=== PATIENT | male | born 1935 | race Caucasian/White ===

== ENCOUNTER 2020-07-12 10:36 | Outpatient (CLI) | payer MEDICARE, OTHER, SELFPAY ==
--- NOTE | 2020-07-12 11:11 | XR_ITS ---
WS: [id number] Exam: XR chest 2V* [id number] Date/Time of Exam: 07/12/2020 11:11 AM Reason For Exam: Shortness of breath Comparison 03/27/2017. The lungs are fully expanded. Chronic interstitial change in the left lower lobe. Heart size is koffi l. Signs of previous CABG surgery. No pleural effusion or pneumothorax. The mediastinum is normal in contour. Regional bony structures are unremarkable. XR/XR chest 2V* [id number] IMPRESSION: 1. Chronic interstitial changes in the left base. 2. No acute process noted.
== END 2020-07-12 10:37 | disposition home or self-care (01) ==
PROVIDERS: PCP Electrodiagnostic Medicine; Visit Provider Internal Medicine Critical Care Medicine
DX: R06.02 Shortness of breath (principal)
CPT/HCPCS: 71046

== ENCOUNTER → 2020-07-30 09:41 | Outpatient (BNVA) | payer MEDICARE, OTHER, SELFPAY | PROVIDERS: PCP Electrodiagnostic Medicine; Visit Provider Internal Medicine Critical Care Medicine | DX: I25.10 Atherosclerotic heart disease of native coronary artery without angina pectoris (principal) | CPT/HCPCS: 87635 ==

== ENCOUNTER 2020-08-03 11:19 | Outpatient (CLI) | payer MEDICARE, OTHER, SELFPAY ==
--- NOTE | 2020-08-03 12:45 | USCV_ITS ---
Florin Rouse Age: 85 Gender: M : 1935 Exam Date: 08/03/2020 11:53 Ordering Phys: Juliano Zavala MD Technologist: Maryjane Huitron Exam Location: [facility] [place] Indication: SOB BP: 146 / 69 HR: 52 Rhythm: Sinus Technical Quality: Fair MEASUREMENTS (Male / Female) Normal Values 2D ECHO LV Diastolic Diameter PLAX 5.8 cm 4.2 - 5.9 / 3.9 - 5.3 cm LV Systolic Diameter PLAX 4.9 cm LV Chamber Size 4.5 cm IVS Diastolic Thickness 0.9 cm 0.6 - 1.0 / 0.6 - 0.9 cm IVS Systolic Thickness 1.3 cm LVPW Diastolic Thickness 0.8 cm 0.6 - 1.0 / 0.6 - 0.9 cm LVPW Systolic Thickness 0.8 cm RV Chamber Size 3.7 cm LVOT Diameter 2.0 cm LV Ejection Fraction 2D Teich 32.4 % LV Ejection Fraction MOD 2C 55.8 % LV Ejection Fraction 2C AL 59.7 % LA Diameter 3.2 cm LA Width 3.5 cm LA Height 4.5 cm RA Width 2.7 cm RA Height 4.3 cm Aorta at Sinotubular Diameter 2.4 cm M-MODE LV Diastolic Diameter MM 4.9 cm 4.2 - 5.9 / 3.9 - 5.3 cm LV Systolic Diameter MM 4.2 cm LV Ejection Fraction MM Teich 33.6 % IVS Diastolic Thickness MM 0.6 cm 0.6 - 1.0 / 0.6 - 0.9 cm IVS Systolic Thickness MM 0.6 cm LVPW Diastolic Thickness MM 1.2 cm 0.6 - 1.0 / 0.6 - 0.9 cm LVPW Systolic Thickness MM 1.4 cm Aortic Annulus Diameter 3.0 cm LA Ao Ratio MM 1.2 MV E Point Septal Separation 0.6 cm DOPPLER AV Peak Velocity 92.0 cm/s LVOT Peak Velocity 66.0 cm/s AV Area Cont Eq vti 2.3 cm squared AV Area Cont Eq pk 2.3 cm squared MV Area PHT 2.6 cm squared Mitral E to A Ratio 0.9 MV E' Velocity 31.0 cm/s Mitral E to MV E' Ratio 4.9 Mitral E to LV E' Lateral Ratio 5.2 Mitral E to LV E' Septal Ratio 4.7 TR Peak Velocity 209.2 cm/s TR Peak Gradient 17.5 mmHg TR Mean Velocity 166.4 cm/s TR Mean Gradient 12.2 mmHg TR Velocity Time Integral 71.0 cm TV Peak E Velocity 48.0 cm/s Right Atrial Pressure 3.0 mmHg Pulmonary Artery Systolic Pressu 20.5 mmHg PV Peak Velocity 98.0 cm/s RV Acceleration Time 0.1 s RV Ejection Time 0.2 s RV AcT/ET 0.3 FINDINGS Left Ventricle Moderate diffuse hypokinesia of the septum and anteroseptal segments. Overall LV ejection fraction around 50% Right Ventricle The right ventricle is normal in size and function. Right Atrium The right atrium is normal in size. Left Atrium Mildly increased left atrial size. Mitral Valve Mild mitral valve regurgitation. Mild mitral annular calcification. Aortic Valve Thickened aortic valve. Tricuspid Valve Mild tricuspid valve regurgitation. Pulmonic Valve Structurally normal pulmonic valve without significant stenosis. There is no pulmonic regurgitation. Pericardium Normal pericardium without effusion. Aorta Normal ascending aorta dimension. CONCLUSIONS Normal LV size with slightly diminished ejection fraction of 50%. Wall motion abnormality as mentioned above. Mildly increased left atrial size. Mild mitral and tricuspid regurgitation. Thickened aortic valve. Mild mitral annular calcification. There is no pericardial effusion. There are no intracardiac masses. Compared to the study from 03/28/2017, there may not be a significant change Dr Mynor Greenwood MD [facility] (Electronically Signed) Final Date: 03 August 2020 18:41 S
--- NOTE | 2020-08-03 13:15 | PFTS_ITS ---
Date of Study:08/03/20 Date of Dictation: 08/06/20 MECHANICS: Prebronchodilator Forced vital capacity (FVC) is normal. Prebronchodilator Forced expiratory volume in one second (FEV1) is normal . FEV1/FVC is normal. Post bronchodilator study not performed. FLOW VOLUME LOOP: normal . LUNG VOLUMES: Total lung capacity (TLC) is Normal . Residual volume (RV) is normal. DIFFUSING CAPACITY FOR CARBON MONOXIDE: Moderately reduced 48% . INTERPRETATION: Moderately reduced gas transfer . Isolated gas transfer with Normal Spirometry and Lung volumes suggest pulmonary vascular disease. Correlate Clinically. MTDD
== END 2020-08-03 11:20 | disposition home or self-care (01) ==
LOC: RT 11:22
PROVIDERS: PCP Electrodiagnostic Medicine; Visit Provider Internal Medicine Critical Care Medicine
DX: R06.02 Shortness of breath (principal); I08.3 Combined rheumatic disorders of mitral, aortic and tricuspid valves
CPT/HCPCS: 93306; 94010; 94726; 94729

== ENCOUNTER 2020-08-12 08:02 | Outpatient (CLI) | payer MEDICARE, OTHER, SELFPAY ==
--- NOTE | 2020-08-12 08:30 | CT_ITS ---
WS: [id number] CT CHEST CT-HIGH RESOLUTION, NONCONTRAST. HISTORY: Fibrosis. Technique: High-resolution chest CT is performed in inspiration, expiration, supine and prone positio neil. All CT scans at [facility] use at least one of these dose optimization techniques: automa mami exposure control; mA and/or kV adjustment per patient size (includes targeted exams where dose is matched to clinical indication); or iterative reconstruction. DLP: 1501.65 mGycm COMPARISON: 12/10/2015 Findings: Mild pulmonary hyperexpansion. There are numerous subcentimeter nodules scattered throughou t both lungs which are stable since 12/10/2015. The largest nodules measure 5 to 6 mm and these are pr edominantly within the RIGHT lung. There is some very mild interstitial thickening in the posterior l ungs. No honeycombing or traction bronchiectasis of any significance is appreciated at this time. The re is mild thickening of the interstitium and reticular prominence. There is no air trapping on inspi ration and expiration. No significant groundglass attenuation on the inspiratory portion. There is no area of persistent atelectasis. Moderate atherosclerosis of the aorta. Prior CABG. Pulmonary artery size is slightly enlarged. No jc nopathy in the thorax. Slight elevation of the LEFT diaphragm. Adrenal glands are negative. Moderate atrophy of the spleen. CT/CT chest wo con [id number] Impression: 1. Mild interstitial thickening and reticulation most significant in the poste rior lower lung burton. No honeycombing or traction bronchiectasis at this time of any significance. Consider nonspecific interstitial pneumonitis. 2. Subcentimeter pulmonary nodules are stable since 2015. 3. Prior CABG. 4. No adenopathy.
== END 2020-08-12 08:03 | disposition home or self-care (01) ==
PROVIDERS: PCP Electrodiagnostic Medicine; Visit Provider Internal Medicine Critical Care Medicine
DX: R06.02 Shortness of breath (principal); J84.10 Pulmonary fibrosis, unspecified; Z95.1 Presence of aortocoronary bypass graft; R91.8 Other nonspecific abnormal finding of lung field
CPT/HCPCS: 71250

== ENCOUNTER → 2021-09-13 08:12 | Outpatient (BNVA) | payer MEDICARE, SELFPAY | PROVIDERS: PCP Electrodiagnostic Medicine; Referring Provider Electrodiagnostic Medicine; Visit Provider Surgery | DX: D50.0 Iron deficiency anemia secondary to blood loss (chronic) (principal) | CPT/HCPCS: 99203 ==

== ENCOUNTER → 2021-10-05 08:41 | Outpatient (BNVA) | payer MEDICARE, SELFPAY | PROVIDERS: PCP Electrodiagnostic Medicine; Visit Provider Surgery | DX: D50.9 Iron deficiency anemia, unspecified (principal) | CPT/HCPCS: 99213 ==

== ENCOUNTER → 2022-06-06 09:46 | Outpatient (BNVA) | payer MEDICARE, SELFPAY | PROVIDERS: PCP Electrodiagnostic Medicine; Referring Provider Electrodiagnostic Medicine; Visit Provider Orthopaedic Surgery | DX: S62.305A Unspecified fracture of fourth metacarpal bone, left hand, initial encounter for closed fracture (principal); W00.0XXA Fall on same level due to ice and snow, initial encounter | CPT/HCPCS: 73130 ==

== ENCOUNTER 2022-06-06 15:13 | Outpatient (CLI) | payer MEDICARE, SELFPAY | END 2022-06-06 15:14 | disposition home or self-care (01) | LOC: SPT 15:14 | PROVIDERS: PCP Electrodiagnostic Medicine; Visit Provider Orthopaedic Surgery | DX: Z46.89 Encounter for fitting and adjustment of other specified devices (principal); S62.305D Unspecified fracture of fourth metacarpal bone, left hand, subsequent encounter for fracture with routine healing; X58.XXXD Exposure to other specified factors, subsequent encounter | CPT/HCPCS: 26600; 97760; L3984 ==

== ENCOUNTER → 2022-06-20 10:21 | Outpatient (BNVA) | payer MEDICARE, SELFPAY | PROVIDERS: PCP Electrodiagnostic Medicine; Visit Provider Orthopaedic Surgery | DX: S62.305A Unspecified fracture of fourth metacarpal bone, left hand, initial encounter for closed fracture (principal); X58.XXXA Exposure to other specified factors, initial encounter | CPT/HCPCS: 73130; 99024 ==

== ENCOUNTER 2023-05-07 09:41 | Outpatient (CLI) | payer OTHER, SELFPAY ==
--- NOTE | 2023-05-07 09:48 | CT_ITS ---
WS: [id number] CT chest w con* [id number] HISTORY: PULMONARY NODULES TECHNIQUE: Axial imaging performed through the thorax. Coronal and sagittal reformats are submitted. All CT scans at [facility] use at least one of these dose optimization techniques: automated exposure control; mA and/or kV adjustment per patient size (includes targeted exams where dose is mat ched to clinical indication); or iterative reconstruction. CONTRAST: Omnipaque 350; 100 mL IV. DLP: 412.20 mGy.cm COMPARISON: 08/12/2020, 12/10/2015 Lungs and central airway: Chronic emphysematous changes. Interstitial thickening in the lower lung fi elds. There are scattered very small nodules throughout both lungs. No mass or increasing size of nod ule since 2016. There is a new area of groundglass attenuation along the inferior LEFT hilar region, medial LEFT lower lobe which needs to be further evaluated. Groundglass attenuation measures 2.0 x 2. 3 cm. Pleura: Normal. No pleural effusion. Heart and pericardium: Normal size heart with no pericardial effusion. Prior median sternotomy. Mediastinum and monico: No mediastinum or hilar adenopathy. Vessels: Mild atherosclerosis aorta. No aneurysm. Normal size pulmonary artery. Chest wall and lower neck: No soft tissue masses. Upper abdomen: Small to moderate hiatal hernia. Suprarenal atherosclerotic changes within the aorta. Atherosclerotic changes in the mesenteric arteries. Gallbladder is mildly contracted. Severe atrophy of the pancreas is diffuse. Osseous structures: No destructive process. IMPRESSION: 1. New groundglass attenuation in the medial LEFT lower lobe measures 2.0 x 2.3 cm. This will need t o be further evaluated long-term to demonstrate stability. This may be an area of hypersensitivity pn eumonia. Low-grade neoplasm not excluded. 2. Additional interstitial thickening in the lower lung burton and pulmonary nodules are stable. 3. Prior CABG. 4. Moderate atherosclerosis aorta. 5. No pneumonia.
[2023-05-07 10:10] LABS: Blood Urea Nitrogen 25 mg/dL (8-23)
[2023-05-07] MEDS: iohexol 350 mg/mL 500 mL Btl (per mL) IV (10:14)
== END 2023-05-07 09:42 | disposition home or self-care (01) ==
LOC: RAD 09:42
PROVIDERS: PCP Electrodiagnostic Medicine; Visit Provider Family Medicine
DX: Z01.89 Encounter for other specified special examinations (principal); R91.8 Other nonspecific abnormal finding of lung field; I70.0 Atherosclerosis of aorta; J43.9 Emphysema, unspecified; Z98.890 Other specified postprocedural states
CPT/HCPCS: 71260; 82565; 84520; Q9967

== ENCOUNTER → 2023-06-26 14:28 | Outpatient (BNVA) | payer OTHER, SELFPAY | PROVIDERS: PCP Electrodiagnostic Medicine; Referring Provider Family Medicine; Visit Provider Internal Medicine Pulmonary Disease | DX: R91.8 Other nonspecific abnormal finding of lung field (principal); R06.02 Shortness of breath; I25.10 Atherosclerotic heart disease of native coronary artery without angina pectoris; G47.33 Obstructive sleep apnea (adult) (pediatric) | CPT/HCPCS: 99204 ==

== ENCOUNTER 2023-07-17 07:47 | Outpatient (CLI) | payer OTHER, SELFPAY | END 2023-07-17 07:48 | disposition home or self-care (01) | PROVIDERS: PCP Electrodiagnostic Medicine; Visit Provider Internal Medicine Pulmonary Disease | DX: R06.02 Shortness of breath (principal) | CPT/HCPCS: 94010; 94618; 94726; 94729 ==

== ENCOUNTER → 2023-08-09 13:50 | Outpatient (BNVA) | payer OTHER, SELFPAY | PROVIDERS: PCP Electrodiagnostic Medicine; Visit Provider Internal Medicine Pulmonary Disease | DX: R91.8 Other nonspecific abnormal finding of lung field (principal); R06.02 Shortness of breath; G47.33 Obstructive sleep apnea (adult) (pediatric); I25.10 Atherosclerotic heart disease of native coronary artery without angina pectoris; Z87.891 Personal history of nicotine dependence; I12.9 Hypertensive chronic kidney disease with stage 1 through stage 4 chronic kidney disease, or unspecified chronic kidney disease; N18.9 Chronic kidney disease, unspecified | CPT/HCPCS: 99214 ==

== ENCOUNTER 2023-08-28 07:41 | Outpatient (CLI) | payer OTHER, SELFPAY ==
--- NOTE | 2023-08-28 08:00 | PETR_ITS ---
PROCEDURE INFORMATION: Exam: PET/CT Skull Base to Mid-thigh Exam date and time: 08/28/2023 8:45 AM Age: 88 years old Clinical indication: Abnormal findings; Pulmonary nodules. Impression: . 1. New groundglass attenuation in the medial left lower lobe measures 2.0 x 2.3 cm. This will need to be further evaluated long-term to demonstrate stability. This may be an area of hypersensitivity pneumonia. Low-grade neoplasm not excluded. 2. Additional interstitial thickening in the lower lung burton and pulmonary nodules are stable; Prior surgery; Surgery date: 6+ months; Surgery type: Cabg; Additional info: Abnormal CT LABS AND CLINICAL REPORTS: Glucose: 108 mg/dl Treatment strategy for malignancy (PET staging): Initial Staging (PI) TECHNIQUE: Imaging protocol: Following at least four-hour fasting and following the injection of radiopharmaceutical, low dose CT images were obtained. Then, PET images were obtained. Attenuation corrected images were constructed using the CT scan. Fused images of PET and CT were reviewed. The standardized uptake values (SUV) reported below are maximum values within a region of interest, expressed in gm/ml. Exam includes orbital meatal line to mid-thigh. Radiopharmaceutical: 14.8 mCi F-18 FDG (Fluorodeoxyglucose), IV. Time of imaging post radiopharmaceutical administration: 1 hour Injection site: Left antecubital vein COMPARISON: CT chest 05/07/2023 and 08/12/2020 FINDINGS: Brain: Visualized brain has normal physiologic uptake. Pharynx: No abnormal uptake. Larynx: No abnormal uptake. Lungs, pleura and trachea: Borderline increased uptake of 2.3-2.4 SUV is associated with dependent reticular/ground-glass opacities in the lower lobes morphologically stable since 2020 is suggestive of benign finding suggestive of mild fibrosis. Focal area of ground-glass opacity medially in the left lower lobe in the anterior perihilar area noted on 05/07/2023 is not well appreciated on the current exam though this area is poorly evaluated due to significant breathing motion artifacts. 1.5 cm ground-glass opacity in the right upper lobe on axial image 79 of series 3 is stable in size since 2020. No purely solid nodules or masses. No pleural effusion. Heart: Normal physiologic uptake. Status post CABG surgery. There is no pericardial effusion. Mediastinal space: See below in lymph nodes . Liver: No abnormal uptake. Gallbladder and bile ducts: No abnormal uptake. No calcified gallstones. Pancreas: No abnormal uptake. Spleen: No abnormal uptake. No splenomegaly. The calcified granulomas in the spleen. Adrenal glands: No abnormal uptake. No nodules. Kidneys and ureters: Normal physiologic uptake. The no hydronephrosis. The simple cysts in the left kidney with the largest cyst exophytic from the lower pole measuring 5 cm. Stomach and bowel: Diffusely increased uptake in the left and right colon and a few loops of ileum with is benign. Vasculature: No abnormal uptake. No aortic aneurysm. Lymph nodes: Mildly increased uptake of 3.9 SUV in the right hilum. Stable sequela of exposure to granulomatous disease with calcified granulomas in normal size paratracheal, subcarinal and bilateral hilar lymph nodes. No FDG avid lymphadenopathy in the head, neck, chest, abdomen, pelvis, and extremities. Bones/joints: No abnormal uptake in the visualized axial and appendicular skeleton. Status post sternotomy. Soft tissues: No abnormal uptake in the visualized head, neck, chest, abdomen, pelvis, and extremities. PET/PET [facility] INITIAL [id number] IMPRESSION: No focal abnormal radiotracer uptake within the left lower lobe anterior central area where new ground-glass opacity was present on 05/07/2023. This opacity is not appreciated on the current exam though the evaluation is limited by breathing motion artifacts. 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 Mildly increased uptake of 3.9 SUV within the normal size right hilar lymph nodes is probably benign reactive in nature.
== END 2023-08-28 07:42 | disposition home or self-care (01) ==
LOC: RAD 07:41
PROVIDERS: PCP Electrodiagnostic Medicine; Visit Provider Internal Medicine Pulmonary Disease
DX: R91.8 Other nonspecific abnormal finding of lung field (principal)
CPT/HCPCS: 78815; A9552

== ENCOUNTER → 2023-09-28 08:36 | Outpatient (BNVA) | payer OTHER, SELFPAY | PROVIDERS: PCP Electrodiagnostic Medicine; Visit Provider Internal Medicine Pulmonary Disease | DX: R91.8 Other nonspecific abnormal finding of lung field (principal); R06.02 Shortness of breath; I25.10 Atherosclerotic heart disease of native coronary artery without angina pectoris; G47.33 Obstructive sleep apnea (adult) (pediatric); Z87.891 Personal history of nicotine dependence | CPT/HCPCS: 99214 ==

== ENCOUNTER 2023-11-20 20:00 | Outpatient (CLI) | payer OTHER, SELFPAY | END 2023-11-20 20:01 | disposition home or self-care (01) | LOC: SLEEP 22:44 | PROVIDERS: PCP Electrodiagnostic Medicine; Visit Provider Internal Medicine Pulmonary Disease | DX: G47.33 Obstructive sleep apnea (adult) (pediatric) (principal) | CPT/HCPCS: 95811 ==

== ENCOUNTER 2024-05-21 15:04 | Outpatient (CLI) | payer OTHER, SELFPAY ==
[2024-05-21 15:39] LABS: Basophils % 0.4 %; Eosinophils # 0.1 10^3/uL (0.0-0.8); Eosinophils % 1.5 %; Hematocrit 42.5 % (37-53); Lymphocytes # 2.1 10^3/uL (0.8-4.8); Lymphocytes % 26.5 %; Mean Corpuscular HGB Conc 32.2 g/dL (30-55); Mean Corpuscular Hemoglobin 33.7 pg (27-33); Mean Corpuscular Volume 104.4 fl (82-101); Mean Platelet Volume 11.5 fL (7.4-10.4); Monocytes # 0.8 10^3/uL (0.2-0.9); Monocytes % 10.2 %; Neutrophils # 4.88 10^3/uL (1.8-7.7); Neutrophils % 61.3 %; Nucleated Red Blood Cells % 0 %; Platelet Count 230 10^3/cmm (157-399); Red Blood Count 4.07 10^6/uL (3.85-5.65); Red Cell Distribution Width 13.3 % (12.1-15.1); White Blood Count 7.96 10^3/uL (3.29-11.43)
[2024-05-21 16:07] LABS: Alanine Aminotransferase 20 U/L (0-41); Albumin Level 3.7 g/dL (3.5-5.2); Alkaline Phosphatase 74 U/L (40-130); Aspartate Amino Transferase 30 U/L (0-40); Blood Urea Nitrogen 19 mg/dL (8-23); Calcium 9.9 mg/dL (8.5-10.5); Carbon Dioxide 24 mmol/L (22-29); Chloride 106 mmol/L (98-107); Glucose 125 mg/dL (65-115); Osmolality Calculated 294 mOsm/kg (285-295); Sodium 140 mmol/L (136-145); Thyroid Stimulating Hormone 0.86 uIU/mL (0.27-4.20); Total Bilirubin 1.3 mg/dL (0.15-1.2); Total Protein 6.7 g/dL (6.6-8.7)
[2024-05-21 16:36] LABS: Anion Gap 14.4 (5-19); Potassium 4.4 mmol/L (3.5-5.1)
== END 2024-05-21 15:05 | disposition home or self-care (01) ==
LOC: LAB 15:10
PROVIDERS: PCP Electrodiagnostic Medicine; Visit Provider Internal Medicine Interventional Cardiology
DX: I48.0 Paroxysmal atrial fibrillation (principal); Z95.1 Presence of aortocoronary bypass graft; I10 Essential (primary) hypertension; I25.810 Atherosclerosis of coronary artery bypass graft(s) without angina pectoris; I34.0 Nonrheumatic mitral (valve) insufficiency; I51.9 Heart disease, unspecified
CPT/HCPCS: 80053; 84443; 85025

== ENCOUNTER 2024-07-21 12:31 | Emergency (ER) | payer OTHER, MEDICARE, SELFPAY ==
--- NOTE | 2024-07-21 12:35 | ECG_ITS ---
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1935 Requested By: Bertha Blas Order Number: [id number] Reading MD: Measurements Intervals [place] Rate: 140 P: 0 [place]: 0 QRS: 17 QRSD: 89 T: 238 QT: 295 QTc: 450 Interpretive Statements ATRIAL FLUTTER/TACHYCARDIA WITH RAPID VENTRICULAR RESPONSE ST DEVIATION AND MODERATE T-WAVE ABNORMALITY, CONSIDER LATERAL ISCHEMIA [-0.1+ mV T-WAVE IN I/aVL/V5/V6] ST DEVIATION AND MODERATE T-WAVE ABNORMALITY, CONSIDER INFERIOR ISCHEMIA [-0.1+ mV T-WAVE IN II/aVF] No previous ECG available for comparison [email or web address]
[2024-07-21 12:37] VITALS: BP 135/101; PULSE 140; RESP 16; TEMP 36.3; O2SAT 97; BMI 24.4
--- NOTE | 2024-07-21 12:43 | PC.PHAR ---
patient is va, sent fax at 12:30pm
--- NOTE | 2024-07-21 12:55 | XR_ITS ---
WS: [id number] XR chest 1V portable [id number] REASON FOR EXAM: tachycardia FINDINGS: The chest is stable compared to 03/28/2023. Previous coronary artery bypass surgery. Moderate tortuosity and ectasia of the thoracic aorta. Heart size within normal limits. Calcified granulomatous disease bilaterally. No acute pulmonary parenchymal or pleural abnormality is identified. XR/XR chest 1V portable [id number] IMPRESSION: Stable chest without acute abnormality.
--- NOTE | 2024-07-21 12:56 | W.ED.BACK ---
Documented by User: ROHAN Gonzalez 07/21/24 14:28 HPI - Back Pain/Injury General: Chief Complaint: Back Pain/Injury Stated Complaint: back pain - afib Time Seen by Provider: 07/21/24 12:47 Source: patient Mode of arrival: EMS Limitations: no limitations History of Present Illness: Patient is an 89-year-old male presents to ED today with complaint of lower back pain. He states this is the primary reason to which he called an ambulance. Patient states he fell about 2 weeks ago. He states his primary care ordered him lumbar x-rays. These were completed on 07/15 and showed a moderate L1 compression fracture. Patient states he has been taking Oxycodone 10mg every hours as needed. Patient states when he lies flat he does not have any discomfort at all. He does feel like his pain medications take the edge off but continues to have significant pain with ambulation. He is not sure if his primary care, Dr. Garcia referred him to Dr. Pelayo but did mention follow-up for potential kyphoplasty. Patient does not have any physical complaints apart from his back. He is lying in bed and at time of my initial examination is not complaining of any discomfort. He does arrive to the emergency department tachycardic with a heart rate in the 140s. Patient states he has a history of atrial fibrillation. He is on anticoagulation as well as a rate drug but is not sure the name of this. Patient states he did take his medications this morning. He is not complaining of any chest pain, shortness of breath, difficulty breathing, palpitations. 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 He also was supposed to have an MRI this morning at 9:00 of his back but canceled stating he did not have a ride-states they rescheduled for 12:30 today but looking at his chart it is rescheduled for 2:30. elicited complaint: back pain and back injury Onset (ago): week(s) Timing: constant Severity: severe Similar Symptoms Previously: No Location: lumbar spine Radiation: none Exacerbating factors: movement and walking Relieving factors: other (lying flat) Associated symptoms: Reports no associated symptoms; Deny abdominal pain, chills, dysuria, fatigue, fever(s), hematuria or syncope Treatments prior to arrival: prescription analgesics Work related injury: No Related Data Home Medications ?Medication ?Instructions ?Recorded ?Confirmed lisinopril 2.5 mg tablet 2.5 mg PO DAILY 03/01/20 07/21/24 simvastatin 10 mg tablet 20 mg PO DAILY 03/01/20 07/21/24 insulin glargine 100 unit/mL 38 unit SUBCUT DAILY 10/18/20 07/21/24 subcutaneous solution (Lantus U-100 Insulin) insulin regular human 100 unit/mL 20 unit SUBCUT BID 10/18/20 07/21/24 injection solution (Novolin R Regular U-100 Insulin) isosorbide mononitrate 30 mg 60 mg PO DAILY 10/18/20 07/21/24 tablet,extended release 24 hr levothyroxine 50 mcg tablet 75 mcg PO DAILY 10/18/20 07/21/24 metformin 1,000 mg tablet 1,000 mg PO BID 10/18/20 07/21/24 alprazolam 0.25 mg tablet 0.25 mg PO DAILY PRN Anxiety 12/15/20 07/21/24 nitroglycerin 0.4 mg sublingual 0.4 mg sublingual Q5M PRN Chest 12/15/20 07/21/24 tablet (Nitrostat) Pain metoprolol tartrate 25 mg tablet 25 mg PO BID 12/31/20 07/21/24 escitalopram oxalate 10 mg tablet 10 mg PO DAILY 07/21/24 07/21/24 hydrocodone 5 mg-acetaminophen 325 1 tab PO Q6H 07/21/24 07/21/24 mg tablet oxycodone 10 mg tablet 10 mg PO Q4H PRN Pain 07/21/24 07/21/24 Allergies Allergy/AdvReac Type Severity Reaction Status Date / Time No Known Allergies Allergy Verified 09/28/23 08:59 Review of Systems Const: Denies: fever(s), chills, body aches, fatigue or malaise Card: Reports: irregular heart rhythm (hx of atrial fib); Denies: chest pain, palpitations, edema, swelling of feet/ankles, lightheadedness, syncope, pre-syncope, dyspnea on exertion, orthopnea, leg pain with exertion or acrocyanosis Resp: Denies: dyspnea GI: Denies: abdominal pain : Denies: flank pain, dysuria or hematuria Musc: Reports: back pain; Denies: neck pain, extremity pain, extremity swelling, joint pain, joint swelling or joint redness Skin/Breast: Denies: rash Neuro: Denies: headache(s), numbness in extremities, weakness in extremities or sensory changes PFSH ED PFSH: Medical History Anemia CKD (chronic kidney disease) CAD (coronary artery disease) Mixed hyperlipidemia Atrial fibrillation Hypertension CVA (cerebral vascular accident) Hypersomnia Surgical History History of PTCA History of colonoscopy Hx of CABG Family History Mother Clotting disorder Father CAD (coronary artery disease) Brother CAD (coronary artery disease) Sister Cancer Denies family history of Diabetes Dementia Chronic kidney disease (CKD) Suicide Anesthesia complication Bleeding disorder Lung disease Stroke Social History Smoking and tobacco/nicotine status: former use of tobacco/nicotine Quit status (tobacco/nicotine): has quit using Year quit tobacco: 1973 Former quit date comment: Hx of 0.5 PPD x 12 Years Second hand smoke exposure: No Alcohol intake: never Substance/Drug Use: never Lives independently: Yes Household members: spouse Marital status: service: Yes Current occupational status: retired Pets and animals: Yes Pets & animals: farm animals Do you think of yourself as: Straight/Heterosexual Current gender identity: Male Physical Exam Const: COMMON NORMALS: no acute distress, average body habitus, patient oriented x3, no limitations, healthy appearing, alert and well nourished GENERAL APPEARANCE: cooperative Neck/C-Spine: COMMON NORMALS: full ROM, no lymphadenopathy, supple, no meningeal signs and no JVD Resp: COMMON NORMALS: normal respiratory effort and clear to auscultation bilaterally AUSCULTATION: clear to auscultation bilaterally Cardio: COMMON NORMALS: no JVD and regular rhythm RATE: tachycardic RHYTHM: regular rhythm GI: COMMON NORMALS: Normal to inspection, nondistended, normoactive bowel sounds present, Soft to palpation, non-tender, No hepatosplenomegaly present and no masses PALPATION: Yes Soft to palpation and Yes No hepatosplenomegaly present : COMMON NORMALS: Yes no CVA tenderness BLADDER/KIDNEY EXAM: Yes no CVA tenderness Back/Pelvis: COMMON NORMALS: no CVA tenderness LUMBAR SPINE/LOWER BACK: Yes lumbar spinal tenderness Extremity: COMMON NORMALS: normal to inspection GENERAL: Yes normal exam except as noted Neuro: COMMON NORMALS: patient oriented x3 SENSORIUM/ORIENTATION: Yes alert MENINGEAL SIGNS: Yes no meningeal signs Skin: COMMON NORMALS: no rashes or lesions noted GENERAL SKIN EXAM: no rashes or lesions noted Course ED course: infection prevention coordinator was able to verify that MRI is scheduled for 2:30 today. She also contacted Brendon Jacome who confirmed patient is being referred to Dr. Pelayo. ES Vital Signs: Vital signs: Vital Signs Temperature 97.3 F L 07/21/24 12:37 Pulse Rate 95 07/21/24 14:46 Respiratory Rate 16 07/21/24 14:46 Blood Pressure 144/78 07/21/24 14:46 Pulse Oximetry 94 07/21/24 14:46 Oxygen Delivery Me thod Room Air 07/21/24 14:15 MDM - Back Pain/Injury Medical Decision Making Patient is an 89-year-old male here for complaints of lower back pain related to a known L1 compression fracture. He states he is not having any pain while lying flat but has significant discomfort with walking/movement. He has been prescribed oxycodone 10mg by his primary care provider that he is using every 4 hours. We did discuss taking this with a muscle relaxer. Patient feels like he has some of these at home he can try. I do not feel we need to increase pain dosing at this time. He arrived to the emergency department tachycardic with a rate of 140. He does have a history of atrial fibrillation however his EKG upon arrival looked more sinus tachycardia. EKG was reviewed with Dr. Villa. Ultimately heart rate came down to the 90s without any intervention. His blood work and UA are nonactionable. CXR is stable. As previously discussed, he does have an MRI of his lumbar spine scheduled for 2:30 today. Patient will be allowed discharge with recommendations to go straight to this appointment. Brendon Jacome did verify that they are currently scheduling him an appointment with Dr. Pelayo. Medical Records I reviewed the patient's medical records. Labs I reviewed the patient's lab results. 07/21/24 13:28 07/21/24 13:28 Radiology Impressions Chest X-Ray 07/21/24 12:55 IMPRESSION: Stable chest without acute abnormality. Laboratory Results WBC 11.32 10^3/uL (3.29-11.43) 07/21/24 13:28 RBC 5.10 10^6/uL (3.85-5.65) 07/21/24 13:28 Hgb 17.20 g/dL (11.27-16.99) H 07/21/24 13:28 Hct 52.7 % (37-53) 07/21/24 13:28 MCV 103.3 fl (82-101) H 07/21/24 13:28 MCH 33.7 pg (27-33) H 07/21/24 13:28 MCHC 32.6 g/dL (30-55) 07/21/24 13:28 RDW 13.0 % (12.1-15.1) 07/21/24 13:28 Plt Count 216 10^3/cmm (157-399) 07/21/24 13:28 MPV 11.3 fL (7.4-10.4) H 07/21/24 13:28 Neut % (Auto) 73.7 % 07/21/24 13:28 Lymph % (Auto) 17.9 % 07/21/24 13:28 [place] % (Auto) 6.4 % 07/21/24 13:28 Eos % (Auto) 1.3 % 07/21/24 13:28 Baso % (Auto) 0.3 % 07/21/24 13:28 Neut # (Auto) 8.34 10^3/uL (1.8-7.7) H 07/21/24 13:28 Lymph # (Auto) 2.0 10^3/uL (0.8-4.8) 07/21/24 13:28 [place] # (Auto) 0.7 10^3/uL (0.2-0.9) 07/21/24 13:28 Eos # (Auto) 0.2 10^3/uL (0.0-0.8) 07/21/24 13:28 Baso # (Auto) 0.0 10^3/uL (0.0-0.1) 07/21/24 13:28 Nucleated RBC % (auto) 0 % 07/21/24 13:28 Nucleated RBCs # 0.0 /100WBC 07/21/24 13:28 Sodium 135 mmol/L (136-145) L 07/21/24 13:28 Potassium 4.7 mmol/L (3.5-5.1) 07/21/24 13:28 Chloride 98 mmol/L (98-107) 07/21/24 13:28 Carbon Dioxide 21 mmol/L (22-29) L 07/21/24 13:28 Anion Gap 20.7 (5-19) H 07/21/24 13:28 BUN 28 mg/dL (8-23) H 07/21/24 13:28 Creatinine 1.2 mg/dL (0.7-1.2) 07/21/24 13:28 GFR Calculation Not Reportable 07/21/24 13:28 Glucose 160 mg/dL (65-115) H 07/21/24 13:28 Calculated Osmolality 289 mOsm/kg (285-295) 07/21/24 13:28 Calcium 9.6 mg/dL (8.5-10.5) 07/21/24 13:28 Total Bilirubin 1.7 mg/dL (0.15-1.2) H 07/21/24 13:28 AST 31 U/L (0-40) 07/21/24 13:28 ALT 27 U/L (0-41) 07/21/24 13:28 Alkaline Phosphatase 112 U/L (40-130) 07/21/24 13:28 Total Protein 7.4 g/dL (6.6-8.7) 07/21/24 13:28 Albumin 3.4 g/dL (3.5-5.2) L 07/21/24 13:28 Globulin 4.0 g/dL (1.3-4.6) 07/21/24 13:28 Urine Color Yellow (Yellow) 07/21/24 13:54 Urine Appearance Clear (CLEAR) 07/21/24 13:54 Urine pH 5 (5-7) 07/21/24 13:54 Ur Specific [place] 1.025 (1.005-1.030) 07/21/24 13:54 Urine Protein Neg (Negative) 07/21/24 13:54 Urine Glucose (UA) 4+ (Normal) H 07/21/24 13:54 Urine Ketones 2+ (Negative) H 07/21/24 13:54 Urine Blood 3+ (Negative) H 07/21/24 13:54 Urine Nitrate Negative (Negative) 07/21/24 13:54 Urine Bilirubin Neg (Negative) 07/21/24 13:54 Urine Urobilinogen Norm mg/dL (Negative) 07/21/24 13:54 Ur Leukocyte Esterase Negative (Negative) 07/21/24 13:54 Urine RBC 6-10 /hpf (0-2) 07/21/24 13:54 Urine WBC 0-5 /hpf (0-5) 07/21/24 13:54 Ur Squamous Epith Cells 0-5 /hpf (0-5) 07/21/24 13:54 Amorphous Sediment Not Reportable 07/21/24 13:54 Urine Bacteria None seen /hpf (NONE) 07/21/24 13:54 Hyaline Casts 1.65 /lpf 07/21/24 13:54 All radiology interpretation(s) finalized by discharge Discharge Plan Discharge Patient Disposition: Home Clinical Impression: Closed compression fracture of L1 vertebra Qualifiers: Encounter type: initial encounter Qualified Code(s): S32.010A - Wedge compression fracture of first lumbar vertebra, initial encounter for closed fracture Condition: Stable Prescriptions: No Action simvastatin 10 mg tablet 20 mg PO DAILY lisinopril 2.5 mg tablet 2.5 mg PO DAILY Lantus U-100 Insulin 100 unit/mL solution 38 unit SUBCUT DAILY Novolin R Regular U100 Insulin 100 unit/mL solution 20 unit SUBCUT BID Rx Instructions: 20 qam & 12 qpm isosorbide mononitrate 30 mg tablet extended release 24 hr 60 mg PO DAILY levothyroxine 50 mcg tablet 75 mcg PO DAILY metformin 1,000 mg tablet 1,000 mg PO BID metoprolol tartrate 25 mg tablet 25 mg PO BID alprazolam 0.25 mg tablet 0.25 mg PO DAILY PRN (Reason: Anxiety) nitroglycerin [Nitrostat] 0.4 mg tablet, sublingual 0.4 mg sublingual Q5M PRN (Reason: Chest Pain) Rx Instructions: do not exceed 3 doses per episode hydrocodone-acetaminophen 5-325 mg tablet 1 tab PO Q6H escitalopram oxalate 10 mg tablet 10 mg PO DAILY oxycodone 10 mg Tablet 10 mg PO Q4H PRN (Reason: Pain) Discharge Orders: Discharge ED (Routine); Ordered 07/21/24 Ordered By: Bertha Blas Referrals: Alexander Garcia DO [Primary Care Provider] - Print Language: Tristanian Coding Level of Care Code ED Facilities Clerk for Chg Fwd Documented by User: Jeremiah Villa DO 07/21/24 15:18 HPI - Back Pain/Injury General: Chief Complaint: Back Pain/Injury Stated Complaint: back pain - afib Time Seen by Provider: 07/21/24 12:47 Related Data Home Medications ?Medication ?Instructions ?Recorded ?Confirmed lisinopril 2.5 mg tablet 2.5 mg PO DAILY 03/01/20 07/21/24 simvastatin 10 mg tablet 20 mg PO DAILY 03/01/20 07/21/24 insulin glargine 100 unit/mL 38 unit SUBCUT DAILY 10/18/20 07/21/24 subcutaneous solution (Lantus U-100 Insulin) insulin regular human 100 unit/mL 20 unit SUBCUT BID 10/18/20 07/21/24 injection solution (Novolin R Regular U-100 Insulin) isosorbide mononitrate 30 mg 60 mg PO DAILY 10/18/20 07/21/24 tablet,extended release 24 hr levothyroxine 50 mcg tablet 75 mcg PO DAILY 10/18/20 07/21/24 metformin 1,000 mg tablet 1,000 mg PO BID 10/18/20 07/21/24 alprazolam 0.25 mg tablet 0.25 mg PO DAILY PRN Anxiety 12/15/20 07/21/24 nitroglycerin 0.4 mg sublingual 0.4 mg sublingual Q5M PRN Chest 12/15/20 07/21/24 tablet (Nitrostat) Pain metoprolol tartrate 25 mg tablet 25 mg PO BID 12/31/20 07/21/24 escitalopram oxalate 10 mg tablet 10 mg PO DAILY 07/21/24 07/21/24 hydrocodone 5 mg-acetaminophen 325 1 tab PO Q6H 07/21/24 07/21/24 mg tablet oxycodone 10 mg tablet 10 mg PO Q4H PRN Pain 07/21/24 07/21/24 Allergies Allergy/AdvReac Type Severity Reaction Status Date / Time No Known Allergies Allergy Verified 09/28/23 08:59 PFSH ED PFSH: Medical History Anemia CKD (chronic kidney disease) CAD (coronary artery disease) Mixed hyperlipidemia Atrial fibrillation Hypertension CVA (cerebral vascular accident) Hypersomnia Surgical History History of PTCA History of colonoscopy Hx of CABG Family History Mother Clotting disorder Father CAD (coronary artery disease) Brother CAD (coronary artery disease) Sister Cancer Denies family history of Diabetes Dementia Chronic kidney disease (CKD) Suicide Anesthesia complication Bleeding disorder Lung disease Stroke Social History Smoking and tobacco/nicotine status: former use of tobacco/nicotine Quit status (tobacco/nicotine): has quit using Year quit tobacco: 1973 Former quit date comment: Hx of 0.5 PPD x 12 Years Second hand smoke exposure: No Alcohol intake: never Substance/Drug Use: never Lives independently: Yes Household members: spouse Marital status: service: Yes Current occupational status: retired Pets and animals: Yes Pets & animals: farm animals Do you think of yourself as: Straight/Heterosexual Current gender identity: Male Course Vital Signs: Vital signs: Vital Signs Temperature 97.3 F L 07/21/24 12:37 Pulse Rate 95 07/21/24 14:46 Respiratory Rate 16 07/21/24 14:46 Blood Pressure 144/78 07/21/24 14:46 Pulse Oximetry 94 07/21/24 14:46 Oxygen Delivery Me thod Room Air 07/21/24 14:15 MDM - Back Pain/Injury Medical Decision Making Patient is an 89-year-old male here for complaints of lower back pain related to a known L1 compression fracture. He states he is not having any pain while lying flat but has significant discomfort with walking/movement. He has been prescribed oxycodone 10mg by his primary care provider that he is using every 4 hours. We did discuss taking this with a muscle relaxer. Patient feels like he has some of these at home he can try. I do not feel we need to increase pain dosing at this time. He arrived to the emergency department tachycardic with a rate of 140. He does have a history of atrial fibrillation however his EKG upon arrival looked more sinus tachycardia. EKG was reviewed with Dr. Villa. Ultimately heart rate came down to the 90s without any intervention. His blood work and UA are nonactionable. CXR is stable. As previously discussed, he does have an MRI of his lumbar spine scheduled for 2:30 today. Patient will be allowed discharge with recommendations to go straight to this appointment. Brendon Jacome did verify that they are currently scheduling him an appointment with Dr. Pelayo. Chart reviewed and patient discussed with midlevel. Agree with assessment and plan. Labs 07/21/24 13:28 07/21/24 13:28 Radiology Impressions Chest X-Ray 07/21/24 12:55 IMPRESSION: Stable chest without acute abnormality. Laboratory Results WBC 11.32 10^3/uL (3.29-11.43) 07/21/24 13:28 RBC 5.10 10^6/uL (3.85-5.65) 07/21/24 13:28 Hgb 17.20 g/dL (11.27-16.99) H 07/21/24 13:28 Hct 52.7 % (37-53) 07/21/24 13:28 MCV 103.3 fl (82-101) H 07/21/24 13:28 MCH 33.7 pg (27-33) H 07/21/24 13:28 MCHC 32.6 g/dL (30-55) 07/21/24 13:28 RDW 13.0 % (12.1-15.1) 07/21/24 13:28 Plt Count 216 10^3/cmm (157-399) 07/21/24 13:28 MPV 11.3 fL (7.4-10.4) H 07/21/24 13:28 Neut % (Auto) 73.7 % 07/21/24 13:28 Lymph % (Auto) 17.9 % 07/21/24 13:28 [place] % (Auto) 6.4 % 07/21/24 13:28 Eos % (Auto) 1.3 % 07/21/24 13:28 Baso % (Auto) 0.3 % 07/21/24 13:28 Neut # (Auto) 8.34 10^3/uL (1.8-7.7) H 07/21/24 13:28 Lymph # (Auto) 2.0 10^3/uL (0.8-4.8) 07/21/24 13:28 [place] # (Auto) 0.7 10^3/uL (0.2-0.9) 07/21/24 13:28 Eos # (Auto) 0.2 10^3/uL (0.0-0.8) 07/21/24 13:28 Baso # (Auto) 0.0 10^3/uL (0.0-0.1) 07/21/24 13:28 Nucleated RBC % (auto) 0 % 07/21/24 13:28 Nucleated RBCs # 0.0 /100WBC 07/21/24 13:28 Sodium 135 mmol/L (136-145) L 07/21/24 13:28 Potassium 4.7 mmol/L (3.5-5.1) 07/21/24 13:28 Chloride 98 mmol/L (98-107) 07/21/24 13:28 Carbon Dioxide 21 mmol/L (22-29) L 07/21/24 13:28 Anion Gap 20.7 (5-19) H 07/21/24 13:28 BUN 28 mg/dL (8-23) H 07/21/24 13:28 Creatinine 1.2 mg/dL (0.7-1.2) 07/21/24 13:28 GFR Calculation Not Reportable 07/21/24 13:28 Glucose 160 mg/dL (65-115) H 07/21/24 13:28 Calculated Osmolality 289 mOsm/kg (285-295) 07/21/24 13:28 Calcium 9.6 mg/dL (8.5-10.5) 07/21/24 13:28 Total Bilirubin 1.7 mg/dL (0.15-1.2) H 07/21/24 13:28 AST 31 U/L (0-40) 07/21/24 13:28 ALT 27 U/L (0-41) 07/21/24 13:28 Alkaline Phosphatase 112 U/L (40-130) 07/21/24 13:28 Total Protein 7.4 g/dL (6.6-8.7) 07/21/24 13:28 Albumin 3.4 g/dL (3.5-5.2) L 07/21/24 13:28 Globulin 4.0 g/dL (1.3-4.6) 07/21/24 13:28 Urine Color Yellow (Yellow) 07/21/24 13:54 Urine Appearance Clear (CLEAR) 07/21/24 13:54 Urine pH 5 (5-7) 07/21/24 13:54 Ur Specific [place] 1.025 (1.005-1.030) 07/21/24 13:54 Urine Protein Neg (Negative) 07/21/24 13:54 Urine Glucose (UA) 4+ (Normal) H 07/21/24 13:54 Urine Ketones 2+ (Negative) H 07/21/24 13:54 Urine Blood 3+ (Negative) H 07/21/24 13:54 Urine Nitrate Negative (Negative) 07/21/24 13:54 Urine Bilirubin Neg (Negative) 07/21/24 13:54 Urine Urobilinogen Norm mg/dL (Negative) 07/21/24 13:54 Ur Leukocyte Esterase Negative (Negative) 07/21/24 13:54 Urine RBC 6-10 /hpf (0-2) 07/21/24 13:54 Urine WBC 0-5 /hpf (0-5) 07/21/24 13:54 Ur Squamous Epith Cells 0-5 /hpf (0-5) 07/21/24 13:54 Amorphous Sediment Not Reportable 07/21/24 13:54 Urine Bacteria None seen /hpf (NONE) 07/21/24 13:54 Hyaline Casts 1.65 /lpf 07/21/24 13:54 Discharge Plan Discharge Patient Disposition: Home Clinical Impression: Closed compression fracture of L1 vertebra Qualifiers: Encounter type: initial encounter Qualified Code(s): S32.010A - Wedge compression fracture of first lumbar vertebra, initial encounter for closed fracture Condition: Stable Prescriptions: No Action simvastatin 10 mg tablet 20 mg PO DAILY lisinopril 2.5 mg tablet 2.5 mg PO DAILY Lantus U-100 Insulin 100 unit/mL solution 38 unit SUBCUT DAILY Novolin R Regular U100 Insulin 100 unit/mL solution 20 unit SUBCUT BID Rx Instructions: 20 qam & 12 qpm isosorbide mononitrate 30 mg tablet extended release 24 hr 60 mg PO DAILY levothyroxine 50 mcg tablet 75 mcg PO DAILY metformin 1,000 mg tablet 1,000 mg PO BID metoprolol tartrate 25 mg tablet 25 mg PO BID alprazolam 0.25 mg tablet 0.25 mg PO DAILY PRN (Reason: Anxiety) nitroglycerin [Nitrostat] 0.4 mg tablet, sublingual 0.4 mg sublingual Q5M PRN (Reason: Chest Pain) Rx Instructions: do not exceed 3 doses per episode hydrocodone-acetaminophen 5-325 mg tablet 1 tab PO Q6H escitalopram oxalate 10 mg tablet 10 mg PO DAILY oxycodone 10 mg Tablet 10 mg PO Q4H PRN (Reason: Pain) Discharge Orders: Discharge ED (Routine); Ordered 07/21/24 Ordered By: Bertha Blas Referrals: Alexander Garcia DO [Primary Care Provider] - Print Language: Tristanian Coding Level of Care Code ED Facilities Clerk for [place] [place]
[2024-07-21] MEDS: sodium chloride 0.9% 1,000 ML 999 ML IV (13:08)
[2024-07-21 13:33] LABS: Basophils % 0.3 %; Eosinophils # 0.2 10^3/uL (0.0-0.8); Eosinophils % 1.3 %; Hematocrit 52.7 % (37-53); Lymphocytes % 17.9 %; Mean Corpuscular HGB Conc 32.6 g/dL (30-55); Mean Corpuscular Hemoglobin 33.7 pg (27-33); Mean Corpuscular Volume 103.3 fl (82-101); Mean Platelet Volume 11.3 fL (7.4-10.4); Monocytes # 0.7 10^3/uL (0.2-0.9); Monocytes % 6.4 %; Neutrophils # 8.34 10^3/uL (1.8-7.7); Neutrophils % 73.7 %; Nucleated Red Blood Cells % 0 %; Platelet Count 216 10^3/cmm (157-399); White Blood Count 11.32 10^3/uL (3.29-11.43)
[2024-07-21 13:37] VITALS: BP 168/98; PULSE 104; RESP 22
[2024-07-21] MEDS: morphine 4 mg/mL SDV 1 mL IVP (13:38)
[2024-07-21] MEDS: ondansetron 2 mg/ML SDV 2 mL 4 MG IVP (13:38)
[2024-07-21 13:50] LABS: Alanine Aminotransferase 27 U/L (0-41); Albumin Level 3.4 g/dL (3.5-5.2); Alkaline Phosphatase 112 U/L (40-130); Anion Gap 20.7 (5-19); Aspartate Amino Transferase 31 U/L (0-40); Blood Urea Nitrogen 28 mg/dL (8-23); Calcium 9.6 mg/dL (8.5-10.5); Carbon Dioxide 21 mmol/L (22-29); Chloride 98 mmol/L (98-107); Glucose 160 mg/dL (65-115); Osmolality Calculated 289 mOsm/kg (285-295); Potassium 4.7 mmol/L (3.5-5.1); Sodium 135 mmol/L (136-145); Total Bilirubin 1.7 mg/dL (0.15-1.2); Total Protein 7.4 g/dL (6.6-8.7)
--- NOTE | 2024-07-21 13:51 | ECG_ITS ---
[facility] 2024[facility]21 Pat Name: Florin Rouse Department: Room: Gender: Male Creative Services Writer: : 1935 Requested By: Bertha Blas Order Number: [id number] Reading MD: Measurements Intervals [place] Rate: 91 P: 0 ID: 0 QRS: 1 QRSD: 94 T: 142 QT: 333 QTc: 410 Interpretive Statements ATRIAL FIBRILLATION WITH ABERRANT CONDUCTION OR VENTRICULAR PREMATURE COMPLEXES ST DEVIATION AND MODERATE T-WAVE ABNORMALITY, CONSIDER LATERAL ISCHEMIA [-0.1+ mV T-WAVE IN I/aVL/V5/V6] [id number]
[2024-07-21 14:04] LABS: Protein Urine Neg (Negative); Specific Gravity, Urine 1.025 (1.005-1.030); Urine Appearance Clear (CLEAR); Urine Color Yellow (Yellow); pH Urine 5 (5-7)
[2024-07-21 14:05] LABS: Add Urine Microscopic? YES; Bilirubin Urine Neg (Negative); Blood Urine 3+ (Negative); Glucose Urine UA 4+ (Normal); Ketones Urine 2+ (Negative); Leukocyte Esterase Urine Negative (Negative); Nitrate Urine Negative (Negative); Urobilinogen Urine Norm (Negative)
[2024-07-21 14:08] LABS: Bacteria Urine None Seen /hpf; Hyaline Casts Urine 1.65 /lpf; Squamous Epithelial Cell Urine 0-5 /hpf (0-5); WBC Urine 0-5 /hpf (0-5)
[2024-07-21 14:09] LABS: Add Urine Culture? No
--- NOTE | 2024-07-21 14:11 | PC.PHAR ---
called [facility] pharmacy and spoke to pharmacist they said oxycodone 10mg 07/19/24 q4h #20 tabs for 4 day supply. pharmacist confirmed that both hydrocodones and oxycodone were picked up however the notes at the pharmacy states that the hydrocodones were not controlling the pain and that is why oxycodone was prescribed a few days later
[2024-07-21 14:15] VITALS: BP 144/78; PULSE 91; RESP 16; O2SAT 92
[2024-07-21 14:46] VITALS: BP 144/78; PULSE 95; RESP 16; O2SAT 94
== END 2024-07-21 14:30 | disposition home or self-care (01) ==
PROVIDERS: Emergency Provider Physician Assistant; PCP Electrodiagnostic Medicine
DX: S32.010A Wedge compression fracture of first lumbar vertebra, initial encounter for closed fracture (principal); Z79.84 Long term (current) use of oral hypoglycemic drugs; Z86.73 Personal history of transient ischemic attack (TIA), and cerebral infarction without residual deficits; I25.10 Atherosclerotic heart disease of native coronary artery without angina pectoris; I12.9 Hypertensive chronic kidney disease with stage 1 through stage 4 chronic kidney disease, or unspecified chronic kidney disease; N18.9 Chronic kidney disease, unspecified; Z87.891 Personal history of nicotine dependence; W19.XXXA Unspecified fall, initial encounter
CPT/HCPCS: 36415; 71045; 80053; 81001; 85025; 93005; 96374; 96375; 99285; J2270; J2405; J7030

== ENCOUNTER 2024-07-21 14:34 | Outpatient (CLI) | payer OTHER, SELFPAY ==
--- NOTE | 2024-07-21 14:49 | MR_ITS ---
WS: [id number] MRI LUMBAR SPINE NONCONTRAST TECHNIQUE: Sagittal T1, T2 and STIR imaging. Axial T1 and T2 imaging. CLINICAL INFORMATION: COMPRESSION FX OF VERTEBRAE COLUMN COMPARISON: None. FINDINGS: Acute compression fracture L1 vertebral body. Fracture cleft visualized in the inferior endplate with diffuse edema. Minimal retropulsion. Slight effacement of the ventral thecal sac. No high-grade central canal stenosis. Slight compression with edema inferior endplate L2 eccentric to the LEFT. L1-L2: Disc osteophyte complex eccentric to the LEFT. Mild LEFT foraminal narrowing. Mild facet arthropathy. L2-L3: Mild annular bulging. Mild central canal stenosis. Impingement on the LEFT greater than RIGHT subarticular recess. Mild facet arthropathy. Foramen are patent. L3-L4: Mild annular bulging. Mild central canal stenosis. Narrowing of the subarticular recess bilaterally. Mild facet arthropathy. Small annular fissure. Mild RIGHT foraminal narrowing. L4-L5: Slight anterolisthesis. Mild disc bulging. Impingement RIGHT subarticular recess and traversing RIGHT L5 nerve root. Moderate facet arthropathy. Mild RIGHT foraminal narrowing. L5-S1: Mild disc bulging. Spinal canal and foramen are patent. Moderate facet arthropathy. Visualized pelvic bony structures: Normal. Paravertebral soft tissues: Normal. Multicystic LEFT kidney. MR/MR lumbar spine wo con* [id number] IMPRESSION: 1. Acute compression fracture L1 vertebral body with diffuse edema. Fracture c left in the inferior endplate with minimal retropulsion. Loss of approximately 60% vertebral body height. 2. Slight compression with edema inferior endplate L2 eccentric to the LEFT.
== END 2024-07-21 14:35 | disposition home or self-care (01) ==
LOC: RAD 14:36
PROVIDERS: PCP Electrodiagnostic Medicine; Visit Provider Electrodiagnostic Medicine
DX: M48.56XA Collapsed vertebra, not elsewhere classified, lumbar region, initial encounter for fracture (principal); X58.XXXA Exposure to other specified factors, initial encounter; R93.7 Abnormal findings on diagnostic imaging of other parts of musculoskeletal system; M25.78 Osteophyte, vertebrae; M48.061 Spinal stenosis, lumbar region without neurogenic claudication; M47.896 Other spondylosis, lumbar region; M51.369 Other intervertebral disc degeneration, lumbar region without mention of lumbar back pain or lower extremity pain; M51.379 Other intervertebral disc degeneration, lumbosacral region without mention of lumbar back pain or lower extremity pain; M47.897 Other spondylosis, lumbosacral region; N28.1 Cyst of kidney, acquired
CPT/HCPCS: 72148

== ENCOUNTER → 2024-07-24 14:31 | Outpatient (BNVA) | payer OTHER, SELFPAY | PROVIDERS: PCP Electrodiagnostic Medicine; Visit Provider Orthopaedic Surgery | DX: S32.010A Wedge compression fracture of first lumbar vertebra, initial encounter for closed fracture (principal); X58.XXXA Exposure to other specified factors, initial encounter | CPT/HCPCS: 72100; 80053; 99204 ==

== ENCOUNTER 2024-07-28 11:22 | Outpatient (CLI) | payer OTHER, SELFPAY ==
[2024-07-28 12:06] LABS: Bacteria Urine None Seen /hpf; Hyaline Casts Urine 2.05 /lpf; RBC Urine 0-2 /hpf (0-2); Squamous Epithelial Cell Urine 0-5 /hpf (0-5); WBC Urine 0-5 /hpf (0-5)
[2024-07-28 12:31] LABS: Add Urine Microscopic? YES; Bilirubin Urine Neg (Negative); Blood Urine Trace (Negative); Glucose Urine UA 4+ (Normal); Ketones Urine 1+ (Negative); Leukocyte Esterase Urine Negative (Negative); Nitrate Urine Negative (Negative); Protein Urine Neg (Negative); Urine Appearance Clear (CLEAR); Urine Color Yellow (Yellow); Urobilinogen Urine Norm (Negative); pH Urine 5 (5-7)
[2024-07-28 12:32] LABS: Add Urine Culture? No; UA Slide Review UA Slide Review Perf
== END 2024-07-28 11:23 | disposition home or self-care (01) ==
LOC: LAB 11:23
PROVIDERS: PCP Electrodiagnostic Medicine; Visit Provider Orthopaedic Surgery
DX: S32.010A Wedge compression fracture of first lumbar vertebra, initial encounter for closed fracture (principal); X58.XXXA Exposure to other specified factors, initial encounter
CPT/HCPCS: 81001

== ENCOUNTER → 2024-07-30 12:06 | Day surgery (SDC) | payer OTHER, SELFPAY ==
[2024-07-30 10:03] VITALS: BMI 24.4
[2024-07-30 12:40] VITALS: BP 120/97; PULSE 134; RESP 18; TEMP 36.3; O2SAT 94
--- NOTE | 2024-07-30 13:10 | ECG_ITS ---
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 Measurements Intervals [place] Rate: 130 P: 0 [place]: 0 QRS: 28 QRSD: 91 T: 169 QT: 303 QTc: 446 Interpretive Statements ATRIAL FIBRILLATION WITH RAPID VENTRICULAR RESPONSE ST DEVIATION AND MODERATE T-WAVE ABNORMALITY, CONSIDER LATERAL ISCHEMIA [-0.1+ mV T-WAVE IN I/aVL/V5/V6] Compared to ECG 07/21/2024 13:56:10 Ventricular premature complex(es) no longer present Aberrant conduction of supraventricular beat(s) no longer present T-wave abnormality still present Possible ischemia still present Electronically Signed On 07-30-2024 16:04:07 CDT by Mynor Greenwood M.D. [id number]
[2024-07-30 13:11] LABS: Glucose Point of Care 195 mg/dL (70-110)
[2024-07-30] MEDS: sodium chloride 0.9% 1,000 ML 30 ML IV (13:32)
--- NOTE | 2024-07-30 13:37 | ANES.PREANE2 ---
Pre-Anesthetic Assessment Height/Weight: Height 6 ft Weight 180 lb Temp Pulse Resp BP Pulse Ox O2 Del Method 97.4 F L 134 H 18 120/97 94 Room Air 07/30/24 12:40 07/30/24 12:40 07/30/24 12:40 07/30/24 12:40 07/30/24 12:40 07/30/24 12:53 Preop Diagnosis: L1 traumatic osteoporotic compression fracture wedge Operation Date: 07/30/24 13:45 Proposed Procedures p Kyphoplasty(Not Applicable) - Tristan Pelayo DO Last intake: Intake Last Liquid Date 07/29/24 Last Liquid Time 14:00 Last Solid Date 07/29/24 Last Solid Time 16:00 Anesthetic Plan Other: Patient is currently in A-fib with RVR. Heart rate 140s?150s Patient denies any changes in symptoms besides mild increased SOB. This is confirmed on EKG today Patient follows with cardiology and on last visit he was stabilized on current medical regimen I suggested that patient go to the ER for rate control with follow-up of cardiology prior to surgery in the future Medications/Allergies Home Medications ?Medication ?Instructions ?Recorded ?Confirmed ?Last Taken ?Type lisinopril 2.5 mg tablet 2.5 mg PO DAILY 03/01/20 07/29/24 07/21/24 History simvastatin 10 mg tablet 20 mg PO DAILY 03/01/20 07/29/24 07/29/24 History insulin glargine 100 unit/mL 38 unit SUBCUT DAILY 10/18/20 07/29/24 07/20/24 History subcutaneous solution (Lantus U-100 Insulin) insulin regular human 100 unit/mL 20 unit SUBCUT BID 10/18/20 07/29/24 07/28/24 History injection solution (Novolin R Regular U-100 Insulin) isosorbide mononitrate 30 mg 60 mg PO DAILY 10/18/20 07/29/24 07/29/24 History tablet,extended release 24 hr levothyroxine 50 mcg tablet 75 mcg PO DAILY 10/18/20 07/29/24 07/29/24 History metformin 1,000 mg tablet 1,000 mg PO BID 10/18/20 07/29/24 07/21/24 History alprazolam 0.25 mg tablet 0.25 mg PO DAILY PRN Anxiety 12/15/20 07/29/2407/21/25 History nitroglycerin 0.4 mg sublingual 0.4 mg sublingual Q5M PRN Chest 12/15/20 07/29/24 Unknown History tablet (Nitrostat) Pain metoprolol tartrate 25 mg tablet 25 mg PO BID 12/31/20 07/29/24 07/29/24 History apixaban 2.5 mg tablet (Eliquis) 2.5 mg PO BID 07/21/24 07/29/24 07/22/24 History atorvastatin 40 mg tablet 40 mg PO QPM 07/21/24 07/29/24 07/28/24 History empagliflozin 25 mg tablet 25 mg PO QAM 07/21/24 07/29/24 07/27/24 History (Jardiance) escitalopram oxalate 10 mg tablet 10 mg PO DAILY 07/21/24 07/29/24 07/29/24 History hydrocodone 5 mg-acetaminophen 325 1 tab PO Q6H 07/21/24 07/29/24 07/29/24 History mg tablet pantoprazole 40 mg tablet,delayed 40 mg PO DAILY 07/21/24 07/29/24 07/29/24 History release oxycodone 10 mg tablet 10 mg PO Q4H Pain 7 days #42 tabs 07/24/24 07/29/24 07/30/24 Rx gabapentin 300 mg capsule 300 mg PO TID 07/29/24 07/29/24 07/29/24 History Allergies Allergy/AdvReac Type Severity Reaction Status Date / Time No Known Allergies Allergy Verified 07/24/24 14:34 Current Medications Generic Name Dose Route Start Last Admin Trade Name Timothyq PRN Reason Stop Dose Admin Sodium Chloride 1,000 mls @ 30 mls/hr 07/30/24 12:30 07/30/24 13:32 Sodium Chloride 0.9% IV 07/31/24 12:29 30 mls/hr .Q24H RAYNE Administration PFSH Anesthesia Medical History Anemia CKD (chronic kidney disease) CAD (coronary artery disease) Mixed hyperlipidemia Atrial fibrillation Hypertension CVA (cerebral vascular accident) Hypersomnia Surgical History History of PTCA History of colonoscopy Hx of CABG Family History Mother Clotting disorder Father CAD (coronary artery disease) Brother CAD (coronary artery disease) Sister Cancer Denies family history of Diabetes Dementia Chronic kidney disease (CKD) Suicide Anesthesia complication Bleeding disorder Lung disease Stroke Social History Smoking and tobacco/nicotine status: former use of tobacco/nicotine Quit status (tobacco/nicotine): has quit using Year quit tobacco: 1973 Former quit date comment: Hx of 0.5 PPD x 12 Years Second hand smoke exposure: No Alcohol intake: never Substance/Drug Use: never Lives independently: Yes Household members: spouse Marital status: service: Yes Current occupational status: retired Pets and animals: Yes Pets & animals: farm animals Do you think of yourself as: Straight/Heterosexual Current gender identity: Male Data Anesthesia Cardiac Studies: Echocardiogram Ultrasound 08/03/20
--- NOTE | 2024-07-30 13:54 | SUR.PREOP ---
13:45 PT EVALUATED BY ANESTHESIA( Dr MCCONNELL ) PT TO BE EVALUATED FOR RAPID HEART RATE.
--- NOTE | 2024-07-30 14:02 | SUR.PREOP ---
11:59 REPORT GIVEN TO ER NURSE PIERCE
--- NOTE | 2024-07-30 14:06 | SUR.PREOP ---
12:03 PT TRANSFERED TO ER VIA STRETCHER.
== END ==
PROVIDERS: PCP Electrodiagnostic Medicine; Visit Provider Orthopaedic Surgery
DX: S32.010A Wedge compression fracture of first lumbar vertebra, initial encounter for closed fracture (principal); I48.91 Unspecified atrial fibrillation; Z53.8 Procedure and treatment not carried out for other reasons; E78.2 Mixed hyperlipidemia; I25.10 Atherosclerotic heart disease of native coronary artery without angina pectoris; I12.9 Hypertensive chronic kidney disease with stage 1 through stage 4 chronic kidney disease, or unspecified chronic kidney disease; N18.9 Chronic kidney disease, unspecified; Z86.73 Personal history of transient ischemic attack (TIA), and cerebral infarction without residual deficits; Z87.891 Personal history of nicotine dependence; X58.XXXA Exposure to other specified factors, initial encounter; Z79.899 Other long term (current) drug therapy; Z79.4 Long term (current) use of insulin; Z79.84 Long term (current) use of oral hypoglycemic drugs; Z79.890 Hormone replacement therapy; Z79.01 Long term (current) use of anticoagulants
CPT/HCPCS: 36416; 82962; 93005; J1100; J2371; J2405; J2704; J3010; J3490; J7030; J9999

== ENCOUNTER 2024-07-30 14:11 | Observation (INO) | payer OTHER, SELFPAY ==
[2024-07-30] VITALS (109 sets, daily range): BP systolic 86–153; BP diastolic 39–107; PULSE 57–135; RESP 9–33; TEMP 36.7; O2SAT 84–98; BMI 24.4
--- NOTE | 2024-07-30 14:08 | ECG_ITS ---
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 Measurements Intervals [place] Rate: 137 P: 0 [place]: 0 QRS: 57 QRSD: 95 T: 217 QT: 297 QTc: 450 Interpretive Statements ATRIAL FIBRILLATION WITH RAPID VENTRICULAR RESPONSE NONSPECIFIC ST & T-WAVE ABNORMALITY Compared to ECG 07/30/2024 13:10:00 Possible ischemia no longer present T-wave abnormality still present Electronically Signed On 07-30-2024 15:56:54 CDT by Mynor Greenwood M.D. [email or web address] [id number]
--- NOTE | 2024-07-30 14:12 | XR_ITS ---
WS: [id number] Exam: XR chest 1V portable [id number] Date/Time of Exam: 07/30/2024 2:12 PM Reason For Exam: dyspnea/cough Comparison 07/21/2024. Lungs are fully inflated and clear. Normal cardiomediastinal silhouette. Bony structures are intact. Signs of previous CABG surgery. XR/XR chest 1V portable [id number] IMPRESSION: 1. No acute cardiopulmonary finding.
--- NOTE | 2024-07-30 14:13 | W.ED.GENADLT ---
HPI - General Adult General: Chief complaint: ER Hold Stated complaint: afib with rvr Time Seen by Provider: 07/30/24 14:12 History of Present Illness: 89-year-old male presents emergency room from surgery. He was in preop and he was noted to be in A-fib with RVR. He has a known history of atrial fibrillation. He is usually on metoprolol and Eliquis he stopped his Eliquis as part of the preop preparation he last took a dose of metoprolol last evening is not had any today. He is fairly asymptomatic now he has not felt short of breath he denies any chest discomfort or any other symptoms suggesting his heart rate was racing. Associated symptoms: Reports palpitations; Deny chest pain, dyspnea or rash Related Data Home Medications ?Medication ?Instructions ?Recorded ?Confirmed lisinopril 2.5 mg tablet 2.5 mg PO DAILY 03/01/20 07/30/24 insulin glargine 100 unit/mL 38 unit SUBCUT BEDTIME 10/18/20 07/30/24 subcutaneous solution (Lantus U-100 Insulin) insulin regular human 100 unit/mL 20 unit SUBCUT TID 10/18/20 07/30/24 injection solution (Novolin R Regular U-100 Insulin) isosorbide mononitrate 30 mg 60 mg PO DAILY 10/18/20 07/30/24 tablet,extended release 24 hr levothyroxine 50 mcg tablet 75 mcg PO DAILY 10/18/20 07/30/24 metformin 1,000 mg tablet 1,000 mg PO BID 10/18/20 07/30/24 alprazolam 0.25 mg tablet 0.25 mg PO DAILY PRN Anxiety 12/15/20 07/30/24 nitroglycerin 0.4 mg sublingual 0.4 mg sublingual Q5M PRN Chest 12/15/20 07/30/24 tablet (Nitrostat) Pain metoprolol tartrate 25 mg tablet 25 mg PO BID 12/31/20 07/30/24 apixaban 2.5 mg tablet (Eliquis) 2.5 mg PO BID 07/21/24 07/30/24 atorvastatin 40 mg tablet 40 mg PO QPM 07/21/24 07/30/24 empagliflozin 25 mg tablet 25 mg PO QAM 07/21/24 07/30/24 (Jardiance) escitalopram oxalate 10 mg tablet 10 mg PO DAILY 07/21/24 07/30/24 pantoprazole 40 mg tablet,delayed 40 mg PO DAILY 07/21/24 07/30/24 release gabapentin 300 mg capsule 300 mg PO TID 07/29/24 07/30/24 Previous Rx's ?Medication ?Instructions ?Recorded oxycodone 10 mg tablet 10 mg PO Q4H Pain 7 days #42 tabs 07/24/24 Allergies Allergy/AdvReac Type Severity Reaction Status Date / Time No Known Allergies Allergy Verified 07/24/24 14:34 Review of Systems Const: Denies: fever(s) or chills Card: Reports: palpitations and irregular heart rhythm; Denies: chest pain Resp: Denies: dyspnea GI: Denies: abdominal pain : Denies: dysuria, urinary frequency or urinary urgency Musc: Denies: neck pain or back pain Skin/Breast: Denies: rash PFSH ED PFSH: Medical History Anemia CKD (chronic kidney disease) CAD (coronary artery disease) Mixed hyperlipidemia Atrial fibrillation Hypertension CVA (cerebral vascular accident) Hypersomnia Surgical History History of PTCA History of colonoscopy Hx of CABG Family History Mother Clotting disorder Father CAD (coronary artery disease) Brother CAD (coronary artery disease) Sister Cancer Denies family history of Diabetes Dementia Chronic kidney disease (CKD) Suicide Anesthesia complication Bleeding disorder Lung disease Stroke Social History Smoking and tobacco/nicotine status: former use of tobacco/nicotine Quit status (tobacco/nicotine): has quit using Year quit tobacco: 1973 Former quit date comment: Hx of 0.5 PPD x 12 Years Second hand smoke exposure: No Alcohol intake: never Substance/Drug Use: never Lives independently: Yes Household members: spouse Marital status: service: Yes Current occupational status: retired Pets and animals: Yes Pets & animals: farm animals Do you think of yourself as: Straight/Heterosexual Current gender identity: Male Physical Exam Const: GENERAL APPEARANCE: cooperative ORIENTATION/CONSCIOUSNESS: Yes awake, Yes oriented to person, Yes oriented to place and Yes oriented to time HENMT: COMMON NORMALS: normocephalic, atraumatic and hearing grossly normal bilaterally HEAD & SCALP: normocephalic and atraumatic Resp: COMMON NORMALS: normal respiratory effort, No retractions, No use of accessory muscles and clear to auscultation bilaterally AUSCULTATION: clear to auscultation bilaterally Cardio: COMMON NORMALS: No murmurs present (Cardio) RATE: tachycardic RHYTHM: abnormal rhythm irregularly irregular GI: COMMON NORMALS: Soft to palpation and No hepatosplenomegaly present AUSCULTATION: Yes normoactive bowel sounds PALPATION: Yes Soft to palpation, No Tenderness to palpation present (GI), No Guarding due to palpation present (GI) and Yes No hepatosplenomegaly present Extremity: COMMON NORMALS: normal to inspection, capillary refill normal, no clubbing, cyanosis or edema, no calf tenderness and no pedal edema Neuro: SENSORIUM/ORIENTATION: Yes oriented to person, Yes oriented to place and Yes oriented to time Skin: COMMON NORMALS: no rashes or lesions noted GENERAL SKIN EXAM: no rashes or lesions noted Course Vital Signs: Vital signs: Vital Signs Temperature 98.0 F 07/31/24 07:25 Pulse Rate 69 07/31/24 07:25 Respiratory Rate 28 H 07/31/24 07:25 Blood Pressure 128/76 07/31/24 07:25 Pulse Oximetry 93 07/31/24 07:25 Oxygen Delivery Me thod Room Air 07/31/24 07:25 MDM - General Adult Medical Decision Making Initially given his 2 and half milligram dose of IV metoprolol and his regular oral metoprolol however did not respond well to this. Did not have significant rate control. He was started on Cardizem IV drip. Will admit for a fib with RVR. He is given IV fluids as well. Discussed with hospitalist orders written Medical Records I reviewed the patient's medical records. Lab Data I reviewed the patient's lab results. 07/31/24 04:45 07/31/24 04:45 Radiology Impressions Chest X-Ray 07/30/24 14:12 IMPRESSION: 1. No acute cardiopulmonary finding. Laboratory Results WBC 10.99 10^3/uL (3.29-11.43) 07/30/24 14:24 RBC 5.26 10^6/uL (3.85-5.65) 07/30/24 14:24 Hgb 17.50 g/dL (11.27-16.99) H 07/30/24 14:24 Hct 53.9 % (37-53) H 07/30/24 14:24 MCV 102.5 fl (82-101) H 07/30/24 14:24 MCH 33.3 pg (27-33) H 07/30/24 14:24 MCHC 32.5 g/dL (30-55) 07/30/24 14:24 RDW 12.8 % (12.1-15.1) 07/30/24 14:24 Plt Count 214 10^3/cmm (157-399) 07/30/24 14:24 MPV 12.1 fL (7.4-10.4) H 07/30/24 14:24 Neut % (Auto) 83.6 % 07/30/24 14:24 Lymph % (Auto) 9.8 % 07/30/24 14:24 Cocke % (Auto) 5.4 % 07/30/24 14:24 Eos % (Auto) 0.6 % 07/30/24 14:24 Baso % (Auto) 0.3 % 07/30/24 14:24 Neut # (Auto) 9.19 10^3/uL (1.8-7.7) H 07/30/24 14:24 Lymph # (Auto) 1.1 10^3/uL (0.8-4.8) 07/30/24 14:24 Cocke # (Auto) 0.6 10^3/uL (0.2-0.9) 07/30/24 14:24 Eos # (Auto) 0.1 10^3/uL (0.0-0.8) 07/30/24 14:24 Baso # (Auto) 0.0 10^3/uL (0.0-0.1) 07/30/24 14:24 Nucleated RBC % (auto) 0 % 07/30/24 14:24 Nucleated RBCs # 0.0 /100WBC 07/30/24 14:24 Sodium 136 mmol/L (136-145) 07/30/24 14:24 Potassium 5.4 mmol/L (3.5-5.1) H 07/30/24 14:24 Chloride 99 mmol/L (98-107) 07/30/24 14:24 Carbon Dioxide 18 mmol/L (22-29) L 07/30/24 14:24 Anion Gap 24.4 (5-19) H 07/30/24 14:24 BUN 31 mg/dL (8-23) H 07/30/24 14:24 Creatinine 1.2 mg/dL (0.7-1.2) 07/30/24 14:24 GFR Calculation Not Reportable 07/30/24 14:24 Glucose 203 mg/dL (65-115) H 07/30/24 14:24 Estimat Average Glucose 154 07/30/24 14:24 Hemoglobin A1c 7.0 % (4.0-6.0) H 07/30/24 14:24 Calculated Osmolality 294 mOsm/kg (285-295) 07/30/24 14:24 Calcium 10.4 mg/dL (8.5-10.5) 07/30/24 14:24 Total Bilirubin 1.8 mg/dL (0.15-1.2) H 07/30/24 14:24 AST 36 U/L (0-40) 07/30/24 14:24 ALT 33 U/L (0-41) 07/30/24 14:24 Alkaline Phosphatase 180 U/L (40-130) H 07/30/24 14:24 NT-Pro-B Natriuret Pep 781 pg/mL (0-450) H 07/30/24 14:24 Total Protein 7.5 g/dL (6.6-8.7) 07/30/24 14:24 Albumin 3.6 g/dL (3.5-5.2) 07/30/24 14:24 Globulin 3.9 g/dL (1.3-4.6) 07/30/24 14:24 TSH 2.37 uIU/mL (0.27-4.20) 07/30/24 14:24 All radiology interpretation(s) finalized by discharge Discharge Plan Discharge Patient Disposition: Admitted As Inpatient Admit Provider: Ricki Benavides Clinical Impression: Atrial fibrillation with rapid ventricular response, CKD (chronic kidney disease), Anemia Condition: Stable Coding Level of Care Code ED Site Operations Manager for Philip[facility] Corrine
[2024-07-30] MEDS: metoprolol tartrate 25 mg Tablet PO ×2 (14:28→20:14)
[2024-07-30] MEDS: metoprolol tartrate 1 mg/1 mL SDV 5 mL 2.5 MG IVP (14:29)
[2024-07-30 14:48] LABS: Basophils % 0.3 %; Eosinophils # 0.1 10^3/uL (0.0-0.8); Eosinophils % 0.6 %; Hematocrit 53.9 % (37-53); Lymphocytes # 1.1 10^3/uL (0.8-4.8); Lymphocytes % 9.8 %; Mean Corpuscular HGB Conc 32.5 g/dL (30-55); Mean Corpuscular Hemoglobin 33.3 pg (27-33); Mean Corpuscular Volume 102.5 fl (82-101); Mean Platelet Volume 12.1 fL (7.4-10.4); Monocytes # 0.6 10^3/uL (0.2-0.9); Monocytes % 5.4 %; Neutrophils # 9.19 10^3/uL (1.8-7.7); Neutrophils % 83.6 %; Nucleated Red Blood Cells % 0 %; Platelet Count 214 10^3/cmm (157-399); Red Blood Count 5.26 10^6/uL (3.85-5.65); Red Cell Distribution Width 12.8 % (12.1-15.1); White Blood Count 10.99 10^3/uL (3.29-11.43)
--- NOTE | 2024-07-30 15:03 | ECG_ITS ---
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 Measurements Intervals [place] Rate: 106 P: 0 [place]: 0 QRS: 53 QRSD: 97 T: 212 QT: 346 QTc: 461 Interpretive Statements ATRIAL FIBRILLATION WITH RAPID VENTRICULAR RESPONSE WITH ABERRANT CONDUCTION OR VENTRICULAR PREMATURE COMPLEXES NONSPECIFIC T-WAVE ABNORMALITY Compared to ECG 07/30/2024 14:08:23 Ventricular premature complex(es) now present Aberrant conduction of supraventricular beat(s) now present T-wave abnormality still present Electronically Signed On 07-30-2024 21:30:03 CDT by Mynor Greenwood M.D. [id number]
[2024-07-30 15:05] LABS: Alanine Aminotransferase 33 U/L (0-41); Albumin Level 3.6 g/dL (3.5-5.2); Alkaline Phosphatase 180 U/L (40-130); Aspartate Amino Transferase 36 U/L (0-40); Blood Urea Nitrogen 31 mg/dL (8-23); Calcium 10.4 mg/dL (8.5-10.5); Carbon Dioxide 18 mmol/L (22-29); Chloride 99 mmol/L (98-107); Globulin 3.9 g/dL (1.3-4.6); Glucose 203 mg/dL (65-115); Osmolality Calculated 294 mOsm/kg (285-295); Sodium 136 mmol/L (136-145); Total Bilirubin 1.8 mg/dL (0.15-1.2); Total Protein 7.5 g/dL (6.6-8.7)
[2024-07-30 15:10] LABS: Anion Gap 24.4 (5-19); Potassium 5.4 mmol/L (3.5-5.1)
--- NOTE | 2024-07-30 15:16 | PC.PHAR ---
pATIENT HAS TWO STATINSLISTED ON HIS MED REC AND [facility]. Patient isn't sure which one he takes . [facility] AT 2:40PM WAITING ON A RETURN FAX TO FINISH UPDATING RECORD.
[2024-07-30] MEDS: dilTIAZem 100 MG in sodium chloride 0.9% (add-van) 100 ML IV (15:24)
[2024-07-30] MEDS: sodium chloride 0.9% 1,000 ML 999 ML IV (15:28)
--- NOTE | 2024-07-30 15:52 | PM.HP ---
Providers/Chief Complaint Primary Care Provider: Alexander Garcia DO Chief Complaint: afib with rvr History of Present Illness Florin Rouse is a 89 year old male with a past medical history of atrial fibrillation on Eliquis, metoprolol, hypothyroidism, hypertension, type 2 diabetes, who presents [facility] due to palpitations. Recently patient suffered a back injury, he was lifting up a trailer onto his hitch, developed acute back pain found to have acute compression fracture of L1 vertebra, was supposed to have surgery today, he has been holding his Eliquis, but he thinks that he also held his metoprolol, and preop he was found to have A-fib with RVR, he was sent to the emergency room for evaluation. Currently he is asymptomatic, no chest pain, does have some palpitations, no lightheadedness, dizziness, shortness of breath, no fevers, no chills, with his back pain continues to have severe back pain, difficulty at times ambulating, he is on oxycodone, using the medication as prescribed, no urinary continence, no bowel incontinence, no saddle or perianal anesthesia, does report pain with ambulation, he was hoping to have back surgery today, as he is getting on Sunday, Review of Systems Const: Denies: fever(s) Card: Reports: palpitations; Denies: chest pain Resp: Denies: dyspnea GI: Denies: abdominal pain Medications/Allergies Home Medications ?Medication ?Instructions ?Recorded ?Confirmed ?Last Taken ?Type lisinopril 2.5 mg tablet 2.5 mg PO DAILY 03/01/20 07/29/24 07/21/24 History simvastatin 10 mg tablet 20 mg PO DAILY 03/01/20 07/29/24 07/29/24 History insulin glargine 100 unit/mL 38 unit SUBCUT DAILY 10/18/20 07/30/24 07/29/24 History subcutaneous solution (Lantus U-100 Insulin) insulin regular human 100 unit/mL 20 unit SUBCUT BID 10/18/20 07/30/24 07/29/24 History injection solution (Novolin R Regular U-100 Insulin) isosorbide mononitrate 30 mg 60 mg PO DAILY 10/18/20 07/29/24 07/29/24 History tablet,extended release 24 hr levothyroxine 50 mcg tablet 75 mcg PO DAILY 10/18/20 07/30/24 07/29/24 History metformin 1,000 mg tablet 1,000 mg PO BID 10/18/20 07/29/24 07/21/24 History alprazolam 0.25 mg tablet 0.25 mg PO DAILY PRN Anxiety 12/15/20 07/29/24 07/21/24 History nitroglycerin 0.4 mg sublingual 0.4 mg sublingual Q5M PRN Chest 12/15/20 07/30/24 Unknown History tablet (Nitrostat) Pain metoprolol tartrate 25 mg tablet 25 mg PO BID 12/31/20 07/29/24 07/29/24 History apixaban 2.5 mg tablet (Eliquis) 2.5 mg PO BID 07/21/24 07/30/24 07/30/24 History atorvastatin 40 mg tablet 40 mg PO QPM 07/21/24 07/29/24 07/28/24 History empagliflozin 25 mg tablet 25 mg PO QAM 07/21/24 07/30/24 07/29/24 History (Jardiance) escitalopram oxalate 10 mg tablet 10 mg PO DAILY 07/21/24 07/30/24 07/29/24 History pantoprazole 40 mg tablet,delayed 40 mg PO DAILY 07/21/24 07/30/24 07/29/24 History release oxycodone 10 mg tablet 10 mg PO Q4H Pain 7 days #42 tabs 07/24/24 07/30/24 07/30/24 Rx gabapentin 300 mg capsule 300 mg PO TID 07/29/24 07/30/24 07/29/24 History Allergies Allergy/AdvReac Type Severity Reaction Status Date / Time No Known Allergies Allergy Verified 07/24/24 14:34 PFSH Acute PFSH: Medical History Anemia CKD (chronic kidney disease) CAD (coronary artery disease) Mixed hyperlipidemia Atrial fibrillation Hypertension CVA (cerebral vascular accident) Hypersomnia Surgical History History of PTCA History of colonoscopy Hx of CABG Family History Mother Clotting disorder Father CAD (coronary artery disease) Brother CAD (coronary artery disease) Sister Cancer Denies family history of Diabetes Dementia Chronic kidney disease (CKD) Suicide Anesthesia complication Bleeding disorder Lung disease Stroke Social History Smoking and tobacco/nicotine status: former use of tobacco/nicotine Quit status (tobacco/nicotine): has quit using Year quit tobacco: 1973 Former quit date comment: Hx of 0.5 PPD x 12 Years Second hand smoke exposure: No Alcohol intake: never Substance/Drug Use: never Lives independently: Yes Household members: spouse Marital status: service: Yes Current occupational status: retired Pets and animals: Yes Pets & animals: farm animals Do you think of yourself as: Straight/Heterosexual Current gender identity: Male Vitals/I&O/Wt Last Vital Signs Temp 98.1 F 07/30/24 14:13 Pulse 131 H 07/30/24 15:26 Resp 28 H 07/30/24 15:26 BP 126/92 07/30/24 15:26 Pulse Ox 95 07/30/24 15:26 O2 Del Method Room Air 07/30/24 14:13 Weight last 48 hrs Weight 81.647 kg Physical Exam Const: COMMON NORMALS: no acute distress and patient oriented x3 HENMT: COMMON NORMALS: normocephalic HEAD & SCALP: normocephalic Eye: COMMON NORMALS: Equal, round and reactive pupils present Neck/C-Spine: COMMON NORMALS: no JVD Resp: COMMON NORMALS: normal respiratory effort, No retractions, No use of accessory muscles and clear to auscultation bilaterally AUSCULTATION: clear to auscultation bilaterally Cardio: COMMON NORMALS: regular rate, regular rhythm, S1 normal heart sound present and S2 normal heart sound present RATE: tachycardic RHYTHM: abnormal rhythm irregularly irregular HEART SOUNDS: S1 normal heart sound present and S2 normal heart sound present GI: COMMON NORMALS: Normal to inspection, nondistended, normoactive bowel sounds present, Soft to palpation and non-tender Extremity: COMMON NORMALS: no pedal edema Neuro: COMMON NORMALS: patient oriented x3, CN's II-XII intact bilaterally and moves all extremities Psych: COMMON NORMALS: mental status grossly normal Data 07/30/24 14:24 07/30/24 14:24 A&P Assessment and plan (1) Atrial fibrillation with rapid ventricular response: (2) CAD (coronary artery disease): Qualifiers: Coronary Disease-Associated Artery/Lesion type: deering artery [place] vs. transplanted heart: deering heart Associated angina: without angina Qualified Code(s): I25.10 - Atherosclerotic heart disease of deering coronary artery without angina pectoris (3) Mixed hyperlipidemia: (4) CKD (chronic kidney disease): Qualifiers: Chronic kidney disease stage: stage 3 (moderate) Chronic kidney disease stage 3 subtype: stage 3a (GFR 45-59) Qualified Code(s): N18.31 - Chronic kidney disease, stage 3a (5) Closed wedge compression fracture of L1 vertebra: (6) Intractable pain: Plan Atrial fibrillation with rapid ventricular response - Continue Cardizem drip - Continue Metroprolol 25 twice daily - Switch to therapeutic Lovenox, hold Eliquis as patient might require surgery next week based on clinical progress - Cardiac echo - Full code - Lovenox for DVT prophylaxis Acute compression fracture of L1 vertebra with diffuse edema, fracture cleft and inferior endplate with minimal retropulsion loss of approximately 60% of vertebral height - Also slight compression with edema inferior endplate L2 - TLSO brace - PT OT - Continue gabapentin - Oxycodone for pain control - Intractable pain Type 2 diabetes mellitus, decrease Lantus to 20 units daily, low-dose sliding scale PDMP PDMP Reviewed: Not Reviewed Attestations Medical Necessity Statement*: Patient requires hospitalization, outpatient with observation, for A-fib with RVR Diagnoses Atrial fibrillation with rapid ventricular response I48.91 Coronary artery disease involving deering coronary artery of deering heart without angina pectoris I25.10 Coronary Disease-Associated Artery/Lesion type: deering artery [place] vs. transplanted heart: deering heart Associated angina: without angina Mixed hyperlipidemia E78.2 Stage 3a chronic kidney disease N18.31 Chronic kidney disease stage: stage 3 (moderate) Chronic kidney disease stage 3 subtype: stage 3a (GFR 45-59) Closed wedge compression fracture of L1 vertebra S32.010A Intractable pain R52
[2024-07-30 16:15] LABS: NT Pro B Type Natriuretic Pept 781 pg/mL (0-450)
[2024-07-30 19:07] LABS: Glucose Point of Care 157 mg/dL (70-110)
[2024-07-30] MEDS: atorvastatin 40 mg Tablet PO (20:13)
[2024-07-30] MEDS: pantoprazole 40 mg SDV IVP (20:15)
[2024-07-30] MEDS: enoxaparin 80 mg/0.8 mL Syringe SUBCUT (20:15)
[2024-07-30] MEDS: insulin lispro 100 unit/1 mL SUBCUT (20:15)
[2024-07-30 20:41] LABS: Thyroid Stimulating Hormone 2.37 uIU/mL (0.27-4.20)
[2024-07-30 21:41] LABS: Estmated Average Glucose 154
[2024-07-30] MEDS: gabapentin 300 mg Capsule PO (21:45)
[2024-07-30 23:51] LABS: Glucose Point of Care 195 mg/dL (70-110)
[2024-07-31] VITALS (19 sets, daily range): BP systolic 90–138; BP diastolic 46–85; PULSE 58–75; RESP 15–30; TEMP 36.4–36.8; O2SAT 92–96
[2024-07-31 05:04] LABS: Basophils % 0.5 %; Eosinophils # 0.2 10^3/uL (0.0-0.8); Eosinophils % 2.7 %; Hematocrit 50.5 % (37-53); Mean Corpuscular HGB Conc 32.1 g/dL (30-55); Mean Corpuscular Hemoglobin 33.5 pg (27-33); Mean Corpuscular Volume 104.3 fl (82-101); Mean Platelet Volume 11.8 fL (7.4-10.4); Monocytes # 0.7 10^3/uL (0.2-0.9); Monocytes % 8.5 %; Neutrophils # 4.81 10^3/uL (1.8-7.7); Neutrophils % 62.2 %; Nucleated Red Blood Cells % 0 %; Platelet Count 186 10^3/cmm (157-399); Red Blood Count 4.84 10^6/uL (3.85-5.65); Red Cell Distribution Width 12.9 % (12.1-15.1); White Blood Count 7.74 10^3/uL (3.29-11.43)
[2024-07-31 05:16] LABS: Alanine Aminotransferase 26 U/L (0-41); Albumin Level 3.2 g/dL (3.5-5.2); Alkaline Phosphatase 151 U/L (40-130); Anion Gap 21.5 (5-19); Aspartate Amino Transferase 28 U/L (0-40); Blood Urea Nitrogen 27 mg/dL (8-23); Calcium 9.9 mg/dL (8.5-10.5); Carbon Dioxide 17 mmol/L (22-29); Chloride 103 mmol/L (98-107); Creatinine Clr Calc Pharmacy 50.6661; Globulin 3.9 g/dL (1.3-4.6); Glucose 179 mg/dL (65-115); Osmolality Calculated 294 mOsm/kg (285-295); Phosphorus 3.4 mg/dL (2.5-4.5); Potassium 4.5 mmol/L (3.5-5.1); Sodium 137 mmol/L (136-145); Total Bilirubin 1.7 mg/dL (0.15-1.2); Total Protein 7.1 g/dL (6.6-8.7)
[2024-07-31 06:18] LABS: Glucose Point of Care 163 mg/dL (70-110)
[2024-07-31] MEDS: gabapentin 300 mg Capsule PO ×3 (09:39→20:33)
[2024-07-31] MEDS: metoprolol tartrate 25 mg Tablet PO ×2 (09:39→17:58)
[2024-07-31] MEDS: escitalopram 10 mg Tablet PO (09:39)
[2024-07-31] MEDS: levothyroxine 75 mcg Tablet PO (09:39)
[2024-07-31] MEDS: insulin lispro 100 unit/1 mL SUBCUT ×3 (09:39→17:59)
[2024-07-31] MEDS: insulin glargine 100 units/1 mL 20 UNIT SUBCUT (09:40)
[2024-07-31] MEDS: dilTIAZem 30 mg Tablet PO ×2 (11:33→17:59)
[2024-07-31 11:47] LABS: Glucose Point of Care 218 mg/dL (70-110)
--- NOTE | 2024-07-31 12:34 | PC.OT ---
HOLD OT EVALUATION DUE TO SCHEDULED SURGERY TOMORROW; PER
--- NOTE | 2024-07-31 14:55 | P.PN_ITS ---
Subjective 2 Subjective: Patient was seen this morning, he is currently wearing back brace, currently in A-fib heart rates in the 60s, Vitals/I&O/Wt Last Vital Signs Temp 97.7 F 07/31/24 11:20 Pulse 67 07/31/24 11:20 Resp 24 H 07/31/24 11:20 BP 138/73 07/31/24 11:20 Pulse Ox 96 07/31/24 11:20 O2 Del Method Room Air 07/31/24 11:20 07/30/24 07/31/24 07/31/24 22:59 06:59 14:59 Intake Total 1260.917 / 1260.917 970.083 / 970.083 Output Total 300 / 300 Balance 1260.917 / 1260.917 670.083 / 670.083 Weight last 48 hrs Weight 76.521 kg Weight 81.647 kg Physical Exam 2 Const: COMMON NORMALS: no acute distress and patient oriented x3 Resp: COMMON NORMALS: normal respiratory effort, No retractions, No use of accessory muscles and clear to auscultation bilaterally AUSCULTATION: clear to auscultation bilaterally Cardio: COMMON NORMALS: regular rate, regular rhythm, S1 normal heart sound present and S2 normal heart sound present RATE: regular rate RHYTHM: r egular rhythm HEART SOUNDS: S1 normal heart sound present and S2 normal heart sound present GI: COMMON NORMALS: Normal to inspection, nondistended, normoactive bowel sounds present and non-tender Extremity: COMMON NORMALS: no pedal edema Neuro: COMMON NORMALS: patient oriented x3 Psych: COMMON NORMALS: mental status grossly normal Data 07/31/24 04:45 07/31/24 04:45 A&P Assessment and plan (1) Atrial fibrillation with rapid ventricular response: (2) CAD (coronary artery disease): Qualifiers: Coronary Disease-Associated Artery/Lesion type: [place] artery [place] vs. transplanted heart: [place] heart Associated angina: without angina Q ualified Code(s): I25.10 - Atherosclerotic heart disease of [place] coronary artery without angina pectoris (3) Mixed hyperlipidemia: (4) CKD (chronic kidney disease): Qualifiers: Chronic kidney disease stage: stage 3 (moderate) Chronic kidney disease stage 3 subtype: stage 3a (GFR 45-59) Qualified Code(s): N18.31 - Chronic kidney disease, stage 3a (5) Closed wedge compression fracture of L1 vertebra: (6) Intractable pain: Plan Atrial fibrillation with rapid ventricular response - Continue Cardizem drip - Continue Metroprolol 25 twice daily - Received 1 dose of therapeutic Lovenox - Cardiac echo - Full code - Lovenox for DVT prophylaxis Acute compression fracture of L1 vertebra with diffuse edema, fracture cleft and inferior endplate with minimal retropulsion loss of approximately 60% of vertebral height - Also slight compression with edema inferior endplate L2 - TLSO brace - PT OT - Continue gabapentin - Oxycodone for pain control - Intractable pain - N.p.o. midnight, plan on surgical invention tomorrow morning Type 2 diabetes mellitus, decrease Lantus to 20 units daily, low-dose sliding scale PDMP PDMP Reviewed: Not Reviewed Attestations 2 Medical Necessity Statement*: Patient requires hospitalization for atrial fibrillation Diagnoses Atrial fibrillation with rapid ventricular response I48.91 Coronary artery disease involving [place] coronary artery of [place] heart without angina pectoris I25.10 Coronary Disease-Associated Artery/Lesion type: [place] artery [place] vs. transplanted heart: [place] heart Associated angina: without angina Mixed hyperlipidemia E78.2 Stage 3a chronic kidney disease N18.31 Chronic kidney disease stage: stage 3 (moderate) Chronic kidney disease stage 3 subtype: stage 3a (GFR 45-59) Closed wedge compression fracture of L1 vertebra S32.010A Intractable pain R52
[2024-07-31 16:09] LABS: Glucose Point of Care 163 mg/dL (70-110)
[2024-07-31] MEDS: atorvastatin 40 mg Tablet PO (17:58)
[2024-07-31 20:33] LABS: Glucose Point of Care 246 mg/dL (70-110)
[2024-07-31] MEDS: polyethylene glycol 3350 Pkt 17 gm PO (20:33)
[2024-07-31] MEDS: pantoprazole 40 mg SDV IVP (20:33)
--- NOTE | 2024-07-31 22:37 | PC.NURSE ---
Patient heart rate running 57-65 Dr Collazo notified and gave orders to hold 30mg cardizem at 22:45.
[2024-08-01] VITALS (12 sets, daily range): BP systolic 107–156; BP diastolic 68–108; PULSE 68–133; RESP 12–21; TEMP 36.1–36.9; O2SAT 89–100
[2024-08-01 04:32] LABS: Basophils % 0.7 %; Eosinophils # 0.3 10^3/uL (0.0-0.8); Eosinophils % 5.7 %; Hematocrit 46.5 % (37-53); Lymphocytes # 1.9 10^3/uL (0.8-4.8); Lymphocytes % 35.6 %; Mean Corpuscular HGB Conc 33.3 g/dL (30-55); Mean Corpuscular Hemoglobin 33.4 pg (27-33); Mean Corpuscular Volume 100.2 fl (82-101); Mean Platelet Volume 12.1 fL (7.4-10.4); Monocytes # 0.6 10^3/uL (0.2-0.9); Monocytes % 11.4 %; Neutrophils # 2.51 10^3/uL (1.8-7.7); Neutrophils % 46.4 %; Nucleated Red Blood Cells % 0 %; Platelet Count 186 10^3/cmm (157-399); Red Blood Count 4.64 10^6/uL (3.85-5.65); Red Cell Distribution Width 12.9 % (12.1-15.1); White Blood Count 5.42 10^3/uL (3.29-11.43)
--- NOTE | 2024-08-01 04:34 | PC.NURSE ---
Patient heart rate was still running 50-60. Cardizem held per Dr Colalzo order.
[2024-08-01 05:00] LABS: Alanine Aminotransferase 25 U/L (0-41); Albumin Level 3.1 g/dL (3.5-5.2); Alkaline Phosphatase 148 U/L (40-130); Anion Gap 14.9 (5-19); Aspartate Amino Transferase 28 U/L (0-40); Blood Urea Nitrogen 27 mg/dL (8-23); Calcium 9.7 mg/dL (8.5-10.5); Carbon Dioxide 22 mmol/L (22-29); Chloride 103 mmol/L (98-107); Creatinine Clr Calc Pharmacy 55.9948; Globulin 3.8 g/dL (1.3-4.6); Glucose 222 mg/dL (65-115); Osmolality Calculated 294 mOsm/kg (285-295); Phosphorus 2.7 mg/dL (2.5-4.5); Potassium 3.9 mmol/L (3.5-5.1); Sodium 136 mmol/L (136-145); Total Bilirubin 1.1 mg/dL (0.15-1.2); Total Protein 6.9 g/dL (6.6-8.7)
--- NOTE | 2024-08-01 06:02 | PM.CONSULT ---
Providers/Reason For Consult Consulting Physician/Specialty*: Hospitalist Reason for Consult*: L1 compression fracture Attending Physician: Ricki Benavides MD Primary Care Provider: Alexander Garcia DO History of Present Illness History of Present Illness Florin Rouse is a 89 year old male sustained an L1 compression fracture was was to be treated on Sunday however in preop area he was having arrhythmia. At this point this is controlled. Will proceed with surgery today. Review of Systems Const: Denies: fever(s) Card: Reports: palpitations; Denies: chest pain Resp: Denies: dyspnea GI: Denies: abdominal pain : Denies: dysuria, urinary frequency or urinary urgency Musc: Denies: neck pain or back pain Skin/Breast: Denies: rash Medications/Allergies Home Medications ?Medication ?Instructions ?Recorded ?Confirmed ?Last Taken ?Type lisinopril 2.5 mg tablet 2.5 mg PO DAILY 03/01/20 07/30/24 07/29/24 History insulin glargine 100 unit/mL 38 unit SUBCUT BEDTIME 10/18/20 07/30/24 07/29/24 History subcutaneous solution (Lantus U-100 Insulin) insulin regular human 100 unit/mL 20 unit SUBCUT TID 10/18/20 07/30/24 07/29/24 History injection solution (Novolin R Regular U-100 Insulin) isosorbide mononitrate 30 mg 60 mg PO DAILY 10/18/20 07/30/24 07/29/24 History tablet,extended release 24 hr levothyroxine 50 mcg tablet 75 mcg PO DAILY 10/18/20 07/30/24 07/29/24 History metformin 1,000 mg tablet 1,000 mg PO BID 10/18/20 07/30/24 07/29/24 History alprazolam 0.25 mg tablet 0.25 mg PO DAILY PRN Anxiety 12/15/20 07/30/24 07/29/24 History nitroglycerin 0.4 mg sublingual 0.4 mg sublingual Q5M PRN Chest 12/15/20 07/30/24 Unknown History tablet (Nitrostat) Pain metoprolol tartrate 25 mg tablet 25 mg PO BID 12/31/20 07/30/24 07/29/24 History apixaban 2.5 mg tablet (Eliquis) 2.5 mg PO BID 07/21/24 07/30/24 07/30/24 History atorvastatin 40 mg tablet 40 mg PO QPM 07/21/24 07/30/24 07/29/24 History empagliflozin 25 mg tablet 25 mg PO QAM 07/21/24 07/30/24 07/29/24 History (Jardiance) escitalopram oxalate 10 mg tablet 10 mg PO DAILY 07/21/24 07/30/24 07/29/24 History pantoprazole 40 mg tablet,delayed 40 mg PO DAILY 07/21/24 07/30/24 07/29/24 History release oxycodone 10 mg tablet 10 mg PO Q4H Pain 7 days #42 tabs 07/24/24 07/30/24 07/30/24 Rx gabapentin 300 mg capsule 300 mg PO TID 07/29/24 07/30/24 07/29/24 History Allergies Allergy/AdvReac Type Severity Reaction Status Date / Time No Known Allergies Allergy Verified 07/24/24 14:34 Current Medications Generic Name Dose Route Start Last Admin Trade Name Timothyq PRN Reason Stop Dose Admin Atorvastatin Calcium 40 mg 07/30/24 19:32 07/31/24 17:58 Atorvastatin 40 Mg Tablet PO 40 mg QPM RAYNE Administration Diltiazem HCl 30 mg 07/31/24 10:45 08/01/24 04:34 Diltiazem 30 Mg Tablet PO Not Given Q6H RAYNE Escitalopram Oxalate 10 mg 07/31/24 09:00 07/31/24 09:39 Escitalopram 10 Mg Tablet PO 10 mg DAILY RAYNE Administration Gabapentin 300 mg 07/30/24 21:00 07/31/24 20:33 Gabapentin 300 Mg Capsule PO 300 mg TID RAYNE Administration Diltiazem HCl 100 mg/ Sodium 100 mls @ 0 mls/hr 07/30/24 15:15 07/31/24 08:00 Chloride IV Infused .Q0M RAYNE Titration Protocol Per Protocol Insulin Glargine 20 unit 07/31/24 09:00 07/31/24 09:40 Insulin Glargine 100 Units/1 Ml SUBCUT 20 unit DAILY RAYNE Administration Insulin Human Lispro 0 unit 07/30/24 19:32 07/31/24 17:59 Insulin Lispro 100 Unit/1 Ml SUBCUT 2 unit TIDWM RAYNE Administration Protocol Isosorbide Mononitrate 60 mg 07/31/24 09:00 07/31/24 10:41 Isosorbide Mononitrate Er 30 Mg Tablet PO Not Given DAILY RAYNE Levothyroxine Sodium 75 mcg 07/31/24 09:00 07/31/24 09:39 Levothyroxine 75 Mcg Tablet PO 75 mcg DAILY RAYNE Administration Lisinopril 2.5 mg 07/31/24 09:00 07/31/24 10:16 Lisinopril 2.5 Mg Tablet PO Not Given DAILY RAYNE Metoprolol Tartrate 25 mg 07/30/24 19:32 07/31/24 17:58 Metoprolol Tartrate 25 Mg Tablet PO 25 mg BID RAYNE Administration Pantoprazole Sodium 40 mg 07/30/24 20:00 07/31/24 20:33 Pantoprazole 40 Mg Sdv IVP 40 mg Q24H RAYNE Administration PFSH Acute PFSH: Medical History Anemia CKD (chronic kidney disease) CAD (coronary artery disease) Mixed hyperlipidemia Atrial fibrillation Hypertension CVA (cerebral vascular accident) Hypersomnia Surgical History History of PTCA History of colonoscopy Hx of CABG Family History Mother Clotting disorder Father CAD (coronary artery disease) Brother CAD (coronary artery disease) Sister Cancer Denies family history of Diabetes Dementia Chronic kidney disease (CKD) Suicide Anesthesia complication Bleeding disorder Lung disease Stroke Social History Smoking and tobacco/nicotine status: former use of tobacco/nicotine Quit status (tobacco/nicotine): has quit using Year quit tobacco: 1973 Former quit date comment: Hx of 0.5 PPD x 12 Years Second hand smoke exposure: No Alcohol intake: never Substance/Drug Use: never Lives independently: Yes Household members: spouse Marital status: service: Yes Current occupational status: retired Pets and animals: Yes Pets & animals: farm animals Do you think of yourself as: Straight/Heterosexual Current gender identity: Male Vitals/I&O/Wt Last Vital Signs Temp 98.4 F 08/01/24 04:00 Pulse 72 08/01/24 04:00 Resp 12 04/11/25 04:00 BP 113/68 08/01/24 04:00 Pulse Ox 98 08/01/24 04:00 O2 Del Method Room Air 08/01/24 04:00 07/31/24 07/31/24 08/01/24 14:59 22:59 06:59 Intake Total 970.083 / 970.083 540 / 1510.083 0 / 1510.083 Output Total 300 / 300 100 / 400 350 / 750 Balance 670.083 / 670.083 440 / 1110.083 -350 / 760.083 Weight last 48 hrs Weight 170 lb 11.2 oz Weight 168 lb 11.2 oz Weight 180 lb Physical Exam Narrative: Alert and oriented x 3 Head is normocephalic atraumatic Respirations are intact No evidence of any rashes or infection 5/5 strength in bilateral upper and lower extremities Sensation intact in all extremities Deep tendon reflexes 2 out of 4 bilateral upper and lower extremities Pain in spine with standing at the level of L1. Data 08/01/24 03:49 08/01/24 03:49 A&P Assessment and plan (1) Closed wedge compression fracture of L1 vertebra: Plan to do a kyphoplasty today at L1. I had an open and honest discussion with the patient about the risks, benefits and alternatives to both surgical and nonsurgical treatment. The patient verbalized understanding of the inherent unpredictability associated with surgery. Risk of surgery were discussed including, but not limited to, infection, bleeding, temporary and permanent nerve damage, continued pain, stiffness, incomplete healing, need for revision surgery, blood clot and other complications. The patient verbalized understanding that there is spine is elective in nature and if they find any of these risks to be unacceptable then they should choose not to have the surgery. The patient verbalized understanding of these risks and elected to proceed with the surgery. Qualifiers: Encounter type: subsequent encounter Fracture healing: with routine healing Qualified Code(s): S32.010D - Wedge compression fracture of first lumbar vertebra, subsequent encounter for fracture with routine healing PDMP PDMP Reviewed: Not Reviewed Coding Level of Care Code Acute Code for Chg Fwd Diagnoses Closed wedge compression fracture of L1 vertebra with routine healing, subsequent encounter S32.010D Encounter type: subsequent encounter Fracture healing: with routine healing
[2024-08-01 06:10] LABS: Glucose Point of Care 379 mg/dL (70-110)
[2024-08-01] MEDS: sodium chloride 0.9% 1,000 ML 30 ML IV (06:50)
[2024-08-01] MEDS: ceFAZolin 2,000 mg SDV 2000 MG IVP (06:57)
--- NOTE | 2024-08-01 07:07 | SC_ITS ---
WS: [id number] Exam: C-arm FL for Kyphoplasty Date/Time of Exam: 08/01/2024 7:07 AM Reason For Exam: intra op Intraoperative AP and lateral C-arm images at the thoracolumbar junction are submitted. Images were obtained for intraoperative visualization purposes.
--- NOTE | 2024-08-01 07:12 | ANES.PREANE2 ---
Pre-Anesthetic Assessment Height/Weight: Height 1.83 m Weight 77.428 kg Temp Pulse Resp BP Pulse Ox O2 Del Method 98.4 F 68 12 113/68 98 Room Air 08/01/24 04:00 08/01/24 06:00 08/01/24 04:00 08/01/24 04:00 08/01/24 04:00 08/01/24 04:00 Operation Date: 08/01/24 07:00 Proposed Procedures p Kyphoplasty(Not Applicable) - Tristan Pelayo DO Last intake: Intake Last Liquid Date 07/31/24 Last Liquid Time 20:30 Last Solid Date 07/31/24 Last Solid Time 19:00 Social No alcohol and No tobacco Exam alert, oriented x 3 and clear to auscultation bilaterally (Irreg rate/rhythm ) Airway Submandibular: within normal limits Cervical ROM: within normal limits Mallampati: Class II CV/HEM Atrial Fibrillation, Coronary Artery Disease (s/p CABG), Hypertension and Myocardial Infarction Metabolic Diabetes Mellitus, Hyperlipidemia and Thyroid Disease Anesthetic Plan ASA status: 3 Anesthesia: General Medications/Allergies Home Medications ?Medication ?Instructions ?Recorded ?Confirmed ?Last Taken ?Type lisinopril 2.5 mg tablet 2.5 mg PO DAILY 03/01/20 07/30/24 07/29/24 History insulin glargine 100 unit/mL 38 unit SUBCUT BEDTIME 10/18/20 07/30/24 07/29/24 History subcutaneous solution (Lantus U-100 Insulin) insulin regular human 100 unit/mL 20 unit SUBCUT TID 10/18/20 07/30/24 07/29/24 History injection solution (Novolin R Regular U-100 Insulin) isosorbide mononitrate 30 mg 60 mg PO DAILY 10/18/20 07/30/24 07/29/24 History tablet,extended release 24 hr levothyroxine 50 mcg tablet 75 mcg PO DAILY 10/18/20 07/30/24 07/29/24 History metformin 1,000 mg tablet 1,000 mg PO BID 10/18/20 07/30/24 07/29/24 History alprazolam 0.25 mg tablet 0.25 mg PO DAILY PRN Anxiety 12/15/20 07/30/24 07/29/24 History nitroglycerin 0.4 mg sublingual 0.4 mg sublingual Q5M PRN Chest 12/15/20 07/30/24 Unknown History tablet (Nitrostat) Pain metoprolol tartrate 25 mg tablet 25 mg PO BID 12/31/20 07/30/24 07/29/24 History apixaban 2.5 mg tablet (Eliquis) 2.5 mg PO BID 07/21/24 07/30/24 07/30/24 History atorvastatin 40 mg tablet 40 mg PO QPM 07/21/24 07/30/24 07/29/24 History empagliflozin 25 mg tablet 25 mg PO QAM 07/21/24 07/30/24 07/29/24 History (Jardiance) escitalopram oxalate 10 mg tablet 10 mg PO DAILY 07/21/24 07/30/24 07/29/24 History pantoprazole 40 mg tablet,delayed 40 mg PO DAILY 07/21/24 07/30/24 07/29/24 History release oxycodone 10 mg tablet 10 mg PO Q4H Pain 7 days #42 tabs 07/24/24 07/30/24 07/30/24 Rx gabapentin 300 mg capsule 300 mg PO TID 07/29/24 07/30/24 07/29/24 History Allergies Allergy/AdvReac Type Severity Reaction Status Date / Time No Known Allergies Allergy Verified 07/24/24 14:34 Current Medications Generic Name Dose Route Start Last Admin Trade Name Freq PRN Reason Stop Dose Admin Atorvastatin Calcium 40 mg 07/30/24 19:32 07/31/24 17:58 Atorvastatin 40 Mg Tablet PO 40 mg QPM RAYNE Administration Diltiazem HCl 30 mg 07/31/24 10:45 08/01/24 04:34 Diltiazem 30 Mg Tablet PO Not Given Q6H RAYNE Escitalopram Oxalate 10 mg 07/31/24 09:00 07/31/24 09:39 Escitalopram 10 Mg Tablet PO 10 mg DAILY RAYNE Administration Gabapentin 300 mg 07/30/24 21:00 07/31/24 20:33 Gabapentin 300 Mg Capsule PO 300 mg TID RAYNE Administration Diltiazem HCl 100 mg/ Sodium 100 mls @ 0 mls/hr 07/30/24 15:15 07/31/24 08:00 Chloride IV Infused .Q0M RAYNE Titration Protocol Per Protocol Insulin Glargine 20 unit 07/31/24 09:00 07/31/24 09:40 Insulin Glargine 100 Units/1 Ml SUBCUT 20 unit DAILY RAYNE Administration Insulin Human Lispro 0 unit 07/30/24 19:32 07/31/24 17:59 Insulin Lispro 100 Unit/1 Ml SUBCUT 2 unit TIDWM RAYNE Administration Protocol Isosorbide Mononitrate 60 mg 07/31/24 09:00 07/31/24 10:41 Isosorbide Mononitrate Er 30 Mg Tablet PO Not Given DAILY RAYNE Levothyroxine Sodium 75 mcg 07/31/24 09:00 07/31/24 09:39 Levothyroxine 75 Mcg Tablet PO 75 mcg DAILY RAYNE Administration Lisinopril 2.5 mg 07/31/24 09:00 07/31/24 10:16 Lisinopril 2.5 Mg Tablet PO Not Given DAILY RAYNE Metoprolol Tartrate 25 mg 07/30/24 19:32 07/31/24 17:58 Metoprolol Tartrate 25 Mg Tablet PO 25 mg BID RAYNE Administration Pantoprazole Sodium 40 mg 07/30/24 20:00 07/31/24 20:33 Pantoprazole 40 Mg Sdv IVP 40 mg Q24H ARYNE Administration PFSH Anesthesia Medical History Anemia CKD (chronic kidney disease) CAD (coronary artery disease) Mixed hyperlipidemia Atrial fibrillation Hypertension CVA (cerebral vascular accident) Hypersomnia Surgical History History of PTCA History of colonoscopy Hx of CABG Family History Mother Clotting disorder Father CAD (coronary artery disease) Brother CAD (coronary artery disease) Sister Cancer Denies family history of Diabetes Dementia Chronic kidney disease (CKD) Suicide Anesthesia complication Bleeding disorder Lung disease Stroke Social History Smoking and tobacco/nicotine status: former use of tobacco/nicotine Quit status (tobacco/nicotine): has quit using Year quit tobacco: 1973 Former quit date comment: Hx of 0.5 PPD x 12 Years Second hand smoke exposure: No Alcohol intake: never Substance/Drug Use: never Lives independently: Yes Household members: spouse Marital status: service: Yes Current occupational status: retired Pets and animals: Yes Pets & animals: farm animals Do you think of yourself as: Straight/Heterosexual Current gender identity: Male Data Anesthesia 08/01/24 03:49 08/01/24 03:49 Short CBC 07/30/24 07/31/24 08/01/24 Range/Units 14:24 04:45 03:49 WBC 10.99 7.74 5.42 (3.29-11.43) 10^3/uL Hgb 17.50 H 16.20 15.50 (11.27-16.99) g/dL Hct 53.9 H 50.5 46.5 (37-53) % MCV 102.5 H 104.3 H 100.2 (82-101) fl Plt Count 214 186 186 (157-399) 10^3/cmm Neut % (Auto) 83.6 62.2 46.4 % Neut # (Auto) 9.19 H 4.81 2.51 (1.8-7.7) 10^3/uL BMP 07/30/24 07/31/24 08/01/24 14:24 04:45 03:49 Sodium 136 137 136 Potassium 5.4 H 4.5 3.9 Chloride 99 103 103 Carbon Dioxide 18 L 17 L 22 BUN 31 H 27 H 27 H Creatinine 1.2 1.1 1.0 Glucose 203 H 179 H 222 H Calcium 10.4 9.9 9.7 Cardiac Enzymes 07/30/24 Range/Units 14:24 NT-Pro-B Natriuret Pep 781 H (0-450) pg/mL Liver Function 07/30/24 07/31/24 08/01/24 Range/Units 14:24 04:45 03:49 Total Bilirubin 1.8 H 1.7 H 1.1 (0.15-1.2) mg/dL AST 36 28 28 (0-40) U/L ALT 33 26 25 (0-41) U/L Alkaline Phosphatase 180 H 151 H 148 H (40-130) U/L Albumin 3.6 3.2 L 3.1 L (3.5-5.2) g/dL Cardiac Studies: Echocardiogram Ultrasound 08/03/20
[2024-08-01] MEDS: lidocaine-epi 1% 20 mL INJ INJECTION (07:22)
[2024-08-01] MEDS: iohexol 300 mg/mL 50 mL Btl XX (07:23)
--- NOTE | 2024-08-01 07:57 | P.OP_ITS ---
Operative Report Date of procedure: August 01, 2024 Pre-op diagnosis: L1 wedge osteoporotic traumatic compression fracture Post-op diagnosis: same Procedure done: L1 kyphoplasty Surgeon: Tristan Pelayo DO Estimated blood loss (mL): 5 Procedure: L1 kyphoplasty Patient was brought to the operative suite after undergoing anesthesia was placed in the prone position. All areas impingement well-padded. Patient's prepped and draped in sterile fashion. C-arm was brought in and biplanar fluo roscopy was used. L1 levels identified. Skin incisions made over the left pedicle. The awl was inserted and then passed into the body. Drill was passed into the vertebral body. Then the balloon was inserted inflated deflated. And then the cement was injected. Had gets. He did have some leakage out of the inferior endplate into the disc base but nothing into the posterior canal. AP lateral fluoroscopy ensured that cement is in good position. Wound was irrigated and closed with nylon suture. Sterile dressings were applied patient was transferred to the PACU in stable condition.
[2024-08-01] MEDS: docusate sodium 100 mg Capsule PO (08:37)
[2024-08-01] MEDS: metoprolol tartrate 25 mg Tablet PO (08:37)
[2024-08-01] MEDS: escitalopram 10 mg Tablet PO (08:37)
[2024-08-01] MEDS: levothyroxine 75 mcg Tablet PO (08:37)
[2024-08-01] MEDS: gabapentin 300 mg Capsule PO (08:37)
[2024-08-01] MEDS: insulin glargine 100 units/1 mL 20 UNIT SUBCUT (08:37)
[2024-08-01] MEDS: insulin lispro 100 unit/1 mL SUBCUT (08:40)
[2024-08-01 08:42] LABS: Glucose Point of Care 198 mg/dL (70-110)
[2024-08-01] MEDS: dilTIAZem 30 mg Tablet PO (10:58)
--- NOTE | 2024-08-01 10:58 | PM.DCS ---
Discharge Providers Date of Admission: 07/30/24 17:33 Date of Discharge: August 01, 2024 Attending Provider at Admission: Ricki Benavides MD Attending Provider at Discharge: Ricki Benavides MD Primary Care Provider: Alexander Garcia DO Diagnoses at Discharge Discharge Diagnosis (1) Closed wedge compression fracture of L1 vertebra: Status: Acute Qualifiers: Encounter type: subsequent encounter Fracture healing: with routine healing Qualified Code(s): S32.010D - Wedge compression fracture of first lumbar vertebra, subsequent encounter for fracture with routine healing Reason for Visit Reason for Visit: afib with rvr Hospital Course Hospital Course Florin Rouse is a 89 year old male with a past medical history of atrial fibrillation on Eliquis, metoprolol, hypothyroidism, hypertension, type 2 diabetes, who presents [facility] due to palpitations. Recently patient suffered a back injury, he was lifting up a trailer onto his hitch, developed acute back pain found to have acute compression fracture of L1 vertebra, was supposed to have surgery today, he has been holding his Eliquis, but he thinks that he also held his metoprolol, and preop he was found to have A-fib with RVR, he was sent to the emergency room for evaluation. Currently he is asymptomatic, no chest pain, does have some palpitations, no lightheadedness, dizziness, shortness of breath, no fevers, no chills, with his back pain continues to have severe back pain, difficulty at times ambulating, he is on oxycodone, using the medication as prescribed, no urinary continence, no bowel incontinence, no saddle or perianal anesthesia, does report pain with ambulation, he was hoping to have back surgery today, as he is getting on Sunday, Atrial fibrillation with rapid ventricular response, secondary to missing metoprolol, initially managed on Cardizem drip, transition to p.o. Cardizem, resumed patient's home Metroprolol 25 twice daily. Will be discharged on metoprolol 25 twice daily, Cardizem 60 twice daily, with close follow-up with primary care, follow-up with cardiology as outpatient. Dr. Pelayo would like patient's Eliquis to be held until 08/03/2024. Discussed with patient risks and benefits, shared decision making, he voices understanding, all questions answered, agreed to proceed. Discussed his risk of DVTs and pulm embolism, continued to be ambulatory after surgery, and resume his Eliquis on 08/03/2024. Acute compression fracture of L1 vertebra with diffuse edema, fracture cleft and inferior endplate with minimal retropulsion loss of approximately 60% of vertebral height - Also slight compression with edema inferior endplate L2 -Status post L1 kyphoplasty -tolerated procedure well, pt/ot, discharged on oxycodone prn for pain control Physical Exam Const: COMMON NORMALS: no acute distress and patient oriented x3 Resp: COMMON NORMALS: normal respiratory effort, No retractions, No use of accessory muscles and clear to auscultation bilaterally AUSCULTATION: clear to auscultation bilaterally Cardio: COMMON NORMALS: regular rate, regular rhythm, S1 normal heart sound present and S2 normal heart sound present RATE: regular rate RHYTHM: regular rhythm HEART SOUNDS: S1 normal heart sound present and S2 normal heart sound present GI: COMMON NORMALS: Normal to inspection, nondistended, normoactive bowel sounds present and non-tender Extremity: COMMON NORMALS: no pedal edema Neuro: COMMON NORMALS: patient oriented x3 Psych: COMMON NORMALS: mental status grossly normal Discharge Data Studies Completed and Pending Completed Studies During Hospitalization Category Date Time Status XR chest 1V portable [id number] Stat Exams 07/30/24 14:12 Completed Pending at discharge Category Date Time Status Complete Blood Count w/Auto AM LABS Lab 08/02/24 04:00 Ordered Comprehensive Metabolic Panel AM LABS Lab 08/02/24 04:00 Ordered Magnesium AM LABS Lab 08/02/24 04:00 Ordered Phosphorus AM LABS Lab 08/02/24 04:00 Ordered CV. echo complete* [id number] Stat Ultrasound 07/30/24 15:50 Taken Radiology Impressions Chest X-Ray 07/30/24 14:12 IMPRESSION: 1. No acute cardiopulmonary finding. Laboratory Results WBC 5.42 10^3/uL (3.29-11.43) 08/01/24 03:49 RBC 4.64 10^6/uL (3.85-5.65) 08/01/24 03:49 Hgb 15.50 g/dL (11.27-16.99) 08/01/24 03:49 Hct 46.5 % (37-53) 08/01/24 03:49 MCV 100.2 fl (82-101) 08/01/24 03:49 MCH 33.4 pg (27-33) H 08/01/24 03:49 MCHC 33.3 g/dL (30-55) 08/01/24 03:49 RDW 12.9 % (12.1-15.1) 08/01/24 03:49 Plt Count 186 10^3/cmm (157-399) 08/01/24 03:49 MPV 12.1 fL (7.4-10.4) H 08/01/24 03:49 Neut % (Auto) 46.4 % 08/01/24 03:49 Lymph % (Auto) 35.6 % 08/01/24 03:49 [place] % (Auto) 11.4 % 08/01/24 03:49 Eos % (Auto) 5.7 % 08/01/24 03:49 Baso % (Auto) 0.7 % 08/01/24 03:49 Neut # (Auto) 2.51 10^3/uL (1.8-7.7) 08/01/24 03:49 Lymph # (Auto) 1.9 10^3/uL (0.8-4.8) 08/01/24 03:49 [place] # (Auto) 0.6 10^3/uL (0.2-0.9) 08/01/24 03:49 Eos # (Auto) 0.3 10^3/uL (0.0-0.8) 08/01/24 03:49 Baso # (Auto) 0.0 10^3/uL (0.0-0.1) 08/01/24 03:49 Nucleated RBC % (auto) 0 % 08/01/24 03:49 Nucleated RBCs # 0.0 /100WBC 08/01/24 03:49 Sodium 136 mmol/L (136-145) 08/01/24 03:49 Potassium 3.9 mmol/L (3.5-5.1) 08/01/24 03:49 Chloride 103 mmol/L (98-107) 08/01/24 03:49 Carbon Dioxide 22 mmol/L (22-29) 08/01/24 03:49 Anion Gap 14.9 (5-19) 08/01/24 03:49 BUN 27 mg/dL (8-23) H 08/01/24 03:49 Creatinine 1.0 mg/dL (0.7-1.2) 08/01/24 03:49 GFR Calculation Not Reportable 08/01/24 03:49 Glucose 222 mg/dL (65-115) H 08/01/24 03:49 POC Glucose 198 mg/dL (70-110) H 08/01/24 08:40 Estimat Average Glucose 154 07/30/24 14:24 Hemoglobin A1c 7.0 % (4.0-6.0) H 07/30/24 14:24 Calculated Osmolality 294 mOsm/kg (285-295) 08/01/24 03:49 Calcium 9.7 mg/dL (8.5-10.5) 08/01/24 03:49 Phosphorus 2.7 mg/dL (2.5-4.5) 08/01/24 03:49 Magnesium 2.0 mg/dL (1.7-2.3) 08/01/24 03:49 Total Bilirubin 1.1 mg/dL (0.15-1.2) 08/01/24 03:49 AST 28 U/L (0-40) 08/01/24 03:49 ALT 25 U/L (0-41) 08/01/24 03:49 Alkaline Phosphatase 148 U/L (40-130) H 08/01/24 03:49 NT-Pro-B Natriuret Pep 781 pg/mL (0-450) H 07/30/24 14:24 Total Protein 6.9 g/dL (6.6-8.7) 08/01/24 03:49 Albumin 3.1 g/dL (3.5-5.2) L 08/01/24 03:49 Globulin 3.8 g/dL (1.3-4.6) 08/01/24 03:49 TSH 2.37 uIU/mL (0.27-4.20) 07/30/24 14:24 Vitals Last Vital Signs Temp 97.8 F 08/01/24 09:35 Pulse 96 08/01/24 08:41 Resp 21 H 08/01/24 08:41 BP 141/76 08/01/24 08:41 Pulse Ox 98 08/01/24 08:41 O2 Del Method Room Air 08/01/24 08:41 Discharge Plan Discharge Patient Disposition: Home Condition: Stable Prescriptions: New oxycodone 10 mg tablet 10 mg PO Q6H PRN (Reason: pain) 7 Days Qty: 28 0RF docusate sodium 100 mg Capsule 100 mg PO BID 30 Days Qty: 60 0RF diltiazem HCl [Cardizem LA] 120 mg tablet extended release 24 hr 60 mg PO BID 30 Days Qty: 30 0RF glucagon HCl [Glucagon (HCl) Emergency Kit] 1 mg recon soln 1 mg IM Q20M PRN (Reason: hypoglycemia) Qty: 1 0RF Rx Instructions: until target blood sugar attained Continued lisinopril 2.5 mg tablet 2.5 mg PO DAILY levothyroxine 50 mcg tablet 75 mcg PO DAILY metoprolol tartrate 25 mg tablet 25 mg PO BID nitroglycerin [Nitrostat] 0.4 mg tablet, sublingual 0.4 mg sublingual Q5M PRN (Reason: Chest Pain) Rx Instructions: do not exceed 3 doses per episode escitalopram oxalate 10 mg tablet 10 mg PO DAILY atorvastatin 40 mg Tablet 40 mg PO QPM pantoprazole 40 mg Tablet,Delayed Release (Dr/Ec) 40 mg PO DAILY Jardiance 25 mg Tablet 25 mg PO QAM gabapentin 300 mg capsule 300 mg PO TID Changed insulin glargine [Lantus U-100 Insulin] 100 unit/mL solution 30 unit SUBCUT DAILY Qty: 10 0RF Novolin R Regular U100 Insulin 100 unit/mL solution See Rx Instructions .ROUTE .COMPLEX Qty: 10 0RF Rx Instructions: Inject, subcut, 3 times daily, after meals, based on moderate insulin sliding scale provided Held isosorbide mononitrate 30 mg tablet extended release 24 hr 60 mg PO DAILY Hold Instructions: Resume on 08/04/24. Eliquis 2.5 mg Tablet 2.5 mg PO BID Hold Instructions: Resume on 08/03/24. Discontinued oxycodone 10 mg tablet 10 mg PO Q4H 7 Days Qty: 42 0RF alprazolam 0.25 mg tablet 0.25 mg PO DAILY PRN (Reason: Anxiety) Discharge Orders: Discharge Order (Routine); Ordered 08/01/24 Ordered By: Ricki Benavides Referrals: Tristan Pelayo DO [Physician] - 08/19/24 3:15 pm Alexander Garcia DO [Primary Care Provider] - (We have notified your physician's clinic of the need for a follow-up appointment to be scheduled. If you have not heard from them within the next 2 business days, please call them directly. ) Discharge Diet: Advance as tolerated Discharge Activity: Limit activity as instructed Patient Instructions: Diltiazem (By mouth), Laxative, Stool Softeners (By mouth), A-fib (Atrial Fibrillation) (DC), Fall Prevention for Older Adults (DC), Acute Wound Care (DC), Kyphoplasty (DC), Procedures for Compression Fractures of the Spine (DC), Opioid Safety, Post Anesthesia Care Activity Restrictions/Additional Instructions: -lantus 30 subcut, in the morning -Please monitor your blood sugars closely -Monitor your blood sugars 3 times daily as after meals -Please record your blood sugars, and a blood sugar log -For your NovoLog -Please inject blood sugar after meals based on sliding scale provided -Do not inject insulin if you do not eat as hypoglycemia kills -This is a NovoLog sliding scale -Insulin sliding ?fingerstick? Insulin ?141-180?4 units/sq 181-220?6 units/sq ?221-260?8 units/sq ?261-300 10 units/sq ?301-350?12 units/sq ?351-400 14 units/sq ?401-450?16 units/sq >450? 18 units/sq -If your blood sugar is greater than 500 go to the emergency room -If your blood sugar is less than 60 or at anytime you feel lightheaded or dizzy or diaphoretic or have chest palpitations check your blood sugar, and eat a hard candy or drink orange juice and go immediately to the emergency room -Remember hypoglycemia kills, so if his blood sugar is less than 60 we have to increase it by taking in a sugary meal such as a hard candy or orange juice and go to the emergency room -If you have any questions please call us where here to help - Please hold Eliquis until August 03 - I have discharged on metoprolol 25 twice daily - I have added on Cardizem 60 mg twice daily - If you feel lightheaded or dizzy, please call or go to the emergency room - Hold Imdur until at least Sunday - Check blood pressures twice daily - If systolic blood pressure is greater than 180 or diastolic greater than 90 then resume Imdur sooner - Please use oxycodone sparingly do not drive or operate heavy machinery or drink while taking medication Okay to restart alprazolam when you get home Thank you for [facility] for your care! The following is a list of instructions, from your provider, to follow upon your discharge to ensure you have the optimal recovery from your recent injury orsurgery. Follow-up care is a howard part of your treatment and safety. Be sure to make and go to all appointments, and call your doctor if you are having problems. If you do not already have a follow-up appointment made, call Dr. Pelayo office in the next 1-3 days to make follow up appointment for 2 weeks at [phone]. It is also a good idea to know your test results and keep a list of the medicines you take. Medications will be prescribed for you at your provider's discretion. These medications are to be used as instructed; if they are taken more often that prescribed they will not be refilled early and in most cases will not be refilled at all. > When a refill is needed,you should contact manuel graff 2-3 business days before your prescription runs out. Medications will NOT be refilled by environmental services worker providers after hours! > Many pain medications contain Tylenol (Acetaminophen). Do not consume more than 4,000 mg of Tylenol per day in total with any combination ofmedications. > Pain medications can cause constipation. Please use an over the counter stool softener as directed, while taking pain medications. Consulty our local pharmacist with questions or recommendations on stool softeners. If constipation persists, contact our office or your primary care provider. > While under our care,you are not to receive pain medications or other controlled substances from any other provider unless our office is notified and approves. Any attempts to do so will result in refusal to prescribe any further pain medications and possible dismissal from our practice. ? Your wound and/or dressing should remain clean and dry for 2 days after surgery. On postoperative day 2 (48 hours after your surgery) the dressing (if present) should be removed and it is okay to shower and get the incision wet. Pad dry afterwards. No further dressing should be required from that point on. Do not put any creams or ointments on theincision > It is normal for there to be a small amount of discharge (bloody or blood tinged) present from a surgical wound for the first 1-3days. > The wound should be examined twice a day for signs of infection. Mild redness or bruising is to be expected but indications that an infection maybe starting would include; An increase in redness, swelling, or discharge, a foul odor present around the incision, and/or a fever greater than 101 ?F ? Showering is permitted, however we ask that you do not take a bath, sit in a whirlpool / Jacuzzi, or go swimming for 1 month. For only the first 2 days after surgery, lt wilt be necessary for you to cover your wound/dressing with plastic and tape to keep it dry. ? Walking is essential for the healing process after surgery. We would like you to slowly advance your walking. This should be done on relatively flat clear ground (inside or out) or can be done on a treadmill. Remember this goal does not have to happen all at once, slowly increase your distance and duration. This can be broken into more more than one walk per day as tolerated. Patients who walk as directed after surgery rarely require Physical Therapy. In the unlikely event this issue arises your provider will direct hospital staff to make the appropriate arrangements. ? No lifting over 5 pounds {a gallon of milk) or bending/twisting until further notice. Each of these activities places an unnecessary amount of stress onto the body and can impede the delicate healing process. > Instead of bending at the waist, keep your back straight and bend at the knees. > Instead of twisting your torso, keep your back straight and turn your entire body with your feet. ? You may sleep in any position which makes you comfortable. Many patients find comfort sleeping in a reclining chair. It is not abnormal to have difficulty sleeping for the first several weeks following your surgery. We recommend trying Benadry! or Tylenol PM as directed to help with your sleeping difficulties. Both medications are over the counter and available withoutprescription. ? NO SMOKING!!! Smoking dramatically increases the probability of developing postoperative wound infections. ? Common complaints after lumbar and/or thoracic spine surgery include, but are not limited to: numbness and/or tingling in the legs, pain around the incision and surrounding tissues, muscle spasms, or stiffness of the middle to low back. Contact our office if these symptoms persist or if an acute change occurs. ? No driving for the first 3-5days, and not while taking narcotics until seen at your follow-up appointment and cleared. There are no restrictions for riding on short trips, however if you take a longer trip, arrangements should be made to make regular stops to get out of the vehicle and stretch . ? Swelling is an unfortunate event that will take place with any surgery and is the primary source of your postoperative discomfort. While walking and regular approved activities helps control inflammation, there are additional steps you can take to minimizeswelling. > Place ice over the surgical site and surrounding tissue for twenty minutes, followed by applying a low/medium heat (heating pad) for an additional twenty minutes every 1-2 hours as needed for painrelief. > You may use of over the counter anti-inflammatory medications (Ibuprofen, Motrin, Aleve, Advil, etc) as directed on the package label. These types of medicines wm significantly reduce the amount of discomfort you experience after surgery from swelling. It should be noted that if you have and allergy to any of these medications, or a history of ulcers or kidney disease you should consult you primary care provider prior to starting these medications. In the morning Discharge Attestations Time Spent in Discharge Care*: greater than 30 min Quality Metrics Clinical Quality Measures [ No reported AMI, CVA or VTE this stay] Coding Level of Care Code 17234 Total time (in minutes) for Discharge: 45 Diagnoses Closed wedge compression fracture of L1 vertebra with routine healing, subsequent encounter S32.010D Encounter type: subsequent encounter Fracture healing: with routine healing
--- NOTE | 2024-08-01 11:05 | PC.NURSE ---
Discharge Note Patient discharged to home via private vehicle accompanied by JESSIE Oscar. Discharge instructions reviewed with patient and/or account services representative. Mobile pharmacy medications and/or prescriptions provided. Belongings/home medications returned.
--- NOTE | 2024-08-01 11:34 | ANE.PACU2 ---
Inpatient post-anesthesia follow up: Vital signs: Temperature 97.8 F Pulse Rate 77 Respiratory Rate 21 Blood Pressure 126/76 Pulse Oximetry 96 Oxygen Delivery Me thod Room Air Oxygen Flow Rate Fraction of Inspir ed Oxygen Hydration adequate: Yes Nausea and vomiting: No Pain level: 2 Mental status: Baseline
== END 2024-08-01 11:02 | disposition home or self-care (01) ==
LOC: ER 14:16 → ER IP 17:33 → CSU 07-31 02:01
PROVIDERS: Orthopaedic Surgery; Admitting Provider Family Medicine; Emergency Provider Family Medicine; PCP Electrodiagnostic Medicine; Visit Provider Family Medicine
PROC: (CPT 22514; principal; 2024-08-01 07:00)
DX: R00.2 Palpitations (principal); S32.010D Wedge compression fracture of first lumbar vertebra, subsequent encounter for fracture with routine healing; X50.0XXD Overexertion from strenuous movement or load, subsequent encounter; I48.20 Chronic atrial fibrillation, unspecified; Z79.01 Long term (current) use of anticoagulants; E11.22 Type 2 diabetes mellitus with diabetic chronic kidney disease; I12.9 Hypertensive chronic kidney disease with stage 1 through stage 4 chronic kidney disease, or unspecified chronic kidney disease; N18.31 Chronic kidney disease, stage 3a; E03.9 Hypothyroidism, unspecified; I25.10 Atherosclerotic heart disease of native coronary artery without angina pectoris; Z95.1 Presence of aortocoronary bypass graft; I25.2 Old myocardial infarction; Z79.84 Long term (current) use of oral hypoglycemic drugs; Z79.4 Long term (current) use of insulin; K21.9 Gastro-esophageal reflux disease without esophagitis; Z86.73 Personal history of transient ischemic attack (TIA), and cerebral infarction without residual deficits; Z87.891 Personal history of nicotine dependence; E78.2 Mixed hyperlipidemia
CPT/HCPCS: 22514; 36415; 36416; 71045; 76000; 80053; 82962; 83036; 83735; 83880; 84100; 84443; 85025; 93005; 93306; 94664; 96365; 96366; 96372; 96375; 96376; 97110; 97116; 97161; 97165; 97530; 99285; G0378; J0690; J1650; J1815; J2470; J3490; J7030; J9999; L0637

== ENCOUNTER 2024-07-30 14:12 | Observation (INO) | payer OTHER, SELFPAY | END 2024-07-31 02:27 | disposition still patient (30) | LOC: ER 08-27 12:41 → ER IP 08-27 12:46 | PROVIDERS: Admitting Provider Family Medicine; Emergency Provider Family Medicine; PCP Electrodiagnostic Medicine; Referring Provider Orthopaedic Surgery; Visit Provider Family Medicine | DX: I48.20 Chronic atrial fibrillation, unspecified (principal); Z79.4 Long term (current) use of insulin; Z79.84 Long term (current) use of oral hypoglycemic drugs; K21.9 Gastro-esophageal reflux disease without esophagitis; I25.10 Atherosclerotic heart disease of native coronary artery without angina pectoris; E78.2 Mixed hyperlipidemia; Z86.73 Personal history of transient ischemic attack (TIA), and cerebral infarction without residual deficits; G47.10 Hypersomnia, unspecified; Z95.1 Presence of aortocoronary bypass graft; Z87.891 Personal history of nicotine dependence; Z82.49 Family history of ischemic heart disease and other diseases of the circulatory system; Z79.01 Long term (current) use of anticoagulants; E03.9 Hypothyroidism, unspecified; E11.22 Type 2 diabetes mellitus with diabetic chronic kidney disease; I12.9 Hypertensive chronic kidney disease with stage 1 through stage 4 chronic kidney disease, or unspecified chronic kidney disease; N18.9 Chronic kidney disease, unspecified; D63.1 Anemia in chronic kidney disease; S32.010D Wedge compression fracture of first lumbar vertebra, subsequent encounter for fracture with routine healing; X50.0XXD Overexertion from strenuous movement or load, subsequent encounter; Z53.8 Procedure and treatment not carried out for other reasons | CPT/HCPCS: G0378 ==

== ENCOUNTER 2024-08-19 16:20 | Inpatient (IN) | payer OTHER, MEDICARE, SELFPAY ==
[2024-08-19] VITALS (14 sets, daily range): BP systolic 93–177; BP diastolic 63–99; PULSE 72–95; RESP 16–17; TEMP 36.4; O2SAT 90–98; BMI 24.4
--- NOTE | 2024-08-19 16:34 | XRR_ITS ---
PROCEDURE INFORMATION: Exam: XR Chest Exam date and time: 08/19/2024 4:36 PM Age: 89 years old Clinical indication: Other: Weakness; Prior surgery; Surgery date: 6+ months; Surgery type: Open heart TECHNIQUE: Imaging protocol: Radiologic exam of the chest. Views: 1 view. COMPARISON: CR XR chest 1V portable [id number] 07/30/2024 2:16 PM FINDINGS: Lungs: Calcified granulomas again seen. No consolidation. Pleural spaces: Unremarkable. No pleural effusion. No pneumothorax. Heart/Mediastinum: Stable cardiomediastinal silhouette. Vasculature: Atherosclerotic aortic plaques. Mildly tortuous thoracic aorta. Bones/joints: Post median sternotomy and CABG. No acute osseous findings. XR/XR chest 1V portable [id number] IMPRESSION: No acute cardiopulmonary process.
--- NOTE | 2024-08-19 16:34 | ECG_ITS ---
[employer] Test Date: 2024-08-19 Pat Name: Florin Rouse Department: Room: Gender: Male Permit Review Assistant: : 1935 Requested By: Juany Velásquez Order Number: [id number] Reading MD: Measurements Intervals [place] Rate: 75 P: 0 CT: 0 QRS: 5 QRSD: 98 T: 132 QT: 383 QTc: 430 Interpretive Statements ATRIAL FIBRILLATION VOLTAGE CRITERIA FOR LVH [MEETS CRITERIA IN ONE OF: R(aVL), S(V1), R(V5), R(V5/V6)+S(V1)] MODERATE T-WAVE ABNORMALITY, CONSIDER LATERAL ISCHEMIA [-0.1+ mV T-WAVE IN I/aVL/V5/V6] [email or web address]
--- NOTE | 2024-08-19 16:35 | CTR_ITS ---
PROCEDURE INFORMATION: Exam: CT Head Without Contrast Exam date and time: 08/19/2024 4:54 PM Age: 89 years old Clinical indication: Weakness, extremity; Bilateral TECHNIQUE: Imaging protocol: Computed tomography of the head without contrast. Radiation optimization: All CT scans at this facility use at least one of these dose optimization techniques: automated exposure control; mA and/or kV adjustment per patient size (includes targeted exams where dose is matched to clinical indication); or iterative reconstruction. COMPARISON: PT PET skull to thigh INIT [id number] 08/28/2023 8:45 AM RADIATION DOSE METRICS: Total DLP (mGy-cm): 1152.22 FINDINGS: Brain: Periventricular and subcortical white matter hypodensities likely represent chronic small vessel ischemic changes. No acute intracranial hemorrhage. No mass effect or midline shift. Mccracken-white differentiation is maintained. Cerebral ventricles: Generalized cortical volume loss with prominence of the ventricles and cortical sulci. Paranasal sinuses: Visualized sinuses are unremarkable. No fluid levels. Mastoid air cells: Visualized mastoid air cells are well aerated. Bones: Unremarkable. No acute fracture. Soft tissues: Unremarkable. Vasculature: Vascular calcifications along the carotid siphons. CT/CT head wo con* [id number] IMPRESSION: No acute intracranial findings.
--- NOTE | 2024-08-19 16:36 | W.ED.WEAKNES ---
HPI - Weakness General: Chief complaint: Weakness Stated complaint: standing up he passes out sent by Dr. Pelayo Time Seen by Provider: 08/19/24 16:27 History of Present Illness: 89-year-old man with a history of chronic kidney disease, chronic anticoagulation on Eliquis, coronary artery disease, hyperlipidemia, A-fib, hypertension and a stroke who presents to the emergency room from Dr. Pelayo's orthopedic clinic with falls upon standing and lightheadedness. He was there in clinic for follow-up after surgery at 2 weeks ago on his back. says this started on Sunday. He actually fell 1 time on the carpet and did not hit his head. Since then he continues to become lightheaded and unsteady when he stands up and has had to be helped when he gets up. Dr. Pelayo's office had reported that his blood pressure was low when he stood and they sent him to the emergency room. Also says he was started on Augmentin for urinary tract infection. No fevers. No altered mental status. No focal motor deficits. No chest pain. No shortness of breath. No cough. No abdominal pain. His Eliquis is currently on hold after his back surgery. Review of Systems Narrative: Constitutional symptoms: Negative except as documented in HPI. Skin symptoms: Negative except as documented in HPI. Eye symptoms: Negative except as documented in HPI. ENMT symptoms: Negative except as documented in HPI. Respiratory symptoms: Negative except as documented in HPI. Cardiovascular symptoms: Negative except as documented in HPI. Gastrointestinal symptoms: Negative except as documented in HPI. Genitourinary symptoms: Negative except as documented in HPI. Musculoskeletal symptoms: Negative except as documented in HPI. Neurologic symptoms: Negative except as documented in HPI. Psychiatric symptoms: Negative except as documented in HPI. Endocrine symptoms: Negative except as documented in HPI. PFSH ED PFSH: Medical History Anemia CKD (chronic kidney disease) CAD (coronary artery disease) Mixed hyperlipidemia Atrial fibrillation Hypertension CVA (cerebral vascular accident) Hypersomnia Surgical History History of PTCA History of colonoscopy Hx of CABG Family History Mother Clotting disorder Father CAD (coronary artery disease) Brother CAD (coronary artery disease) Sister Cancer Denies family history of Diabetes Dementia Chronic kidney disease (CKD) Suicide Anesthesia complication Bleeding disorder Lung disease Stroke Social History Smoking and tobacco/nicotine status: never used tobacco/nicotine Quit status (tobacco/nicotine): has quit using Year quit tobacco: 1973 Former quit date comment: Hx of 0.5 PPD x 12 Years Second hand smoke exposure: No Alcohol intake: never Substance/Drug Use: never Lives independently: Yes Household members: spouse Marital status: service: Yes Current occupational status: retired Pets and animals: Yes Pets & animals: farm animals Do you think of yourself as: Straight/Heterosexual Current gender identity: Male Physical Exam Narrative: EXAM NARRATIVE: General: Alert, no acute distress. Skin: Warm, dry. Head: Normocephalic, atraumatic. Neck: Supple, trachea midline. Eye: Extraocular movements are intact. Ears, nose, mouth and throat: mucosa moist. Cardiovascular: Regular, Normal peripheral perfusion. Respiratory: Lungs are clear to auscultation, respirations are non-labored, breath sounds are equal, Symmetrical chest wall expansion. Gastrointestinal: Soft, Nontender, Non distended Musculoskeletal: Normal ROM, no deformity. Neurological: Alert and oriented, No focal neurological deficit observed. Psychiatric: Cooperative, appropriate mood & affect. Course Vital Signs: Vital signs: Vital Signs Temperature 97.6 F 08/19/24 16:29 Pulse Rate 73 08/19/24 20:08 Respiratory Rate 16 08/19/24 20:08 Blood Pressure 125/83 08/19/24 20:08 Pulse Oximetry 94 08/19/24 20:08 Oxygen Delivery Me thod Room Air 08/19/24 20:08 MDM - Weakness Medical Decision Making Medical decision making: Differential diagnosis for patient presenting with generalized weakness including but not limited to and based on the above HPI, review of systems and physical exam: Sepsis. Dehydration. Renal failure. Electrolyte abnormalities. Anemia. Congestive heart failure. Hypotension. Coronary syndrome. Hepatitis. Cirrhosis. Infections such as pneumonia, urinary tract infection, [place] illness, Cellulitis, Viral infections including influenza and Covid-19. Workup: labwork and lab/exam driven imaging ordered to evaluate, rule in and rule out above pathologies. EKG: Time 1644. Rate 75. Atrial fibrillation with controlled rate, No ST-T changes, no ectopy, This was reviewed and interpreted by myself the ER physician at 1648 CT head: No acute intracranial process. no intracranial hemorrhage, no evidence of infarct. no evidence of acute fracture.This was reviewed and interpreted by myself the ER physician. Chest x-ray: Senescent changes. No acute process. No infiltrate. No pneumothorax. This was reviewed and interpreted by myself the emergency room physician. I also reviewed the radiology report. Lab Review: Laboratory results were reviewed and interpreted by myself the emergency room physician. Lab work is pretty unremarkable. No leukocytosis. No anemia. Renal function is at or near his baseline may be slightly worse at 22 and 1.2. Urinalysis is negative for infection at this time. Flu COVID and RSV are negative. Her sugar is low and continues to be low. I reviewed the patient's medical record. Reexamination: Patient says he is feeling a little better after his first liter of fluid. He is had no altered mental status and no focal motor deficits. However after that liter I repeated orthostatics and he dropped his systolic blood pressure from 177 to 97. Also after eating he has been persistently hypoglycemic with sugars in the 50s to 70s. All this being given a feel like he needs to be watched overnight. Consultation: I spoke with Dr. Wilcox who is on-call for the hospitalist service who agrees to admission to observation. Assessment and plan: Hyperglycemia Dehydration Orthostatic hypotension Near syncope ?1.5 L normal saline bolus. Going to repeat p.o. carbohydrates and if it does not work we will give IV D10. -I discussed the patient with the hospitalist on-call who is admitting the patient. - Discussed findings and plan with patient. Answered any questions. - All laboratory values were reviewed and interpreted personally by myself, the ER physician - All imaging was reviewed and interpreted personally by myself, the ER physician. - Evaluation and treatment of this problem were appropriate in the emergency setting Lab Data 08/19/24 16:41 08/19/24 16:41 Radiology Impressions Chest X-Ray 08/19/24 16:34 IMPRESSION: No acute cardiopulmonary process. Head CT 08/19/24 16:35 IMPRESSION: No acute intracranial findings. Laboratory Results WBC 6.40 10^3/uL (3.29-11.43) 08/19/24 16:41 RBC 4.22 10^6/uL (3.85-5.65) 08/19/24 16:41 Hgb 14.20 g/dL (11.27-16.99) 08/19/24 16:41 Hct 43.2 % (37-53) 08/19/24 16:41 MCV 102.4 fl (82-101) H 08/19/24 16:41 MCH 33.6 pg (27-33) H 08/19/24 16:41 MCHC 32.9 g/dL (30-55) 08/19/24 16:41 RDW 13.6 % (12.1-15.1) 08/19/24 16:41 Plt Count 194 10^3/cmm (157-399) 08/19/24 16:41 MPV 11.7 fL (7.4-10.4) H 08/19/24 16:41 Neut % (Auto) 47.7 % 08/19/24 16:41 Lymph % (Auto) 39.1 % 08/19/24 16:41 [place] % (Auto) 10.2 % 08/19/24 16:41 Eos % (Auto) 2.3 % 08/19/24 16:41 Baso % (Auto) 0.5 % 08/19/24 16:41 Neut # (Auto) 3.06 10^3/uL (1.8-7.7) 08/19/24 16:41 Lymph # (Auto) 2.5 10^3/uL (0.8-4.8) 08/19/24 16:41 [place] # (Auto) 0.7 10^3/uL (0.2-0.9) 08/19/24 16:41 Eos # (Auto) 0.2 10^3/uL (0.0-0.8) 08/19/24 16:41 Baso # (Auto) 0.0 10^3/uL (0.0-0.1) 08/19/24 16:41 Nucleated RBC % (auto) 0 % 08/19/24 16:41 Nucleated RBCs # 0.0 /100WBC 08/19/24 16:41 Sodium 139 mmol/L (136-145) 08/19/24 16:41 Potassium 4.1 mmol/L (3.5-5.1) 08/19/24 16:41 Chloride 102 mmol/L (98-107) 08/19/24 16:41 Carbon Dioxide 24 mmol/L (22-29) 08/19/24 16:41 Anion Gap 17.1 (5-19) 08/19/24 16:41 BUN 22 mg/dL (8-23) 08/19/24 16:41 Creatinine 1.2 mg/dL (0.7-1.2) 08/19/24 16:41 GFR Calculation Not Reportable 08/19/24 16:41 Glucose 42 mg/dL (65-115) L 08/19/24 16:41 POC Glucose 58 mg/dL (70-110) L 08/19/24 18:01 Calculated Osmolality 288 mOsm/kg (285-295) 08/19/24 16:41 Lactic Acid 2.0 mmol/L (0.5-2.2) 08/19/24 16:46 Calcium 10.2 mg/dL (8.5-10.5) 08/19/24 16:41 Total Bilirubin 1.1 mg/dL (0.15-1.2) 08/19/24 16:41 AST 29 U/L (0-40) 08/19/24 16:41 ALT 21 U/L (0-41) 08/19/24 16:41 Alkaline Phosphatase 194 U/L (40-130) H 08/19/24 16:41 Troponin T Baseline 28 ng/L (0-15) H 08/19/24 16:41 Troponin T 120 Minute 23.92 ng/L (0-15) H 08/19/24 18:25 Delta Troponin T -4.08 ABS# (0-10) L 08/19/24 18:25 Total Protein 7.1 g/dL (6.6-8.7) 08/19/24 16:41 Albumin 3.6 g/dL (3.5-5.2) 08/19/24 16:41 Globulin 3.5 g/dL (1.3-4.6) 08/19/24 16:41 Urine Color Yellow (Yellow) 08/19/24 19:16 Urine Appearance Clear (CLEAR) 08/19/24 19:16 Urine pH 5.5 (5-7) 08/19/24 19:16 Ur Specific [place] 1.032 (1.005-1.030) H 08/19/24 19:16 Urine Protein Trace (Negative) A 08/19/24 19:16 Urine Glucose (UA) 3+ (Normal) H 08/19/24 19:16 Urine Ketones Trace (Negative) 08/19/24 19:16 Urine Blood Negative (Negative) 08/19/24 19:16 Urine Nitrate Negative (Negative) 08/19/24 19:16 Urine Bilirubin Negative (Negative) 08/19/24 19:16 Urine Urobilinogen 1.0 mg/dL (Negative) 08/19/24 19:16 Ur Leukocyte Esterase Negative (Negative) 08/19/24 19:16 Urine RBC 3-5 /hpf (0-2) 08/19/24 19:16 Urine WBC 0-5 /hpf (0-5) 08/19/24 19:16 Ur Squamous Epith Cells 0-5 /hpf (0-5) 08/19/24 19:16 Amorphous Sediment Not Reportable 08/19/24 19:16 Urine Bacteria None seen /hpf (NONE) 08/19/24 19:16 Hyaline Casts 1.21 /lpf 08/19/24 19:16 Influenza A (PCR) Negative (Negative) 08/19/24 16:50 Influenza Type B (PCR) Negative (Negative) 08/19/24 16:50 RSV (PCR) Negative (Negative) 08/19/24 16:50 SARS-CoV-2 (PCR) Negative (Negative) 08/19/24 16:50 All radiology interpretation(s) finalized by discharge Discharge Plan Discharge Patient Disposition: Placed in Observation Clinical Impression: Hypoglycemia, Orthostatic hypotension, Dehydration, Near syncope Discharge Diet: Advance as tolerated, Usual diet and As Directed Discharge Activity: Increase activity as tolerated Coding Level of Care Code ED Camp Counselor for Chg Fwd Related Data Home Medications ?Medication ?Instructions ?Recorded ?Confirmed lisinopril 2.5 mg tablet 2.5 mg PO DAILY 03/01/20 08/19/24 isosorbide mononitrate 30 mg 60 mg PO DAILY 10/18/20 08/19/24 tablet,extended release 24 hr Held on 08/01/24. Instructions: Resume on 08/04/24. levothyroxine 50 mcg tablet 75 mcg PO DAILY 10/18/20 08/19/24 nitroglycerin 0.4 mg sublingual 0.4 mg sublingual Q5M PRN Chest 12/15/20 08/19/24 tablet (Nitrostat) Pain metoprolol tartrate 25 mg tablet 25 mg PO BID 12/31/20 08/19/24 apixaban 2.5 mg tablet (Eliquis) 2.5 mg PO BID 07/21/24 08/19/24 Held on 08/01/24. Instructions: Resume on 08/03/24. atorvastatin 40 mg tablet 40 mg PO QPM 07/21/24 08/19/24 empagliflozin 25 mg tablet 25 mg PO QAM 07/21/24 08/19/24 (Jardiance) escitalopram oxalate 10 mg tablet 10 mg PO DAILY 07/21/24 08/19/24 pantoprazole 40 mg tablet,delayed 40 mg PO DAILY 07/21/24 08/19/24 release gabapentin 300 mg capsule 300 mg PO TID 07/29/24 08/19/24 amoxicillin 875 mg-potassium 1 tab PO BID 08/19/24 08/19/24 clavulanate 125 mg tablet tamsulosin 0.4 mg capsule 0.4 mg PO DAILY 08/19/24 08/19/24 Previous Rx's ?Medication ?Instructions ?Recorded diltiazem HCl 120 mg 60 mg (1/2 x 120 mg) PO BID 30 08/01/24 tablet,extended release 24 hr days #30 tabs (Cardizem LA) docusate sodium 100 mg capsule 100 mg PO BID 30 days #60 caps 08/01/24 glucagon HCl 1 mg solution for 1 mg IM Q20M PRN hypoglycemia #1 ea 08/01/24 injection (Glucagon (HCl) Emergency Kit) insulin glargine 100 unit/mL 30 unit (0.3 mL) SUBCUT DAILY #10 08/01/24 subcutaneous solution (Lantus mL U-100 Insulin) insulin regular human 100 unit/mL See Rx Instructions .Route 08/01/24 injection solution (Novolin R .COMPLEX #10 mL Regular U-100 Insulin) Allergies Allergy/AdvReac Type Severity Reaction Status Date / Time No Known Allergies Allergy Verified 07/24/24 14:34
[2024-08-19 16:59] LABS: Basophils % 0.5 %; Eosinophils # 0.2 10^3/uL (0.0-0.8); Eosinophils % 2.3 %; Hematocrit 43.2 % (37-53); Lymphocytes # 2.5 10^3/uL (0.8-4.8); Lymphocytes % 39.1 %; Mean Corpuscular HGB Conc 32.9 g/dL (30-55); Mean Corpuscular Hemoglobin 33.6 pg (27-33); Mean Corpuscular Volume 102.4 fl (82-101); Mean Platelet Volume 11.7 fL (7.4-10.4); Monocytes # 0.7 10^3/uL (0.2-0.9); Monocytes % 10.2 %; Neutrophils # 3.06 10^3/uL (1.8-7.7); Neutrophils % 47.7 %; Nucleated Red Blood Cells % 0 %; Platelet Count 194 10^3/cmm (157-399); Red Blood Count 4.22 10^6/uL (3.85-5.65); Red Cell Distribution Width 13.6 % (12.1-15.1)
[2024-08-19] MEDS: sodium chloride 0.9% 1,000 ML 999 ML IV ×2 (17:12→22:03)
[2024-08-19 17:23] LABS: Alanine Aminotransferase 21 U/L (0-41); Albumin Level 3.6 g/dL (3.5-5.2); Alkaline Phosphatase 194 U/L (40-130); Anion Gap 17.1 (5-19); Aspartate Amino Transferase 29 U/L (0-40); Blood Urea Nitrogen 22 mg/dL (8-23); Calcium 10.2 mg/dL (8.5-10.5); Carbon Dioxide 24 mmol/L (22-29); Chloride 102 mmol/L (98-107); Globulin 3.5 g/dL (1.3-4.6); Glucose 42 mg/dL (65-115); Osmolality Calculated 288 mOsm/kg (285-295); Potassium 4.1 mmol/L (3.5-5.1); Sodium 139 mmol/L (136-145); Total Bilirubin 1.1 mg/dL (0.15-1.2); Total Protein 7.1 g/dL (6.6-8.7)
[2024-08-19 17:37] LABS: Glucose Point of Care 65 mg/dL (70-110)
[2024-08-19 17:44] LABS: Troponin(5th) Baseline 28 ng/L (0-15)
[2024-08-19 17:47] LABS: Influenza A NEGATIVE (Negative); Influenza B NEGATIVE (Negative); Respiratory Syncytial Virus Ce NEGATIVE (Negative); SARS-CoV-2 PCR NEGATIVE (Negative)
[2024-08-19 18:15] LABS: Glucose Point of Care 58 mg/dL (70-110)
--- NOTE | 2024-08-19 18:34 | ECG_ITS ---
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
[2024-08-19 18:49] LABS: Troponin 5 2HR 23.92 ng/L (0-15)
[2024-08-19 18:50] LABS: Troponin 5 2HR Delta -4.08 ABS# (0-10)
--- NOTE | 2024-08-19 19:02 | PC.NURSE ---
pt report given to Cu[place] at 1900.
[2024-08-19 19:41] LABS: Bilirubin Urine Negative (Negative); Blood Urine Negative (Negative); Glucose Urine UA 3+ (Normal); Ketones Urine Trace (Negative); Leukocyte Esterase Urine Negative (Negative); Nitrate Urine Negative (Negative); Protein Urine Trace (Negative); Urine Appearance Clear (CLEAR); Urine Color Yellow (Yellow); pH Urine 5.5 (5-7)
[2024-08-19 19:47] LABS: Bacteria Urine None Seen /hpf; Hyaline Casts Urine 1.21 /lpf; Squamous Epithelial Cell Urine 0-5 /hpf (0-5); WBC Urine 0-5 /hpf (0-5)
[2024-08-19 19:48] LABS: Specific Gravity, Urine 1.032 (1.005-1.030)
[2024-08-19] MEDS: sodium chloride 0.9% 500 ML 999 ML IV (20:07)
--- NOTE | 2024-08-19 20:08 | PM.HP ---
Providers/Chief Complaint Admitting Physician: Sonny Wilcox MD Primary Care Provider: Alexander Garcia DO Chief Complaint: standing up he passes out sent by Dr. Pelayo History of Present Illness Florin Rouse is a 89 year old male with A-fib and coronary artery disease recently had kyphoplasty for L1 compression fracture on 08/01/2024. Patient states it went very well and he is no longer in pain. Patient has not been eating or drinking as much and came in with orthostatic hypotension as well as hypoglycemia. It looks like he did not check his blood sugar this morning before taking his 20 units of Novolin for breakfast. That is his usual dose as his early afternoon blood sugars tend to be the highest. It looks like in the evenings he has blood sugars running 50s to 60s. He takes 38 units of Semglee daily. The patient was seen by Dr. Guillory and given IV fluids as well as food but then the patient still had hypotension and hypoglycemia with orthostatic rise in heart rate so was referred for admission. Patient tells me he is on thyroid medication. TSH on 07/30/2024 was 2.37 Review of Systems Narrative: General 10 pounds weight loss in the last few months to 168 pounds in the last doctor's office check. No fevers chills Cardiovascular no chest pain or palpitations Respiratory no shortness of breath cough wheezing GI no nausea vomiting diarrhea he did have constipation postoperatively but that is resolved no complaints but recently treated for UTI with Augmentin Neuro no seizures strokes Hematologic no cancer Endocrine he has thyroid replacement and has had blood sugars with blood sugars up and down Medications/Allergies Home Medications ?Medication ?Instructions ?Recorded ?Confirmed ?Last Taken ?Type lisinopril 2.5 mg tablet 2.5 mg PO DAILY 03/01/20 08/19/24 08/19/24 History isosorbide mononitrate 30 mg 60 mg PO DAILY 10/18/20 08/19/24 08/19/24 History tablet,extended release 24 hr Held on 08/01/24. Instructions: Resume on 08/04/24. levothyroxine 50 mcg tablet 75 mcg PO DAILY 10/18/20 08/19/24 08/19/24 History nitroglycerin 0.4 mg sublingual 0.4 mg sublingual Q5M PRN Chest 12/15/20 08/19/24 Unknown History tablet (Nitrostat) Pain metoprolol tartrate 25 mg tablet 25 mg PO BID 12/31/20 08/19/24 08/19/24 History apixaban 2.5 mg tablet (Eliquis) 2.5 mg PO BID 07/21/24 08/19/24 08/19/24 History Held on 08/01/24. Instructions: Resume on 08/03/24. atorvastatin 40 mg tablet 40 mg PO QPM 07/21/24 08/19/24 08/18/24 History empagliflozin 25 mg tablet 25 mg PO QAM 07/21/24 08/19/24 08/19/24 History (Jardiance) escitalopram oxalate 10 mg tablet 10 mg PO DAILY 07/21/24 08/19/24 08/19/24 History pantoprazole 40 mg tablet,delayed 40 mg PO DAILY 07/21/24 08/19/24 08/19/24 History release gabapentin 300 mg capsule 300 mg PO TID 07/29/24 08/19/24 08/19/24 History diltiazem HCl 120 mg 60 mg (1/2 x 120 mg) PO BID 30 08/01/24 08/19/24 08/19/24 Rx tablet,extended release 24 hr days #30 tabs (Cardizem LA) docusate sodium 100 mg capsule 100 mg PO BID 30 days #60 caps 08/01/24 08/19/24 08/19/24 Rx glucagon HCl 1 mg solution for 1 mg IM Q20M PRN hypoglycemia #1 ea 08/01/24 08/19/24 Unknown Rx injection (Glucagon (HCl) Emergency Kit) insulin glargine 100 unit/mL 30 unit (0.3 mL) SUBCUT DAILY #10 08/01/24 08/19/24 08/19/24 Rx subcutaneous solution (Lantus mL U-100 Insulin) insulin regular human 100 unit/mL See Rx Instructions .Route 08/01/24 08/19/24 08/19/24 Rx injection solution (Novolin R .COMPLEX #10 mL Regular U-100 Insulin) amoxicillin 875 mg-potassium 1 tab PO BID 08/19/24 08/19/24 08/19/24 History clavulanate 125 mg tablet tamsulosin 0.4 mg capsule 0.4 mg PO DAILY 08/19/24 08/19/24 08/19/24 History Allergies Allergy/AdvReac Type Severity Reaction Status Date / Time No Known Allergies Allergy Verified 07/24/24 14:34 PFSH Acute PFSH: Medical History Anemia CKD (chronic kidney disease) CAD (coronary artery disease) Mixed hyperlipidemia Atrial fibrillation Hypertension CVA (cerebral vascular accident) Hypersomnia Surgical History History of PTCA History of colonoscopy Hx of CABG Family History Mother Clotting disorder Father CAD (coronary artery disease) Brother CAD (coronary artery disease) Sister Cancer Denies family history of Diabetes Dementia Chronic kidney disease (CKD) Suicide Anesthesia complication Bleeding disorder Lung disease Stroke Social History (Updated 08/19/24 @ 21:17 by Sonny Wilcox MD) Smoking and tobacco/nicotine status: former use of tobacco/nicotine Quit status (tobacco/nicotine): has quit using Year quit tobacco: 1973 Former quit date comment: Hx of 0.5 PPD x 12 Years Second hand smoke exposure: No Alcohol intake: never Substance/Drug Use: never Additional social history: He wants full code patient just to Carlee and grandson Isaias states it was 3 hours after his kyphoplasty. Isaias states he was intended to be the best man but was called after the fact of the wedding. 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 Pets and animals: Yes Pets & animals: farm animals Do you think of yourself as: Straight/Heterosexual Current gender identity: Male Vitals/I&O/Wt Last Vital Signs Temp 97.6 F 08/19/24 16:29 Pulse 77 08/19/24 19:55 Resp 16 08/19/24 19:04 BP 177/79 08/19/24 19:55 Pulse Ox 94 08/19/24 19:04 O2 Del Method Room Air 08/19/24 17:30 08/19/24 08/19/24 08/19/24 06:59 14:59 22:59 Intake Total 1000 / 1000 Balance 1000 / 1000 Weight last 48 hrs Weight 81.647 kg Physical Exam Narrative: General well-developed well-nourished tall male 6 foot tall thin with mild central obesity CV regular rate and irregular rhythm Lungs clear to auscultation bilaterally Abdomen positive bowel sounds soft nontender Calves no tenderness pretibial edema Neck no carotid bruits carotid upstrokes normal Data 08/19/24 16:41 08/19/24 16:41 Micro: Microbiology 08/19/24 16:46 Blood Culture - Preliminary Blood SPECIMEN COLLECTED 08/19/24 16:41 Blood Culture - Preliminary Blood SPECIMEN COLLECTED A&P Assessment and plan (1) Hypoglycemia: Start D5 containing fluid hold long-acting insulin and short acting. Will start sliding scale only for now (2) Near syncope: The patient received his third fluid bolus of 1 L saline (3) Dehydration: As above (4) Orthostatic hypotension: As above (5) CKD (chronic kidney disease): Creatinine runs 1 with minimal renal insufficiency. He is on Jardiance which may have contributed to his dehydration Qualifiers: Chronic kidney disease stage: stage 3 (moderate) Chronic kidney disease stage 3 subtype: stage 3a (GFR 45-59) Qualified Code(s): N18.31 - Chronic kidney disease, stage 3a (6) S/P kyphoplasty: Stable (7) Atrial fibrillation: Resume Eliquis and metoprolol Qualifiers: Atrial fibrillation type: paroxysmal Qualified Code(s): I48.0 - Paroxysmal atrial fibrillation (8) Coronary artery disease: Resume cardiac and lipid medications PDMP PDMP Reviewed: Not Reviewed Attestations Medical Necessity Statement*: Patient admitted for additional fluid bolus and D5 containing fluid to offset the insulin and hypoglycemia. Sounds like he is taking too much insulin. I have low suspicion for adrenal insufficiency at this time without hypothermia but if persists would recommend checking cortisol Coding Level of Care Code 89831 Diagnoses Hypoglycemia E16.2 Near syncope R55 Dehydration E86.0 Orthostatic hypotension I95.1 Stage 3a chronic kidney disease N18.31 Chronic kidney disease stage: stage 3 (moderate) Chronic kidney disease stage 3 subtype: stage 3a (GFR 45-59) S/P kyphoplasty Z98.890 Paroxysmal atrial fibrillation I48.0 Atrial fibrillation type: paroxysmal Coronary artery disease I25.10 Time Spent (min) 70
[2024-08-19 20:21] LABS: Glucose Point of Care 110 mg/dL (70-110)
--- NOTE | 2024-08-19 21:04 | PC.NURSE ---
Pt arrived on med/surg at this time.
[2024-08-19 22:33] LABS: Glucose Point of Care 131 mg/dL (70-110)
[2024-08-19] MEDS: D5-NS 0.45% + KCL 20 mEq 20 MEQ/1,000 ML BAG 75 MEQ IV (22:34)
--- NOTE | 2024-08-19 22:34 | ECG_ITS ---
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
[2024-08-19 23:37] LABS: Troponin 5 6HR 23.83 ng/L (0-15); Troponin 5 6HR Delta -4.17 ng/L (0-12)
[2024-08-20] VITALS (9 sets, daily range): BP systolic 63–165; BP diastolic 40–87; PULSE 67–117; RESP 16–18; TEMP 36.4–36.8; O2SAT 92–99
[2024-08-20 06:24] LABS: Glucose Point of Care 276 mg/dL (70-110)
[2024-08-20] MEDS: insulin lispro 100 unit/1 mL SUBCUT ×3 (09:00→20:34)
[2024-08-20] MEDS: pantoprazole DR 40 mg Tablet PO (09:01)
[2024-08-20] MEDS: docusate sodium 100 mg Capsule PO ×2 (09:01→17:51)
[2024-08-20] MEDS: lisinopril 2.5 mg Tablet PO (09:01)
[2024-08-20] MEDS: gabapentin 300 mg Capsule PO ×3 (09:01→20:34)
[2024-08-20] MEDS: metoprolol tartrate 25 mg Tablet PO (09:01)
[2024-08-20] MEDS: levothyroxine 75 mcg Tablet PO (09:01)
[2024-08-20] MEDS: isosorbide mononitrate ER 30 mg Tablet 60 MG PO (09:02)
[2024-08-20] MEDS: tamsulosin 0.4 mg Capsule PO (09:02)
[2024-08-20] MEDS: escitalopram 10 mg Tablet PO (09:02)
[2024-08-20] MEDS: apixaban 5 mg Tablet 2.5 MG PO ×2 (09:03→17:51)
[2024-08-20 11:13] LABS: Glucose Point of Care 235 mg/dL (70-110)
--- NOTE | 2024-08-20 14:23 | P.PN_ITS ---
Subjective 2 Subjective: Admitted overnight. H&P and labs appreciated. Patient seen with family at bedside. States he is feeling better. Able to stand up without dizziness. Denies any nausea, vomiting, headache. Appreciate blood sugars. Vitals/I&O/Wt Last Vital Signs Temp 98.2 F 08/20/24 11:20 Pulse 67 08/20/24 11:20 Resp 17 08/20/24 11:20 BP 132/69 08/20/24 11:20 Pulse Ox 95 08/20/24 11:20 O2 Del Method Room Air 08/20/24 11:20 08/19/24 08/20/24 08/20/24 22:59 06:59 14:59 Intake Total 1500 / 1500 1000 / 2500 480 / 480 Output Total 200 / 200 675 / 675 Balance 1500 / 1500 800 / 2300 -195 / -195 Weight last 48 hrs Weight 77.655 kg Weight 77.655 kg Weight 78.642 kg Weight 81.647 kg Physical Exam 2 Narrative: General well-developed well-nourished tall male 6 foot tall thin with mild central obesity CV regular rate and irregular rhythm Lungs clear to auscultation bilaterally Abdomen positive bowel sounds soft nontender Calves no tenderness pretibial edema Neck no carotid bruits carotid upstrokes normal Data 08/19/24 16:41 08/19/24 16:41 Micro: Microbiology 08/19/24 16:46 Blood Culture - Preliminary Blood SPECIMEN COLLECTED 08/19/24 16:41 Blood Culture - Preliminary Blood SPECIMEN COLLECTED A&P Assessment and plan (1) Hypoglycemia: Improving. Blood sugars elevated to more than 200. Discontinue IV fluids. Continue with insulin sliding scale. Continue to hold off on Appreciate recent A1c of 7. Lantus. (2) Near syncope: Most likely in setting of hypoglycemia and hypotension. Fall precautions. Appreciate CT head. Infectious source less likely. Blood culture taken on admission. Continue to follow. Continue to hold off on IV antibiotics. (3) Dehydration: As above (4) Orthostatic hypotension: Goal blood pressure less than 140/90 mmHg. Continue with orthostatic blood pressure checks. Continue to hold off on antihypertensive for now. Discontinue Imdur and lisinopril. Continue with home dose of metoprolol. (5) CKD (chronic kidney disease): Creatinine at baseline. Continue to monitor daily. Medical reconciliation done for nephrotoxic drugs. (6) S/P kyphoplasty: Stable. Continue with home pain medications. Physical therapy. (7) Atrial fibrillation: Resume Eliquis and metoprolol (8) Coronary artery disease: Resume cardiac and lipid medications Plan Full code Carb consistent diet Eliquis is sufficient for DVT prophylaxis Protonix for PUD prophylaxis. PDMP PDMP Reviewed: Not Reviewed Attestations 2 Medical Necessity Statement*: Requires further hospitalization for management of presyncope in setting of orthostatic hypotension, hypoglycemia in a patient who recently underwent kyphoplasty Diagnoses Hypoglycemia E16.2 Near syncope R55 Dehydration E86.0 Orthostatic hypotension I95.1 Stage 3a chronic kidney disease N18.31 Chronic kidney disease stage: stage 3 (moderate) Chronic kidney disease stage 3 subtype: stage 3a (GFR 45-59) S/P kyphoplasty Z98.890 Paroxysmal atrial fibrillation I48.0 Atrial fibrillation type: paroxysmal Coronary artery disease I25.10
[2024-08-20 16:43] LABS: Glucose Point of Care 103 mg/dL (70-110)
[2024-08-20] MEDS: atorvastatin 40 mg Tablet PO (17:51)
[2024-08-20 20:47] LABS: Glucose Point of Care 213 mg/dL (70-110)
[2024-08-20] MEDS: sodium chloride 0.9% 1,000 ML 999 ML IV (20:51)
[2024-08-21 01:18] VITALS: BP 146/77; PULSE 83; RESP 17; TEMP 36.9; O2SAT 96
[2024-08-21 04:00] VITALS: BP 130/72; BP 141/69; BP 150/74; PULSE 79; PULSE 82; PULSE 83; PULSE 86; RESP 17; TEMP 36.8; O2SAT 94
[2024-08-21 06:03] LABS: Basophils % 0.7 %; Eosinophils # 0.2 10^3/uL (0.0-0.8); Eosinophils % 3.7 %; Hematocrit 40.6 % (37-53); Lymphocytes # 1.8 10^3/uL (0.8-4.8); Lymphocytes % 32.5 %; Mean Corpuscular HGB Conc 32.8 g/dL (30-55); Mean Corpuscular Hemoglobin 33.2 pg (27-33); Mean Corpuscular Volume 101.2 fl (82-101); Mean Platelet Volume 11.5 fL (7.4-10.4); Monocytes # 0.6 10^3/uL (0.2-0.9); Monocytes % 11.9 %; Neutrophils # 2.74 10^3/uL (1.8-7.7); Neutrophils % 50.8 %; Nucleated Red Blood Cells % 0 %; Platelet Count 172 10^3/cmm (157-399); Red Blood Count 4.01 10^6/uL (3.85-5.65); Red Cell Distribution Width 13.5 % (12.1-15.1); White Blood Count 5.39 10^3/uL (3.29-11.43)
[2024-08-21 06:14] LABS: Glucose Point of Care 176 mg/dL (70-110)
[2024-08-21 06:26] LABS: Alanine Aminotransferase 17 U/L (0-41); Albumin Level 2.9 g/dL (3.5-5.2); Alkaline Phosphatase 171 U/L (40-130); Anion Gap 16.8 (5-19); Aspartate Amino Transferase 22 U/L (0-40); Blood Urea Nitrogen 12 mg/dL (8-23); Calcium 9.6 mg/dL (8.5-10.5); Carbon Dioxide 22 mmol/L (22-29); Chloride 107 mmol/L (98-107); Creatinine Clr Calc Pharmacy 50.9639; Globulin 3.3 g/dL (1.3-4.6); Glucose 192 mg/dL (65-115); Osmolality Calculated 297 mOsm/kg (285-295); Potassium 4.8 mmol/L (3.5-5.1); Sodium 141 mmol/L (136-145); Total Bilirubin 1.1 mg/dL (0.15-1.2); Total Protein 6.2 g/dL (6.6-8.7)
[2024-08-21 06:41] LABS: Folate Level 13.4 ng/mL (4.5-32.2)
[2024-08-21 06:42] LABS: Vitamin B12 622 pg/mL (232-1245)
[2024-08-21 08:00] VITALS: BP 156/71; PULSE 97; RESP 18; TEMP 36.6; O2SAT 93
[2024-08-21] MEDS: gabapentin 300 mg Capsule PO (09:12)
[2024-08-21] MEDS: pantoprazole DR 40 mg Tablet PO (09:12)
[2024-08-21] MEDS: metoprolol tartrate 25 mg Tablet PO (09:12)
[2024-08-21] MEDS: apixaban 5 mg Tablet 2.5 MG PO (09:12)
[2024-08-21] MEDS: tamsulosin 0.4 mg Capsule PO (09:12)
[2024-08-21] MEDS: levothyroxine 75 mcg Tablet PO (09:13)
[2024-08-21] MEDS: docusate sodium 100 mg Capsule PO (09:13)
[2024-08-21] MEDS: escitalopram 10 mg Tablet PO (09:13)
[2024-08-21] MEDS: insulin lispro 100 unit/1 mL SUBCUT ×2 (09:13→12:06)
[2024-08-21] MEDS: lisinopril 2.5 mg Tablet PO (09:33)
--- NOTE | 2024-08-21 09:44 | PM.DCS ---
Discharge Providers Date of Admission: 08/20/24 14:24 Date of Discharge: August 21, 2024 Attending Provider at Admission: Sonny Wilcox MD Attending Provider at Discharge: Bryn Galloway MD Primary Care Provider: Alexander Garcia DO Diagnoses at Discharge Discharge Diagnosis (1) Hypoglycemia: Status: Acute (2) Near syncope: Status: Acute (3) Dehydration: Status: Acute (4) Orthostatic hypotension: Status: Acute (5) CKD (chronic kidney disease): Status: Acute Qualifiers: Chronic kidney disease stage: stage 3 (moderate) Chronic kidney disease stage 3 subtype: stage 3a (GFR 45-59) Qualified Code(s): N18.31 - Chronic kidney disease, stage 3a (6) S/P kyphoplasty: Status: Acute (7) Atrial fibrillation: Status: Acute Qualifiers: Atrial fibrillation type: paroxysmal Qualified Code(s): I48.0 - Paroxysmal atrial fibrillation (8) Coronary artery disease: Status: Acute Reason for Visit Reason for Visit: standing up he passes out sent by Dr. Pelayo Brief History: History as per HPI: Florin Rouse is a 89 year old male with A-fib and coronary artery disease recently had kyphoplasty for L1 compression fracture on 08/01/2024. Patient states it went very well and he is no longer in pain. Patient has not been eating or drinking as much and came in with orthostatic hypotension as well as hypoglycemia. It looks like he did not check his blood sugar this morning before taking his 20 units of Novolin for breakfast. That is his usual dose as his early afternoon blood sugars tend to be the highest. It looks like in the evenings he has blood sugars running 50s to 60s. He takes 38 units of Semglee daily. The patient was seen by Dr. Guillory and given IV fluids as well as food but then the patient still had hypotension and hypoglycemia with orthostatic rise in heart rate so was referred for admission. Patient tells me he is on thyroid medication. TSH on 07/30/2024 was 2.37 Hospital Course Hospital Course Patient to the hospital further evaluation and management of presyncope in setting of orthostatic hypotension and hypoglycemia. For hypoglycemia his long-acting insulin was discontinued he was started on D10 fluid after which his blood sugar stabilized. His blood sugars have been stable for last 24 hours of IV fluids and he is being managed with low-dose insulin sliding scale. He has not had any further episodes of hypoglycemia. For hypertension his home antihypertensives were discontinued after which his orthostatic hypotension improved. Currently his blood pressures are improving and his home dose of lisinopril 2.5 mg have been restarted. Patient worked well with physical therapy. He has been discharged in hemodynamic stable condition with advised to take insulin as per sliding scale, hold off on Lantus. He is to take lisinopril 2.5 mg daily at home. He is to check his blood pressures and blood sugars daily at home and maintain a diary and follow-up with his primary care provider within 2 weeks for further adjustment of the medications as needed. Physical Exam Narrative: General well-developed well-nourished tall male 6 foot tall thin with mild central obesity CV regular rate and irregular rhythm Lungs clear to auscultation bilaterally Abdomen positive bowel sounds soft nontender Calves no tenderness pretibial edema Neck no carotid bruits carotid upstrokes normal Discharge Data Studies Completed and Pending Completed Studies During Hospitalization Category Date Time Status CT head wo con* [id number] Stat Cat Scan 08/19/24 16:35 Completed XR chest 1V portable [id number] Stat Exams 08/19/24 16:34 Completed Pending at discharge Category Date Time Status Blood Culture Stat Lab 08/19/24 16:46 Results Radiology Impressions Chest X-Ray 08/19/24 16:34 IMPRESSION: No acute cardiopulmonary process. Head CT 08/19/24 16:35 IMPRESSION: No acute intracranial findings. Laboratory Results WBC 5.39 10^3/uL (3.29-11.43) 08/21/24 05:37 RBC 4.01 10^6/uL (3.85-5.65) 08/21/24 05:37 Hgb 13.30 g/dL (11.27-16.99) 08/21/24 05:37 Hct 40.6 % (37-53) 08/21/24 05:37 MCV 101.2 fl (82-101) H 08/21/24 05:37 MCH 33.2 pg (27-33) H 08/21/24 05:37 MCHC 32.8 g/dL (30-55) 08/21/24 05:37 RDW 13.5 % (12.1-15.1) 08/21/24 05:37 Plt Count 172 10^3/cmm (157-399) 08/21/24 05:37 MPV 11.5 fL (7.4-10.4) H 08/21/24 05:37 Neut % (Auto) 50.8 % 08/21/24 05:37 Lymph % (Auto) 32.5 % 08/21/24 05:37 [place] % (Auto) 11.9 % 08/21/24 05:37 Eos % (Auto) 3.7 % 08/21/24 05:37 Baso % (Auto) 0.7 % 08/21/24 05:37 Neut # (Auto) 2.74 10^3/uL (1.8-7.7) 08/21/24 05:37 Lymph # (Auto) 1.8 10^3/uL (0.8-4.8) 08/21/24 05:37 [place] # (Auto) 0.6 10^3/uL (0.2-0.9) 08/21/24 05:37 Eos # (Auto) 0.2 10^3/uL (0.0-0.8) 08/21/24 05:37 Baso # (Auto) 0.0 10^3/uL (0.0-0.1) 08/21/24 05:37 Nucleated RBC % (auto) 0 % 08/21/24 05:37 Nucleated RBCs # 0.0 /100WBC 08/21/24 05:37 Sodium 141 mmol/L (136-145) 08/21/24 05:37 Potassium 4.8 mmol/L (3.5-5.1) 08/21/24 05:37 Chloride 107 mmol/L (98-107) 08/21/24 05:37 Carbon Dioxide 22 mmol/L (22-29) 08/21/24 05:37 Anion Gap 16.8 (5-19) 08/21/24 05:37 BUN 12 mg/dL (8-23) 08/21/24 05:37 Creatinine 1.1 mg/dL (0.7-1.2) 08/21/24 05:37 GFR Calculation Not Reportable 08/21/24 05:37 Glucose 192 mg/dL (65-115) H 08/21/24 05:37 POC Glucose 176 mg/dL (70-110) H 08/21/24 06:08 Calculated Osmolality 297 mOsm/kg (285-295) H 08/21/24 05:37 Lactic Acid 2.0 mmol/L (0.5-2.2) 08/19/24 16:46 Calcium 9.6 mg/dL (8.5-10.5) 08/21/24 05:37 Total Bilirubin 1.1 mg/dL (0.15-1.2) 08/21/24 05:37 AST 22 U/L (0-40) 08/21/24 05:37 ALT 17 U/L (0-41) 08/21/24 05:37 Alkaline Phosphatase 171 U/L (40-130) H 08/21/24 05:37 Troponin T Baseline 28 ng/L (0-15) H 08/19/24 16:41 Troponin T 120 Minute 23.92 ng/L (0-15) H 08/19/24 18:25 Delta Troponin T -4.08 ABS# (0-10) L 08/19/24 18:25 Troponin T Hi Sens 6Hr 23.83 ng/L (0-15) H 08/19/24 22:49 Troponin T Hi Sens 6Hr Delta -4.17 ng/L (0-12) L 08/19/24 22:49 Total Protein 6.2 g/dL (6.6-8.7) L 08/21/24 05:37 Albumin 2.9 g/dL (3.5-5.2) L 08/21/24 05:37 Globulin 3.3 g/dL (1.3-4.6) 08/21/24 05:37 Vitamin B12 622 pg/mL (232-1245) 08/21/24 05:37 Folate 13.4 ng/mL (4.5-32.2) 08/21/24 05:37 Urine Color Yellow (Yellow) 08/19/24 19:16 Urine Appearance Clear (CLEAR) 08/19/24 19:16 Urine pH 5.5 (5-7) 08/19/24 19:16 Ur Specific [place] 1.032 (1.005-1.030) H 08/19/24 19:16 Urine Protein Trace (Negative) A 08/19/24 19:16 Urine Glucose (UA) 3+ (Normal) H 08/19/24 19:16 Urine Ketones Trace (Negative) 08/19/24 19:16 Urine Blood Negative (Negative) 08/19/24 19:16 Urine Nitrate Negative (Negative) 08/19/24 19:16 Urine Bilirubin Negative (Negative) 08/19/24 19:16 Urine Urobilinogen 1.0 mg/dL (Negative) 08/19/24 19:16 Ur Leukocyte Esterase Negative (Negative) 08/19/24 19:16 Urine RBC 3-5 /hpf (0-2) 08/19/24 19:16 Urine WBC 0-5 /hpf (0-5) 08/19/24 19:16 Ur Squamous Epith Cells 0-5 /hpf (0-5) 08/19/24 19:16 Amorphous Sediment Not Reportable 08/19/24 19:16 Urine Bacteria None seen /hpf (NONE) 08/19/24 19:16 Hyaline Casts 1.21 /lpf 08/19/24 19:16 Influenza A (PCR) Negative (Negative) 08/19/24 16:50 Influenza Type B (PCR) Negative (Negative) 08/19/24 16:50 RSV (PCR) Negative (Negative) 08/19/24 16:50 SARS-CoV-2 (PCR) Negative (Negative) 08/19/24 16:50 Vitals Last Vital Signs Temp 97.9 F 08/21/24 08:00 Pulse 97 08/21/24 08:00 Resp 18 08/21/24 08:00 BP 156/71 08/21/24 08:00 Pulse Ox 93 08/21/24 08:00 O2 Del Method Room Air 08/21/24 08:00 Discharge Plan Discharge Patient Disposition: Home Condition: Stable Prescriptions: New insulin lispro [Humalog KwikPen Insulin] 100 unit/mL insulin pen See Protocol SUBCUT TID Qty: 15 0RF Protocol: Insulin Corrective High-Dose Regimen Condition: Fingerstick Blood Glucose Dose/Route: Insulin Units Condition: 141-180 mg/dl Dose/Route: 2 units/SQ Condition: 181-220 mg/dl Dose/Route: 4 units/SQ Condition: 221-260 mg/dl Dose/Route: 6 units/SQ Condition: 261-300 mg/dl Dose/Route: 8 units/SQ Condition: 301-350 mg/dl Dose/Route: 10 units/SQ Condition: 351-400 mg/dl Dose/Route: 12 units/SQ Condition: greater than 400 mg/dl Dose/Route: 14 units/SQ Rx Instructions: As per sliding scale Continued lisinopril 2.5 mg tablet 2.5 mg PO DAILY levothyroxine 50 mcg tablet 75 mcg PO DAILY metoprolol tartrate 25 mg tablet 25 mg PO BID nitroglycerin [Nitrostat] 0.4 mg tablet, sublingual 0.4 mg sublingual Q5M PRN (Reason: Chest Pain) Rx Instructions: do not exceed 3 doses per episode escitalopram oxalate 10 mg tablet 10 mg PO DAILY atorvastatin 40 mg Tablet 40 mg PO QPM pantoprazole 40 mg Tablet,Delayed Release (Dr/Ec) 40 mg PO DAILY Eliquis 2.5 mg Tablet 2.5 mg PO BID Jardiance 25 mg Tablet 25 mg PO QAM docusate sodium 100 mg Capsule 100 mg PO BID 30 Days Qty: 60 0RF glucagon HCl [Glucagon (HCl) Emergency Kit] 1 mg recon soln 1 mg IM Q20M PRN (Reason: hypoglycemia) Qty: 1 0RF Rx Instructions: until target blood sugar attained tamsulosin 0.4 mg Capsule 0.4 mg PO DAILY gabapentin 300 mg capsule 300 mg PO TID Discontinued isosorbide mononitrate 30 mg tablet extended release 24 hr 60 mg PO DAILY diltiazem HCl [Cardizem LA] 120 mg tablet extended release 24 hr 60 mg PO BID 30 Days Qty: 30 0RF insulin glargine [Lantus U-100 Insulin] 100 unit/mL solution 30 unit SUBCUT DAILY Qty: 10 0RF Novolin R Regular U100 Insulin 100 unit/mL solution See Rx Instructions .ROUTE .COMPLEX Qty: 10 0RF Rx Instructions: Inject, subcut, 3 times daily, after meals, based on moderate insulin sliding scale provided amoxicillin-pot clavulanate [Augmentin] 875-125 mg Tablet 1 tab PO BID Discharge Orders: Discharge Order (Routine); Ordered 08/21/24 Ordered By: Bryn Galloway Referrals: Alexander Garcia DO [Primary Care Provider, [facility]] - 08/26/24 9:00 am Discharge Diet: Advance as tolerated, Usual diet and As Directed Discharge Activity: Increase activity as tolerated Patient Instructions: Dehydration (GEN), Hypotension (GEN), Opioid Safety, Pain Management Activity Restrictions/Additional Instructions: Please check your blood sugars daily at home and maintain a blood sugar diary. Take insulin as per sliding scale provided to you. Please check your blood pressure daily at home maintain blood pressure diary. Goal blood pressure is between 100-140 systolics. Follow-up with your primary care provider within next 2 weeks for further adjustment of both antihypertensive and antidiabetic medications. If Fingerstick Blood Glucose, then Insulin Units; If 141-180 mg/dl, then 2 units/SQ; If 181-220 mg/dl, then 4 units/SQ; If 221-260 mg/dl, then 6 units/SQ; If 261-300 mg/dl, then 8 units/SQ; If 301-350 mg/dl, then 10 units/SQ; If 351-400 mg/dl, then 12 units/SQ; If greater than 400 mg/dl, then 14 units/SQ Discharge Attestations Time Spent in Discharge Care*: greater than 30 min Specific Discharge Activities: educating patient, educating and/or supporting family/caregiver, discussing with pcp/other providers, discussing with special education case manager/social workers/dc planners, documenting/other paperwork and evaluating patient/reviewing data Status at Discharge: Cognitive status at discharge: cognitively intact, Behavioral status at discharge: cooperative, Functional status at discharge: independent ambulation, Overall status at discharge: patient is back to baseline Quality Metrics Clinical Quality Measures [ No reported AMI, CVA or VTE this stay] Coding Level of Care Code 42065 Total time (in minutes) for Discharge: 65 Diagnoses Hypoglycemia E16.2 Near syncope R55 Dehydration E86.0 Orthostatic hypotension I95.1 Stage 3a chronic kidney disease N18.31 Chronic kidney disease stage: stage 3 (moderate) Chronic kidney disease stage 3 subtype: stage 3a (GFR 45-59) S/P kyphoplasty Z98.890 Paroxysmal atrial fibrillation I48.0 Atrial fibrillation type: paroxysmal Coronary artery disease I25.10
--- NOTE | 2024-08-21 10:01 | PC.CHAP ---
Pastoral Care Encounter/Spiritual Assessment Type of Contact [] Declined reed cleaner visit [] Patient/Family/Request visit [] Outpatient visit [] Follow-up visit [] Physician referral [] Code/Alert [x] Routine visit [] Staff referral [] Actively dying [] Patient sleeping [x] Family support [] [] Out of room [] Palliative care [] [] Receiving care in room [] Pre-surgical visit [] Trauma [] Long length of stay [] ICU visit [] Other: Relational/Emotional Strength [x] Patient feels connected with others/family/visitors/staff [] Distress [] Loneliness/isolation [] Abandonment Spirituality of Patient [x] Person of Aspen [] Attends Gnosticist of their Aspen [x] Believes in Prayer [] Reads Bible or Muslim materials [] There are Spiritual issues to be addressed Barrel Driller Interventions [x] Prayer [x] Active listening [x] Non-anxious presence [x] Spiritual/emotional support [] Crisis/trauma care [] Spiritual counseling [] Bereavement support [] Provided bereavement packet [] Provided Bible/devotional materials [] Provided toy/stuffed animal, coloring book to patient or family member [] Provided Communion [] Anointing/[place] [] Salvation [x] Completed spiritual assessment [] Other: Impact on Illness or Injury [] Angry [] Fearful [] Anxious [] Often cries [] Exhaustion [] Unable to work [] Unable to attend alevism [] Unable to walk/stand [] Unable to read [] Unable to drive [] Unable to eat/drink [] Unable to sleep [] Unable to be with family [] Patient intubated [] Other: Summary Time spent with patient 10 min
[2024-08-21 10:42] LABS: Glucose Point of Care 210 mg/dL (70-110)
[2024-08-21 12:00] VITALS: BP 104/63; BP 124/77; BP 129/79; PULSE 78; PULSE 80; PULSE 83; RESP 17; O2SAT 90
[2024-08-21 13:20] VITALS: BP 129/79; PULSE 80; O2SAT 95
== END 2024-08-21 13:22 | disposition intermediate care facility (04) | DRG 312 ==
LOC: ER 20:14 → MEDSURG 20:34
PROVIDERS: Admitting Provider Internal Medicine; Emergency Provider Emergency Medicine; PCP Electrodiagnostic Medicine; Visit Provider Student in an Organized Health Care Education/Training Program
DX: I95.1 Orthostatic hypotension (principal); E16.2 Hypoglycemia, unspecified; I12.9 Hypertensive chronic kidney disease with stage 1 through stage 4 chronic kidney disease, or unspecified chronic kidney disease; N18.31 Chronic kidney disease, stage 3a; E86.0 Dehydration; I48.0 Paroxysmal atrial fibrillation; I25.10 Atherosclerotic heart disease of native coronary artery without angina pectoris; E78.2 Mixed hyperlipidemia; R29.6 Repeated falls; D63.1 Anemia in chronic kidney disease; Z79.01 Long term (current) use of anticoagulants; Z95.1 Presence of aortocoronary bypass graft; Z86.16 Personal history of COVID-19; Z87.891 Personal history of nicotine dependence; Z98.890 Other specified postprocedural states
CPT/HCPCS: 36415; 36416; 70450; 71045; 80053; 81001; 82607; 82746; 82962; 83605; 84484; 85025; 87040; 87637; 93005; 96372; 97116; 97161; 99024; G0378; J1815; J7030; J7040; J9999

== ENCOUNTER → 2024-09-02 09:05 | Outpatient (BNVA) | payer OTHER, SELFPAY | PROVIDERS: PCP Electrodiagnostic Medicine; Visit Provider Internal Medicine Cardiovascular Disease | DX: I25.10 Atherosclerotic heart disease of native coronary artery without angina pectoris (principal); Z09 Encounter for follow-up examination after completed treatment for conditions other than malignant neoplasm; E78.5 Hyperlipidemia, unspecified; I48.0 Paroxysmal atrial fibrillation; Z79.01 Long term (current) use of anticoagulants; I08.1 Rheumatic disorders of both mitral and tricuspid valves; Z91.81 History of falling; Z86.73 Personal history of transient ischemic attack (TIA), and cerebral infarction without residual deficits; Z87.891 Personal history of nicotine dependence; Z95.5 Presence of coronary angioplasty implant and graft; Z95.1 Presence of aortocoronary bypass graft | CPT/HCPCS: 99214 ==

== ENCOUNTER → 2024-09-11 14:58 | Outpatient (BNVA) | payer OTHER, SELFPAY | PROVIDERS: PCP Electrodiagnostic Medicine; Visit Provider Orthopaedic Surgery | DX: Z98.890 Other specified postprocedural states (principal); M54.9 Dorsalgia, unspecified | CPT/HCPCS: 72100; 99213 ==

== ENCOUNTER 2024-09-18 09:03 | Outpatient (CLI) | payer OTHER, SELFPAY ==
--- NOTE | 2024-09-18 09:30 | MR_ITS ---
WS: [id number] MRI LUMBAR SPINE NONCONTRAST TECHNIQUE: Sagittal T1, T2 and STIR imaging. Axial T1 and T2 imaging. CLINICAL INFORMATION: back pain COMPARISON: MR 07/21/24 FINDINGS: Mild lumbar curve. Previously described compression fracture at L1 with kyphoplasty changes similar to previous. Minimal retropulsion. New compression fracture superior endplate L3 with edema and approximate 20% loss of vertebral body height. No retropulsion. L1-L2: Mild retropulsion posterior cortex L1 with narrowing of the LEFT greater than RIGHT subarticular recess. Moderate facet arthropathy. Mild LEFT foraminal narrowing. L2-L3: Mild disc bulging with mild central canal stenosis. Narrowing of the subarticular recess bilaterally. Mild LEFT greater than RIGHT foraminal narrowing. Mild facet arthropathy. L3-L4: Mild central canal stenosis. Narrowing of the subarticular recess bilaterally. Moderate facet arthropathy. Mild RIGHT foraminal narrowing. L4-L5: Mild annular bulging. Shallow central protrusion. Impingement on the traversing L5 nerve roots bilaterally. Moderate facet arthropathy. Mild RIGHT foraminal narrowing. L5-S1: Mild annular bulging. Moderate facet arthropathy. Foramen are patent. Impingement on the traversing RIGHT S1 nerve root. Visualized pelvic bony structures: Normal. Paravertebral soft tissues: Normal. LEFT renal cysts. MR/MR lumbar spine wo con* [id number] IMPRESSION: 1. New acute compression fracture superior end plate L3 with associated edema. No retropulsion. Loss of approximately 20% vertebral body height. 2. Previously described compression at L1 with kyphoplasty changes. 3. Mild compression superior end plate T10 seen on the pecan sheller and localizer teagan ging with suggestion of trace edema. This can be further evaluated with thoraci c spine MRI.
== END 2024-09-18 09:04 | disposition home or self-care (01) ==
PROVIDERS: PCP Electrodiagnostic Medicine; Visit Provider Orthopaedic Surgery
DX: M54.9 Dorsalgia, unspecified (principal); M48.56XA Collapsed vertebra, not elsewhere classified, lumbar region, initial encounter for fracture
CPT/HCPCS: 72148

== ENCOUNTER 2024-10-03 08:22 | Outpatient (CLI) | payer OTHER, SELFPAY ==
--- NOTE | 2024-10-03 08:27 | CTR_ITS ---
PROCEDURE INFORMATION: Exam: CT Abdomen And Pelvis With Contrast Exam date and time: 10/03/2024 8:51 AM Age: 89 years old Clinical indication: Abnormal findings; Abnormal lab test; Other: Elevated brad; Other: Loss of appetite weight loss; Additional info: Loss of appetite weight loss, elevated brad TECHNIQUE: Imaging protocol: Computed tomography of the abdomen and pelvis with contrast. Radiation optimization: All CT scans at this facility use at least one of these dose optimization techniques: automated exposure control; mA and/or kV adjustment per patient size (includes targeted exams where dose is matched to clinical indication); or iterative reconstruction. Contrast material: OMNI 350; Contrast volume: 100 ml; Contrast route: INTRAVENOUS (IV); COMPARISON: PT PET skull to thigh INIT [id number] 08/28/2023 8:45 AM RADIATION DOSE METRICS: Total DLP (mGy-cm): 363.56 FINDINGS: Lungs: Bibasilar subpleural reticulations. A 0.4 cm lung nodule is seen along the anterior segment of the right upper lobe. Esophagus: Mild distal esophageal wall thickening, which can be seen with esophagitis. Liver: Normal. No mass. Gallbladder and biliary ducts: Normal. No calcified stones. No ductal dilation. Pancreas: Pancreatic atrophy without main pancreatic duct dilatation. Spleen: Punctate calcifications consistent with remote granulomatous infection. Adrenal glands: Normal. No mass. Kidneys and ureters: Normal. No hydronephrosis. Simple renal cysts in the left kidney, no follow-up required. Stomach and bowel: No bowel obstruction. Stomach is normal in appearance. No mucosal thickening. Scattered colonic diverticuli without evidence of acute diverticulitis. Appendix: No evidence of appendicitis. Intraperitoneal space: Unremarkable. No free air or significant fluid collection. Vasculature: Scattered calcified atherosclerotic plaques in the abdominal aorta and iliac arteries without significant stenosis. Calcified and non-calcified plaques at the origin of the celiac artery with mild stenosis. Calcified plaques at the origin of the SMA with [id number]-[id number] stenosis. Lymph nodes: Unremarkable. No enlarged lymph nodes. Urinary bladder: Mild diffuse bladder wall thickening. Reproductive: Enlarged prostate with nodular indentation on the bladder base. Bones/joints: Compression deformities of the superior endplates of the L3 and T10 vertebral bodies. Compression fracture of the L1 vertebral body with post-vertebroplasty changes. Soft tissues: Unremarkable. CT/CT abdomen pelvis w con* [id number] IMPRESSION: 1. Right upper lobe 0.4 cm lung nodule and bibasilar subpleural reticulations; nonspecific, consider follow-up if clinically indicated. 2. Mild distal esophageal wall thickening, possibly related to esophagitis. 3. Pancreatic atrophy without ductal dilatation. 4. 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 Mild diffuse bladder wall thickening. 6. Prostatomegaly with nodular indentation of the bladder base. Defer to clinical and laboratory assessment/PSA levels. 7. Chronic compression deformities of L3 and T10. Compression fracture of L1 with vertebroplasty. COMMENTS: Consistent with the [employer]'s Incidental Findings Committee white paper (J Am Consuelo Radiol 2018): Any incidental renal lesion less than 1 cm or classified as too small to characterize, or any incidental cystic renal lesion characterized as simple-appearing, is likely benign. No follow-up imaging is recommended for these lesions per consensus recommendations based on imaging criteria.
[2024-10-03] MEDS: iohexol 350 mg/mL 500 mL Btl (per mL) IV (08:31)
== END 2024-10-03 08:23 | disposition home or self-care (01) ==
PROVIDERS: PCP Electrodiagnostic Medicine; Visit Provider Family Medicine
DX: R79.89 Other specified abnormal findings of blood chemistry (principal); R91.8 Other nonspecific abnormal finding of lung field; K86.89 Other specified diseases of pancreas; I77.1 Stricture of artery; N40.0 Benign prostatic hyperplasia without lower urinary tract symptoms; S32.030A Wedge compression fracture of third lumbar vertebra, initial encounter for closed fracture; S22.070A Wedge compression fracture of T9-T10 vertebra, initial encounter for closed fracture; X58.XXXA Exposure to other specified factors, initial encounter
CPT/HCPCS: 74177

== ENCOUNTER 2024-10-13 07:53 | Outpatient (RCR) | payer OTHER, SELFPAY | END 2024-10-20 23:59 | disposition home or self-care (01) | LOC: SPT 07:53 | PROVIDERS: Visit Provider Family Medicine | DX: S32.009D Unspecified fracture of unspecified lumbar vertebra, subsequent encounter for fracture with routine healing (principal); X58.XXXD Exposure to other specified factors, subsequent encounter | CPT/HCPCS: 97110; 97162 ==

== ENCOUNTER 2024-10-21 05:00 | Outpatient (RCR) | payer OTHER, SELFPAY | END 2024-11-20 23:59 | disposition home or self-care (01) | LOC: SPT 05:00 | PROVIDERS: Visit Provider Family Medicine | DX: S32.009D Unspecified fracture of unspecified lumbar vertebra, subsequent encounter for fracture with routine healing (principal); X58.XXXD Exposure to other specified factors, subsequent encounter | CPT/HCPCS: 97110 ==

== ENCOUNTER 2024-11-14 07:58 | Outpatient (CLI) | payer OTHER, SELFPAY ==
--- NOTE | 2024-11-14 08:21 | CT_ITS ---
WS: [id number] CT chest w con* [id number] HISTORY: RIGHT UPPER LOBE PNEUMONIA SEEN ON CT ABD TECHNIQUE: Axial imaging performed through the thorax. Coronal and sagittal reformats are submitted. All CT scans at [facility] use at least one of these dose optimization techniques: automated exposure control; mA and/or kV adjustment per patient size (includes targeted exams where dose is matched to clinical indication); or iterative reconstruction. CONTRAST: Omnipaque 350; 100 mL IV. DLP: 317.50 mGy.cm COMPARISON: 05/07/2023, 12/10/2015 Lungs and central airway: Pulmonary hyperinflation. Diffuse interstitial thickening has slowly progressed since 2015 and 2020. This is predominantly at the lung bases where it is most evident. Recently described area of groundglass attenuation in the medial LEFT lower lobe has resolved. There is a new area of increasing groundglass attenuation with central linear interstitial thickening in the RIGHT upper lobe. This complex measures 1.5 x 1.6 cm. The groundglass attenuation has slightly increased since 05/07/2023. There are additional small nodules which are stable. Perifissural nodules are stable. Pleura: Normal. No pleural effusion. Heart and pericardium: Mild LEFT atrial enlargement. Prior CABG. Mediastinum and monico: No mediastinum or hilar adenopathy. Stable RIGHT hilar lymph node, 9 mm. Vessels: Moderate atherosclerotic plaque within the thoracic aorta. No aneurysm. Mild pulmonary enlargement. Chest wall and lower neck: No soft tissue masses. Upper abdomen: Small hiatal hernia. Osseous structures: L1 compression fracture with kyphoplasty. New T6 compression fracture involving the superior endplate by 10%. New T10 compression fracture involving the superior endplate, 5%. CT/CT chest w con* [id number] IMPRESSION: 1. Interval complete resolution groundglass attenuation in the medial LEFT low er lobe. 2. Very slight progression of groundglass attenuation with central linear nodu le RIGHT upper lobe measures 1.5 x 1.6 cm. Recommend follow-up chest CT in 6 to 12 months. 3. No additional enlarging nodules. 4. No adenopathy. 5. Prior CABG. 6. New T6 and T10 compression fractures since 05/07/2023. These fractures were identified on the MRI from 09/18/2024.
[2024-11-14] MEDS: iohexol 350 mg/mL 500 mL Btl (per mL) IV (09:12)
[2024-11-14 10:00] LABS: Glucose Urine UA 2+ (Normal); Nitrate Urine Negative (Negative)
[2024-11-14 10:01] LABS: Hematocrit 46.1 % (37-53); Hemoglobin 15.40 g/dL (11.27-16.99); Mean Corpuscular HGB Conc 33.4 g/dL (30-55); Mean Corpuscular Hemoglobin 34.1 pg (27-33); Mean Corpuscular Volume 102.2 fl (82-101); Nucleated Red Blood Cells % 0 %; Platelet Count 208 10^3/cmm (157-399); Red Blood Count 4.51 10^6/uL (3.85-5.65); White Blood Count 5.77 10^3/uL (3.29-11.43)
[2024-11-14 10:05] LABS: Add Urine Microscopic? YES
[2024-11-14 10:23] LABS: Digoxin 1.3 ng/mL (0.6-1.2)
[2024-11-14 10:24] LABS: Specific Gravity, Urine 1.060 (1.005-1.030)
[2024-11-14 10:33] LABS: Anion Gap 16.1 (5-19); Blood Urea Nitrogen 19 mg/dL (8-23); Calcium 9.7 mg/dL (8.5-10.5); Carbon Dioxide 25 mmol/L (22-29); Chloride 101 mmol/L (98-107); Glucose 94 mg/dL (65-115); NT Pro B Type Natriuretic Pept 2808 pg/mL (0-450); Osmolality Calculated 288 mOsm/kg (285-295); Potassium 4.1 mmol/L (3.5-5.1); Sodium 138 mmol/L (136-145)
== END 2024-11-14 07:59 | disposition home or self-care (01) ==
PROVIDERS: Orthopaedic Surgery; Absent Provider Internal Medicine Interventional Cardiology; PCP Family Medicine; Visit Provider Family Medicine
DX: J18.9 Pneumonia, unspecified organism (principal); I48.21 Permanent atrial fibrillation; I25.810 Atherosclerosis of coronary artery bypass graft(s) without angina pectoris; I10 Essential (primary) hypertension; R91.1 Solitary pulmonary nodule; I34.0 Nonrheumatic mitral (valve) insufficiency; Z79.899 Other long term (current) drug therapy; Z79.01 Long term (current) use of anticoagulants; Z87.19 Personal history of other diseases of the digestive system; M48.54XA Collapsed vertebra, not elsewhere classified, thoracic region, initial encounter for fracture
CPT/HCPCS: 36415; 71260; 80048; 80162; 81001; 83880; 85025

== ENCOUNTER 2024-11-21 05:00 | Outpatient (RCR) | payer OTHER, SELFPAY | END 2024-12-02 11:27 | disposition home or self-care (01) | LOC: SPT 05:00 | PROVIDERS: PCP Family Medicine; Visit Provider Family Medicine | DX: S32.009D Unspecified fracture of unspecified lumbar vertebra, subsequent encounter for fracture with routine healing (principal); X58.XXXD Exposure to other specified factors, subsequent encounter | CPT/HCPCS: 97110 ==